=== PATIENT | male | born 1945 | race Caucasian/White ===

== ENCOUNTER → 2017-08-03 10:43 | Outpatient (CLI) | payer BC, SELFPAY | PROVIDERS: PCP Internal Medicine; Visit Provider Internal Medicine Cardiovascular Disease | DX: I48.91 Unspecified atrial fibrillation (principal); I48.92 Unspecified atrial flutter | CPT/HCPCS: 93005 ==

== ENCOUNTER → 2021-08-03 12:22 | Outpatient (CLI) | payer BC, SELFPAY | PROVIDERS: Visit Provider Internal Medicine | DX: I48.3 Typical atrial flutter (principal); I10 Essential (primary) hypertension; E78.5 Hyperlipidemia, unspecified; H65.02 Acute serous otitis media, left ear; L03.032 Cellulitis of left toe; Z12.5 Encounter for screening for malignant neoplasm of prostate ==

== ENCOUNTER → 2021-09-07 14:45 | Outpatient (CLI) | payer BC, SELFPAY ==
--- NOTE | 2021-09-07 14:52 | XR_ITS ---
FINAL REPORT CLINICAL HISTORY: CELLULITIS LT GREAT TOE FINDINGS: LEFT TOES Three views were obtained. There is no acute fracture or dislocation. There are mild degenerative changes of the great toe. There is a chronic calcification medial to the head of the 1st metatarsal. There is no acute bony erosion. There are vascular calcifications. IMPRESSION: Mild degenerative changes of the great toe. No acute bony erosion is identified. Reviewed, Interpreted and Dictated by Butch Jerez III, MD Transcribed by Dayan Palacios Authenticated by Butch Jerez III, MD on 09/07/2021 04:24:00 PM [facility]
--- NOTE | 2021-09-07 14:56 | XR_ITS ---
FINAL REPORT CLINICAL HISTORY: FEVER,CHILLS, FINDINGS: 2 views of the chest were obtained . The heart is normal in size. The mediastinum is within normal limits. There is mild pulmonary scarring. The lungs are otherwise clear. There is no pneumothorax. Osseous structures are unremarkable. IMPRESSION: No acute cardiopulmonary process. Reviewed, Interpreted and Dictated by Butch Jerez III, MD Transcribed by Sinai Vidal Authenticated by Butch Jerez III, MD on 09/07/2021 04:23:48 PM [facility]
[2021-09-07 15:35] LABS: Microscopic, Urine URINE MICROSCOPIC (MICROSCOPIC)
[2021-09-07 16:05] LABS: Basophils # 0.1 K/mm3 (0-0.2); Basophils % 0.7 % (0.1-2.0); Eosinophils # 0.2 K/mm3 (0.0-0.4); Eosinophils % 1.3 % (0.1-12.0); Hematocrit 45.1 % (42.0-52.0); Hemoglobin 15.5 g/dL (14.1-18.0); Lymphocytes # 3.4 K/mm3 (0.7-4.5); Mean Corpuscular HGB Conc 34.3 g/dL (31.8-35.4); Mean Corpuscular Hemoglobin 31.7 pg (27.0-31.2); Mean Corpuscular Volume 92.3 fl (80-94); Mean Platelet Volume 8.9 fl (7.4-10.4); Monocytes # 1.6 K/mm3 (0.1-1.0); Monocytes % 10.5 % (1.7-9.3); Neutrophils # 9.6 K/mm3 (1.8-7.8); Neutrophils % 64.5 % (37.0-80.0); Platelet Count 276 K/mm3 (142-424); Red Blood Count 4.89 M/mm3 (4.60-6.20); Red Cell Distribution Width 13.5 % (11.5-17.5); White Blood Count 14.8 K/mm3 (4.8-10.8)
[2021-09-07 16:23] LABS: Alanine Aminotransferase 28 U/L (12-78); Albumin Level 4.1 g/dl (3.5-5.0); Albumin/Globulin Ratio 1.4 (1.1-1.8); Alkaline Phosphatase 70 U/L (38-126); Anion Gap 12.4 mEq/L (5-15); Aspartate Amino Transferase 38 U/L (17-59); Bilirubin,Total 1.3 mg/dl (0.2-1.3); Blood Urea Nitrogen 22 mg/dl (9-20); Calcium 8.7 mg/dl (8.4-10.2); Carbon Dioxide 27 mmol/L (22.0-30.0); Chloride 99 mmol/L (98-107); Estimated Glomerular Filt Rate 82 ml/min (>60); GFR (African American) 100 ML/MIN (>60); Globulin 2.9 g/dL (1.3-3.2); Glucose 119 mg/dl (74-100); Potassium 4.4 mmoL/L (3.5-5.1); Sodium 134 mmol/L (136-145)
[2021-09-07 16:29] LABS: Erythrocyte Sedimentation Rate 27 mm/hr (0-20)
[2021-09-07 16:41] LABS: Appearance,Urine CLEAR (Clear); Blood, Urine Negative (Negative); Color,Urine DK YELLOW (Yellow); Glucose,Urine (UA) Negative (Negative); Ketones,Urine Negative (Negative); Leukocyte Esterase,Urine Negative (Negative); Nitrate,Urine Negative (Negative); PH,Urine 5.5 (5.0-8.5); Protein,Urine 1+ (Negative); Specific Gravity, Urine 1.025 (1.005-1.030)
[2021-09-07 17:00] LABS: Hemoglobin A1C 6.4 % (4.0-6.0)
[2021-09-07 17:04] LABS: Bilirubin,Urine 1+ (Negative)
[2021-09-07 17:09] LABS: Bacteria,Urine Trace /lpf; RBC,Urine Occasional #/hpf (0-3); Squamous Epithelial Cell,Urine Occasional #/hpf (0-5)
[2021-09-07 17:30] LABS: Vitamin B12 523 pg/mL (239-931)
[2021-09-07 17:41] LABS: Folate > 20.00 ng/mL
== END ==
PROVIDERS: PCP Internal Medicine; Visit Provider Internal Medicine
DX: R50.9 Fever, unspecified (principal); L03.031 Cellulitis of right toe; L03.032 Cellulitis of left toe; L98.492 Non-pressure chronic ulcer of skin of other sites with fat layer exposed
CPT/HCPCS: 36415; 71046; 73660; 80053; 81001; 82607; 82746; 83036; 83655; 85025; 85651; 87040; 87070; 87077; 87186; 87205

== ENCOUNTER → 2021-09-09 14:49 | Outpatient (CLI) | payer BC, SELFPAY ==
--- NOTE | 2021-09-09 | CA_ITS ---
APPROVED REPORT EXAM: Comprehensive 2D, Doppler, and color-flow Echocardiogram Lodge Officer: Delmi Watt, RCS, RVS Ht: 6 ft 0 in Wt: 265lbs BSA: 2.40 BP: 128/86 mmHg Rhythm: Atrial Fibrillation Indications: +blood cultrues-toe infectionx2 months, Hx-afib s/p ablation x2, with Left atrial clip due to viral infection. Echo Enhancing Agent Comments: Best exam possible due to chest circumference and poor acoustics. 2D Dimensions IVSd 1.41 cm LVEF (Visual) 51.80 % PWd 1.08 cm LA Volume 175.10 mL LVDd 5.45 cm LA Volume Index 72.619015 mL/m2 (M/F) 16-34 LVDs 3.99 cm Aortic Root 2.73 cm Left Atrium 5.07 cm LVOT 2.01 cm (M/F) 1.5-2.5 M-Mode Dimensions LA Diam 5.07 cm (1.9-4.0) Ao Diam 3.07 cm (2.0-3.7) TAPSE 2.02 (<1.7) LV Diastology E Decel Time 160.00 (160-240 msec) E/A Ratio 6.00 MED E' 10.20 (< 7 cm/sec) MED A' 4.10 cm/s E'/MED E' Ratio 9.65 (>14) LAT E' 13.20 (<10 cm/sec) LAT A' 3.80 cm/s E/LAT E' Ratio 7.45 (>14) Aortic Valve LVOT Max 119.00 (70-110 cm/s) LVOT VTI 21.11 cm AoV Peak Balta. 173.00 (50-130 cm/s) AO Peak GR. 12.00 mmHg AO Mean GR. 6.50 (<5 mmHg) AO VTI 29.00 (18-25 cm) VLADIMIR (VTI) 2.31 (2.5-4.5 cm2) Mitral Valve MV A Velocity 16.00 (40-130 cm/s) E/A Ratio 6.00 MV Decel. Time 160.00 (160-240 ms) Pulmonary Valve PV Peak Velocity 80.00 (50-150 cm/s) Tricuspid Valve TR P. Velocity 174.00 cm/s RAP Estimate 10.00 mmHg RVSP 22.00 mmHg Left Ventricle Technically difficult study because of the patient factors and poor acoustic windows, endocardial surfaces and valvular structures are poorly visualized. Moderately enlarged left atrium, normal left ventricular size, mild concentric left ventricular hypertrophy, ejection fraction 55% with no regional wall motion abnormality, diastolic parameters are inconclusive. Right Ventricle Right atrium is moderately enlarged, right ventricle is mildly dilated with normal contractility. Aortic Valve Aortic valve is thickened and calcified without Doppler evidence of aortic stenosis or aortic insufficiency. Mitral Valve Mitral valve leaflets are minimally thickened, there is mild mitral regurgitation. Tricuspid Valve Tricuspid grossly normal, there is mild tricuspid regurgitation, tricuspid regurgitation jet velocity is inadequate for calculation of the right ventricular systolic pressure. Pulmonic Valve Pulmonic valve is poorly visualized. Great Vessels Aortic root is normal size. Pericardium No significant pericardial effusion noted. Conclusion 1. Moderate biatrial alignment, normal left ventricular size, mild concentric left ventricular hypertrophy, estimated ejection fraction 55% with no regional wall motion abnormality, diastolic parameters are inconclusive. 2. Mildly enlarged right ventricle with normal contractility. 3. Thickened and calcified aortic valve without aortic stenosis aortic insufficiency. 4. Mild mitral and tricuspid regurgitation. 5. No significant pericardial effusion noted. 6. Inferior vena cava is poorly visualized. Electronically signed by : George Barillas MD 09/09/2021 21:39:48
== END ==
PROVIDERS: PCP Internal Medicine; Visit Provider Internal Medicine
DX: I10 Essential (primary) hypertension (principal); B95.61 Methicillin susceptible Staphylococcus aureus infection as the cause of diseases classified elsewhere
CPT/HCPCS: 93306

== ENCOUNTER 2021-09-11 11:00 | Outpatient (CLI) | payer BC, SELFPAY ==
[2021-09-11 11:35] VITALS: BP 126/73; PULSE 55; RESP 16; O2SAT 97
[2021-09-11 12:05] VITALS: BP 123/79; PULSE 51; RESP 16
[2021-09-11 12:35] VITALS: BP 126/72; PULSE 53; RESP 16
== END 2021-09-11 12:50 | disposition home or self-care (01) ==
LOC: INF 11:01
PROVIDERS: PCP Internal Medicine; Visit Provider Internal Medicine
DX: L03.032 Cellulitis of left toe (principal); B95.62 Methicillin resistant Staphylococcus aureus infection as the cause of diseases classified elsewhere
CPT/HCPCS: 96365; J0696

== ENCOUNTER 2021-09-12 10:06 | Outpatient (CLI) | payer BC, SELFPAY ==
[2021-09-12 10:08] VITALS: BP 125/80; PULSE 60; RESP 20; TEMP 36.4; O2SAT 97
== END 2021-09-12 11:30 | disposition home or self-care (01) ==
PROVIDERS: PCP Internal Medicine; Visit Provider Internal Medicine
DX: L03.032 Cellulitis of left toe (principal); B95.62 Methicillin resistant Staphylococcus aureus infection as the cause of diseases classified elsewhere
CPT/HCPCS: 96365; J0696

== ENCOUNTER 2021-09-13 09:56 | Outpatient (CLI) | payer BC, SELFPAY ==
[2021-09-13 10:03] VITALS: BP 128/78; PULSE 82; RESP 24; TEMP 36.7; O2SAT 97
--- NOTE | 2021-09-13 11:00 | PC.NURSE ---
All care and documentation by [facility]Tom nursing informatics analyst, completed under my direct supervision.
== END 2021-09-13 11:00 | disposition home or self-care (01) ==
PROVIDERS: PCP Internal Medicine; Visit Provider Internal Medicine
DX: L03.032 Cellulitis of left toe (principal); B95.62 Methicillin resistant Staphylococcus aureus infection as the cause of diseases classified elsewhere
CPT/HCPCS: 96365; J0696

== ENCOUNTER 2021-09-14 10:14 | Outpatient (CLI) | payer BC, SELFPAY ==
[2021-09-14 10:40] VITALS: BP 129/57; PULSE 53; RESP 18; O2SAT 100
[2021-09-14 11:20] VITALS: BP 118/63; PULSE 52; RESP 18
== END 2021-09-14 11:20 | disposition home or self-care (01) ==
LOC: INF 10:15
PROVIDERS: PCP Internal Medicine; Visit Provider Internal Medicine
DX: L03.032 Cellulitis of left toe (principal); B95.62 Methicillin resistant Staphylococcus aureus infection as the cause of diseases classified elsewhere
CPT/HCPCS: 96365; J0696

== ENCOUNTER 2021-09-15 10:00 | Outpatient (CLI) | payer BC, SELFPAY ==
[2021-09-15 10:37] VITALS: BP 124/84; PULSE 81; RESP 18; TEMP 36.4; O2SAT 97
[2021-09-15 11:28] VITALS: BP 132/82; PULSE 79; RESP 16; TEMP 36.4; O2SAT 97
== END 2021-09-15 11:30 | disposition home or self-care (01) ==
LOC: INF 10:01
PROVIDERS: PCP Internal Medicine; Visit Provider Internal Medicine
DX: L03.032 Cellulitis of left toe (principal); B95.62 Methicillin resistant Staphylococcus aureus infection as the cause of diseases classified elsewhere
CPT/HCPCS: 96365; J0696

== ENCOUNTER 2021-09-16 09:51 | Outpatient (CLI) | payer BC, SELFPAY ==
[2021-09-16 10:18] VITALS: BP 128/76; PULSE 54; RESP 16; TEMP 36.7; O2SAT 98
[2021-09-16 10:45] VITALS: BP 146/82; PULSE 56; RESP 16
== END 2021-09-16 10:45 | disposition home or self-care (01) ==
LOC: INF 09:51
PROVIDERS: PCP Internal Medicine; Visit Provider Internal Medicine
DX: L03.032 Cellulitis of left toe (principal); B95.62 Methicillin resistant Staphylococcus aureus infection as the cause of diseases classified elsewhere
CPT/HCPCS: 96365; J0696

== ENCOUNTER 2021-09-17 10:01 | Outpatient (CLI) | payer BC, SELFPAY ==
[2021-09-17 10:20] VITALS: BP 120/74; PULSE 67; RESP 18; O2SAT 97
[2021-09-17 10:55] VITALS: BP 113/73; PULSE 64; RESP 16
== END 2021-09-17 11:05 | disposition home or self-care (01) ==
LOC: INF 10:02
PROVIDERS: PCP Internal Medicine; Visit Provider Internal Medicine
DX: L03.032 Cellulitis of left toe (principal); B95.62 Methicillin resistant Staphylococcus aureus infection as the cause of diseases classified elsewhere
CPT/HCPCS: 96365; J0696

== ENCOUNTER 2021-09-18 09:59 | Outpatient (CLI) | payer BC, SELFPAY ==
[2021-09-18 10:16] VITALS: BP 126/80; PULSE 68; RESP 16; TEMP 36.4; O2SAT 97
[2021-09-18 11:12] VITALS: BP 122/69; PULSE 70; RESP 16; TEMP 36.4; O2SAT 98
== END 2021-09-18 11:12 | disposition home or self-care (01) ==
LOC: INF 10:00
PROVIDERS: PCP Internal Medicine; Visit Provider Internal Medicine
DX: L03.032 Cellulitis of left toe (principal); B95.62 Methicillin resistant Staphylococcus aureus infection as the cause of diseases classified elsewhere
CPT/HCPCS: 96365; J0696

== ENCOUNTER → 2021-09-19 09:54 | Outpatient (CLI) | payer BC, SELFPAY ==
[2021-09-19 10:09] VITALS: BP 141/86; PULSE 71; RESP 20; TEMP 36.7; O2SAT 97
== END ==
PROVIDERS: PCP Internal Medicine; Visit Provider Internal Medicine
DX: L03.032 Cellulitis of left toe (principal); B95.62 Methicillin resistant Staphylococcus aureus infection as the cause of diseases classified elsewhere
CPT/HCPCS: 96365; G0463; J0696

== ENCOUNTER 2021-09-20 10:45 | Outpatient (CLI) | payer BC, SELFPAY ==
[2021-09-20 11:03] VITALS: BP 125/71; RESP 20; O2SAT 96
== END 2021-09-20 11:46 | disposition home or self-care (01) ==
LOC: INF 10:46
PROVIDERS: PCP Internal Medicine; Visit Provider Internal Medicine
DX: L03.032 Cellulitis of left toe (principal); B95.62 Methicillin resistant Staphylococcus aureus infection as the cause of diseases classified elsewhere
CPT/HCPCS: 96365; J0696

== ENCOUNTER 2021-09-21 09:59 | Outpatient (CLI) | payer BC, SELFPAY ==
[2021-09-21 10:14] VITALS: BP 136/74; PULSE 68; RESP 18; TEMP 36.4; O2SAT 98
[2021-09-21 11:00] VITALS: BP 148/88; PULSE 57; RESP 18; O2SAT 98
== END 2021-09-21 11:00 | disposition home or self-care (01) ==
LOC: INF 10:00
PROVIDERS: PCP Internal Medicine; Visit Provider Internal Medicine
DX: L03.032 Cellulitis of left toe (principal)
CPT/HCPCS: 96365; J0696

== ENCOUNTER 2021-09-22 10:27 | Outpatient (CLI) | payer BC, SELFPAY ==
[2021-09-22 10:50] VITALS: BP 133/74; PULSE 56; RESP 18; TEMP 36.7; O2SAT 99
[2021-09-22 11:37] VITALS: BP 135/52; PULSE 77; RESP 18
== END 2021-09-22 11:37 | disposition home or self-care (01) ==
LOC: INF 10:28
PROVIDERS: PCP Internal Medicine; Visit Provider Internal Medicine
DX: L03.032 Cellulitis of left toe (principal); B95.62 Methicillin resistant Staphylococcus aureus infection as the cause of diseases classified elsewhere
CPT/HCPCS: 96365; J0696

== ENCOUNTER 2021-09-23 09:18 | Outpatient (CLI) | payer BC, SELFPAY ==
[2021-09-23 09:30] VITALS: BP 129/83; PULSE 64; RESP 18; TEMP 36.3; O2SAT 98
[2021-09-23 10:08] VITALS: BP 125/79; PULSE 69; RESP 18; O2SAT 98
== END 2021-09-23 10:08 | disposition home or self-care (01) ==
LOC: INF 09:19
PROVIDERS: PCP Internal Medicine; Visit Provider Internal Medicine
DX: L03.032 Cellulitis of left toe (principal); B95.62 Methicillin resistant Staphylococcus aureus infection as the cause of diseases classified elsewhere
CPT/HCPCS: 96365; J0696

== ENCOUNTER 2021-09-24 10:22 | Outpatient (CLI) | payer BC, SELFPAY ==
[2021-09-24 11:20] VITALS: BP 139/81; PULSE 66; RESP 18; TEMP 36.4; O2SAT 98
[2021-09-24 12:18] VITALS: BP 134/74; PULSE 59; RESP 16; TEMP 36.4; O2SAT 98
== END 2021-09-24 12:20 | disposition home or self-care (01) ==
LOC: INF 10:22
PROVIDERS: PCP Internal Medicine; Visit Provider Internal Medicine
DX: L03.032 Cellulitis of left toe (principal); B95.62 Methicillin resistant Staphylococcus aureus infection as the cause of diseases classified elsewhere
CPT/HCPCS: 96365; J0696

== ENCOUNTER 2022-02-11 10:00 | Outpatient (RCR) | payer BC, SELFPAY | END 2022-02-11 10:05 | disposition home or self-care (01) | LOC: PT 10:00 | PROVIDERS: PCP Internal Medicine; Visit Provider Internal Medicine | DX: L97.521 Non-pressure chronic ulcer of other part of left foot limited to breakdown of skin (principal) | CPT/HCPCS: 97140; 97162; 97164; 97597 ==

== ENCOUNTER 2024-01-23 10:36 | Outpatient (CLI) | payer BC, SELFPAY ==
--- NOTE | 2024-01-23 10:48 | XR_ITS ---
FINAL REPORT CLINICAL HISTORY: Fall from ladder 01/07/2024 COMPARISON: None FINDINGS: LEFT KNEE 3 views of the left knee were obtained. There is no acute fracture or dislocation. Osteophytes are noted along the superior margin of the patella. There is sharpening of the tibial spines. Soft tissues are unremarkable. IMPRESSION: No acute bony abnormality. Reviewed, Interpreted and Dictated by Brock Barajas MD Transcribed by Shira Berkowitz Authenticated and [facility]
== END 2024-01-23 23:59 | disposition home or self-care (01) ==
LOC: RAD 10:36
PROVIDERS: PCP Internal Medicine; Visit Provider Internal Medicine
DX: M25.562 Pain in left knee (principal); M25.462 Effusion, left knee
CPT/HCPCS: 73562

== ENCOUNTER 2024-05-31 12:45 | Emergency (ER) | payer MEDICARE, BC, SELFPAY ==
[2024-05-31 14:15] VITALS: BP 139/88; PULSE 102; RESP 19; TEMP 36.8; O2SAT 98; BMI 31.0
--- NOTE | 2024-05-31 14:31 | EXP.UTC ---
Discharge Plan Disposition Patient Disposition: Home, Self-Care Condition: Good Prescriptions Prescriptions: No Action metformin 500 mg tablet 500 mg PO BID Patient Comments: TAKE 1 TABLET 2 TIMES EACH DAY WITH MEALS metoprolol tartrate 100 mg tablet 100 mg PO BID Patient Comments: TAKE 1 TABLET BY MOUTH TWICE DAILY amlodipine 5 mg tablet 5 mg PO DAILY Patient Comments: TAKE 1 TABLET BY MOUTH DAILY Referrals Follow up/Referrals: Sánchez Torres MD [Primary Care Provider] - See instructions Activity Restrictions/Add. Instructions Additional Instructions/Restrictions: *Monitor Temp, Over the counter Motrin or Tylenol as directed/as needed Tylenol every 4 hours and Motrin every 6 hours (as long as your family doctor has told you that you can take it) for fever or pain. and straight to ER if unable to lower temp less than 101.0 after medication given *Warm salt water gargles may help to soothe the throat *Throat Lozenges? *Warm fluids like tea with honey may help to soothe the throat? *Sleep elevated *Humidifier/Vaporizer Follow up IMMEDIATELY for new or worsening symptoms or no Noticeable improvement over the next 48-72 hours. 911 for difficulty breathing or swallowing You was tested for RAPID COVID and influenza it should be back in the next few hours and be available on the [facility] [employer] [facility] Health Portal Clinical Impressions Clinical Impression: Viral syndrome Instructions Patient Instructions: DI for Viral Syndrome Print Language Print Language: Albanian Discharge ED Provider: Rachel Fox [facility] [place] General Stated complaint: Cough and congestion Mode of Arrival: Ambulatory Source of Information: Patient and Spouse Limitations: No Limitations Time Seen by Provider: 05/31/24 14:31 Description of Symptoms (Recalled from Triage Doc. by RN): PATIENT C/O COUGH, LOW-GRADE FEVER, AND BODY ACHES SINCE YESTERDAY HEENT Symptoms (Recalled from RN notes): No Resp Symptoms (Recalled from RN notes): Yes Skin Symptoms (Recalled from RN notes): No MS Symptoms (Recalled from RN notes): No Functional Status (Recalled from RN notes): WNL History of Present Illness Provider Complaint: Patient states that he started feeling bad yesterday with body aches, chills, nasal congestion and cough States today he wasnt feeling any better and cough getting worse and having body aches so he came in to get checked Related Data Home Medications ?Medication ?Instructions ?Recorded ?Confirmed amlodipine 5 mg tablet 5 mg PO DAILY 05/31/24 05/31/24 metformin 500 mg tablet 500 mg PO BID 05/31/24 05/31/24 metoprolol tartrate 100 mg tablet 100 mg PO BID 05/31/24 05/31/24 Allergies Allergy/AdvReac Type Severity Reaction Status Date / Time No Known Allergies Allergy Verified 04/26/24 14:51 Worker's Comp Is this a Worker's Comp case?: No [facility] Disclaimer: The information contained in this section may have been updated after the patient was seen, as this information can be updated by other users. Social History (Updated 04/30/24 @ 15:03 by Sánchez Torres MD) Smoking Status: Never smoker alcohol intake: never current occupational status: retired Travel in the last 8 weeks: Inside the [place] household members: spouse housing: house Have you lived/traveled outside US in past 30 days?: No Contact w/someone who lives/traveled outside US past 30 days?: No Exposure to someone with infectious disease in past 14 days?: No Do you have a fever (greater than 100.4 F or 38 C)?: No Have you tested positive for COVID-19: No Exposed to someone with COVID-19 in past 14 days?: No Do you have a sore throat?: No Do you have a cough?: No Do you have any weakness?: No Do you have any diarrhea?: No Are you experiencing any unusual bleeding?: No Do you have any muscle aches/pain?: No Do you have any abdominal pain?: No Are you experiencing loss of taste or smell?: No ROS Obtained: Yes All systems reviewed & no additional complaints except as documented and Yes Systems reviewed as appropriate & no additional complaints except as documented Constitutional Constitutional: Reports system reviewed and no additional complaints, except as documented, Reports as per HPI, Reports body ache, Reports chills and Reports fever(s) (low grade) ENT Ears, Nose, Mouth, and Throat: Reports system reviewed and no additional complaints, except as documented, Reports as per HPI, Reports nasal congestion and Reports nasal discharge Cardiovascular Cardiovascular: Reports system reviewed and no additional complaints, except as documented and Reports as per HPI Respiratory Respiratory: Reports system reviewed and no additional complaints, except as documented, Reports as per HPI and Reports cough Physical Exam General General appearance: alert and in no apparent distress ENT ENT exam: Present mucous membranes moist and TM's normal bilaterally Expanded ENT Exam Nose exam: Absent sinus tenderness Throat exam: Present normal inspection Respiratory Respiratory exam: Present normal lung sounds bilaterally; Absent respiratory distress or wheezes Cardiovascular Cardiovascular exam: Present regular rate, normal rhythm and normal heart sounds Abdominal Exam Abdominal exam: Present soft and normal bowel sounds; Absent distention or tenderness Neurological Exam Neurological exam: Present alert, oriented X3 and normal gait Medical Decision Making Medical Records Screening: Per USPSTF and CDC recommendations, given the prevalence of disease in our region, it is our hospital?s policy to screen for HIV and viral Hepatitis for all patients aged 18 and over and those with ongoing risk factors. Merlin Inquiry Pt receiving controlled substance: No Merlin was queried for this patient: No Vital Signs: 05/31/24 14:15 Temperature 98.3 F Temperature Source Oral Pulse Rate [Left Brachial] 102 H Respiratory Rate 19 Blood Pressure [Left Arm] 139/88 Blood Pressure Mean [Left Arm] 105 Blood Pressure Source [Left Arm] Automatic Cuff Blood Pressure Position [Left Arm] Sitting 02 Sat by Pulse Oximetry 98 Oxygen Delivery Method Room Air Lab Data Lab results reviewed: Yes I reviewed the patient's lab results.
[2024-05-31 14:38] LABS: UTC Influenza A Antigen Negative (Negative); UTC Influenza B Antigen Negative (Negative)
[2024-05-31 15:10] VITALS: BP 139/88; PULSE 102; RESP 19; TEMP 36.8; O2SAT 98
[2024-05-31 15:19] LABS: Coronavirus 19, PCR Not Detected (NotDetected); Influenza B, PCR Not Detected (NotDetected)
[2024-05-31 15:58] LABS: Influenza A, PCR Detected (NotDetected)
== END 2024-05-31 15:14 | disposition home or self-care (01) ==
PROVIDERS: Emergency Provider Nurse Practitioner; PCP Internal Medicine
DX: B34.9 Viral infection, unspecified (principal)
CPT/HCPCS: 87636; 87804; 99213; G0381

== ENCOUNTER 2024-06-05 14:04 | Outpatient (CLI) | payer MEDICARE, BC, SELFPAY | END 2024-06-05 23:59 | disposition home or self-care (01) | LOC: LAB.DROPOF 14:05 | PROVIDERS: PCP Internal Medicine; Visit Provider Internal Medicine | DX: S90.422A Blister (nonthermal), left great toe, initial encounter (principal); L08.9 Local infection of the skin and subcutaneous tissue, unspecified; B95.7 Other staphylococcus as the cause of diseases classified elsewhere | CPT/HCPCS: 87070; 87077; 87186; 87205 ==

== ENCOUNTER 2024-11-20 14:50 | Inpatient (IN) | payer MEDICARE, BC, SELFPAY ==
[2024-11-20] VITALS (23 sets, daily range): BP systolic 100–173; BP diastolic 64–101; PULSE 50–76; RESP 13–20; TEMP 36.1–36.7; O2SAT 92–100; BMI 33.0
--- NOTE | 2024-11-20 14:54 | ECG_ITS ---
APPROVED REPORT Exam: Resting ECG HR:76 bpm ECG Measurements Heart Rate 76 AXES QRSd 89 QRS 12 QT 399 T 51 QTc 429 Conclusion ATRIAL FIBRILLATION POSSIBLE RIGHT VENTRICULAR CONDUCTION DELAY [RSR (QR) IN V1/V2] ABNORMAL RHYTHM ECG Electronically signed by : JABARI DAVALOS, 11/22/2024 23:34:55
--- OUTSIDE RECORDS SUMMARY | 2024-11-20 15:07 | XMS_ITS | Clinical Summary ---
Author Organization [facility] [place] [id number] Care Team Providers Care Sole Cutter Name Role Phone Sánchez Torres MD Primary Care Provider [phone] Allergies No known active allergies Medications metoprolol tartrate (Lopressor) 100 MG tablet Take 100 mg by mouth 2 (two) times a day. 01/07/2022 Active aspirin 81 MG EC tablet Take 81 mg by mouth 1 (one) time each day. Active metFORMIN (Glucophage) 500 MG tablet TAKE ONE TABLET BY MOUTH TWICE DAILY FOR sugar --TAKE WITH FOOD-- 02/16/2022 Active amLODIPine (Norvasc) 5 MG tablet Take 5 mg by mouth 1 (one) time each day. 03/31/2022 Active Active Problems Problem Noted Date Diagnosed Date Obesity (BMI 35.0-39.9 without comorbidity) 05/06 Joint stiffness of foot, left 04/05/2022 Foot ulceration, right, with fat layer exposed 1 Ulcer of toe due to diabetes mellitus 02/15/2022 Acquired hallux valgus 02/15/2022 Diabetic neuropathy associat ed with type 2 diabetes mellitus 02/15/2022 Ulcer of toe of left foot, with fat layer expose d 02/15/2022 Family History Medical History Relation Name Comments Heart disease Father Stroke Father Relation Name Status Comments Father Social History Tobacco Use Types Packs/Day Years Used Date Smoking Tobacco: Never Smokeless Tobacco: Never Tobacco Cessation:Counseling Given: Not Answered Alcohol Use Standard Drinks/Week Comments Not Currently 0 (1 standard drink = 0.6 oz pur e alcohol) Sex and Gender Information Value Date Recorded Sex Assigned at Not on file Legal Sex Male 8:13 PM EDT Gender Identity Not on file Sexual Orientation Not on file Last Filed Vital Signs Vital Sign Reading Time Taken Comments Blood Pressure 129/83 05/24/2022 10:44 AM EST Pulse 60 05/24/2022 10:44 AM EST Temperature 36.8 C (98.3 F) 05/24/2022 10:44 AM EST Respiratory Rate 18 05/24/2022 10:44 AM EST Oxygen Saturation - - Inhaled Oxygen Concentration - - Weight 120 kg (265 lb) 03/22/2022 1:15 PM EDT Height 182.9 cm (6') 03/22/2022 1:15 PM EDT Body Mass Index 35.94 03/22/2022 1:15 PM EDT Plan of Treatment Health Maintenance Due Date Last Done Comments [facility]-Depression Screening 1945 [facility]-Hepatitis C Screening 1945 [facility]-/Child/Adol SDOH Screenings 1945 Diabetes: Dental Exam 1957 [facility]- SDOH Screenings 1965 [facility]-Adult SDOH Screenings 1965 [facility]-DTaP,Tdap,and Td Vaccines (1 - Tdap) 1966 [facility]-Zoster Vaccines (1 of 2) 1997 [facility]-Diabetes: Hemoglobin A1C 06/17/2018 12/18/2017, 08/01/2017 [facility]-Pneumococcal Vaccine: 50+ Years (2 of 2 - PCV) 01/03/2019 01/03/2018 [facility]-RSV Vaccine: 60+ Years or (1 - 1-dose 75+ series) 2022 [id number] Vaccine ( - season) 2024 02/27/2022, 03/05/2021, 07/11/2020, Additional history exists [facility]-Influenza Vaccine (Season Ended) 2025 02/27/2022 [facility]-Obesity Intervention Completed 022, 04/19/2022, 04/05/2022, Additional history exists HPV Vaccines Aged Out No longer eligi ble based on patient's age to complete this topic [facility]-HIB Vaccines Aged Out No longer e ligible based on patient's age to complete this topic [facility]-Hepatitis A Vaccines Aged Out No longer eligible based on patient's age to complete this topic [facility]-IPV Vaccines Aged Out No longer e ligible based on patient's age to complete this topic [facility]-Rotavirus Vaccines Aged Out No lo nger eligible based on patient's age to complete this topic [place] [address] [facility], [facility] Care Teams Sole Cutter Relationship Specialty Start Date End Date Sánchez Torres MD [address] [place] [address] PCP - General 02/15/22
--- NOTE | 2024-11-20 15:09 | PC.NURSE ---
DR AMBROCIO AT BEDSIDE
[2024-11-20] MEDS: ACETAMINOPHEN 500MG TAB 1000 MG PO (15:36)
[2024-11-20] MEDS: KETOROLAC 30MG/ML VIAL 15 MG IV (15:36)
--- NOTE | 2024-11-20 15:36 | XR_ITS ---
FINAL REPORT CLINICAL HISTORY: anterior chest wall pain by sternal notch COMPARISON: 10/30/2016 FINDINGS: CHEST 2 VIEWS PA AND LATERAL There is mild cardiomegaly. The mediastinum is unremarkable. Left atrial appendage clip is identified. There are mild chronic changes at the bases. There is no pneumothorax. IMPRESSION: No acute process. Reviewed, Interpreted and Dictated by Brock Barajas MD Transcribed by Sally Phan Authenticated and [facility]
--- NOTE | 2024-11-20 15:38 | HMH.EDCP ---
Discharge Plan Disposition Patient Disposition: Admitted Prescriptions Prescriptions: No Action aspirin [Adult Low Dose Aspirin] 81 mg tablet,delayed release (DR/EC) 81 mg PO DAILY metoprolol tartrate 100 mg tablet 100 mg PO BID Patient Comments: TAKE 1 TABLET BY MOUTH TWICE DAILY amlodipine 5 mg tablet 5 mg PO DAILY Patient Comments: TAKE 1 TABLET BY MOUTH DAILY Referrals Follow up/Referrals: Sánchez Torres MD [Primary Care Provider, Medical] - See instructions Clinical Impressions Clinical Impression: ST elevation (STEMI) myocardial infarction Print Language Print Language: Turkish Discharge ED Provider: Aly Scherer HPI General Chief Complaint: Chest Pain Stated Complaint: Chest Pain Time Seen by Provider: 11/20/24 15:10 Mode of Arrival: Ambulatory Source of Information: Patient Description of Symptoms (Recalled from ER Triage Doc. by RN): PT REPORTS INTERMITTENT UPPER CHEST PAIN THAT RADIATES TO JAW AND DOWN BILATERAL ARMS, DESCRIBES AT TINGLING. PT DENIES SHORTNESS OF BREATH, N/V OR ABDOMINAL PAIN. History of Present Illness HPI narrative: Please note that above description of symptoms, in this electronic medical record under categorization of recalled from ER triage doctor by RN are reflective of an initial nursing assessment, however, is not reflective of my full history and physical exam that was personally taken and clarified. Consequentially, this preceding description of symptoms, which may include the patient's categorized chief complaint in the EMR, do not reflect my personal clinical impression, and the ultimate description of history of present illness and patient stated complaints should be deferred to this section of the note. Unless stated otherwise or congruent with this section of the note, additional signs, symptoms, or incongruence should be interpreted as inaccurate with my clinical impression. Related Data Home Medications ?Medication ?Instructions ?Recorded ?Confirmed amlodipine 5 mg tablet 5 mg PO DAILY 05/31/24 11/20/24 metoprolol tartrate 100 mg tablet 100 mg PO BID 05/31/24 11/20/24 aspirin 81 mg tablet,delayed 81 mg PO DAILY 06/05/24 11/20/24 release (Adult Low Dose Aspirin) Allergies Allergy/AdvReac Type Severity Reaction Status Date / Time No Known Allergies Allergy Verified 11/20/24 15:12 [facility] Disclaimer: The information contained in this section may have been updated after the patient was seen, as this information can be updated by other users. Social History Smoking Status: Never smoker alcohol intake: never current occupational status: retired Travel in the last 8 weeks?: Inside the [place] household members: spouse housing: house Have you lived/traveled outside [place] in past 30 days?: No Contact w/someone who lives/traveled outside US past 30 days?: No Exposure to someone with infectious disease in past 14 days?: No Do you have a fever (greater than 100.4 F or 38 C)?: No Have you tested positive for COVID-19?: No Exposed to someone with COVID-19 in past 14 days?: No Do you have a sore throat?: No Do you have a cough?: No Do you have any weakness?: No Do you have any diarrhea?: No Are you experiencing any unusual bleeding?: No Do you have any muscle aches/pain?: No Do you have any abdominal pain?: No Are you experiencing loss of taste or smell?: No Other Medical History Have you received the Pneumonia Vaccine: Yes ROS Obtained: Yes All systems reviewed & no additional complaints except as documented Physical Exam General General appearance: alert and in no apparent distress Neck Neck exam: Present trachea midline Chest Chest inspection: Present normal inspection and symmetric chest wall rise; Absent tenderness Respiratory Respiratory exam: Present normal lung sounds bilaterally; Absent respiratory distress, wheezes, stridor, accessory muscle use or prolonged expiratory phase Cardiovascular Cardiovascular exam: Present normal rhythm, irregular rhythm, normal heart sounds and other (Pulses equal and symmetric in upper and lower extremities) Extremities Exam Extremities exam: Absent edema Neurological Exam Neurological exam: Present alert, oriented X3 and CN II-XII intact Skin Skin exam: Present warm and dry; Absent cyanosis, diaphoresis or pallor HEART Score HEART Score HEART Score assessment performed?: Yes History (anamnesis): Moderately suspicious ECG: Non-specific disturbance Age: >65 years Risk factors: 1-2 risk factors Troponin: </= normal limit HEART Score: 5 Critical Care Critical Care Time Critical Care Time: Yes (cardiac) Attestation: On 11/20/24, the high probability of a clinically significant, sudden or life threatening deterioration of the following system(s) required my full and direct attention, intervention and personal management. The time I documented below is in addition to time spent performing reported procedures but includes the following listed in this critical care notation. Total Time Total Critical Care Time: 35 Medical Decision Making Medical Records Medical records reviewed: Yes I reviewed the patient's medical records. Merlin Inquiry Pt receiving controlled substance: No Merlin was queried for this patient: No Vital Signs Vital Signs: 11/20/24 15:03 Temperature 98.0 F Temperature Source Oral Pulse Rate [Apical] 72 Respiratory Rate 18 Blood Pressure [Right Arm] 173/101 H Blood Pressure Mean [Right Arm] 125 Blood Pressure Source [Right Arm] Automatic Cuff Blood Pressure Position [Right Arm] Sitting 02 Sat by Pulse Oximetry 98 Oxygen Delivery Method Room Air Lab Data Labs: Lab Results 11/20/24 14:55: WBC 12.9 H, RBC 4.83, Hgb 15.1, Hct 43.9, MCV 90.9, MCH 31.3 H, MCHC 34.4, RDW 12.7, Plt Count 293, MPV 10.3, Neut % (Auto) 54.0, Lymph % (Auto) 34.0, [place] % (Auto) 9.4 H, Eos % (Auto) 1.7, Baso % (Auto) 0.5, Neut # (Auto) 7.0, Lymph # (Auto) 4.4, [place] # (Auto) 1.2 H, Eos # (Auto) 0.2, Baso # (Auto) 0.1, PT 11.0, INR 0.99, APTT 26.5, Sodium 134 L, Potassium 4.2, Chloride 100, Carbon Dioxide 31 H, Anion Gap 7.2, BUN 16, Creatinine 0.80, Estimated Creat Clear 97, Estimated GFR 94, Est GFR ( Amer) 113, Glucose 176 H, Calcium 9.2, Magnesium 1.9, Total Bilirubin 0.8, AST 31, ALT 24, Alkaline Phosphatase 55, Troponin I 0.10 H, NT-Pro-B Natriuret Pep 434, Total Protein 7.4, Albumin 4.2, Globulin 3.2, Albumin/Globulin Ratio 1.3, Lipase 202, HCV Ab CHANG w/Rflx PCR Qn Negative, HIV Ag/Ab Combo Qual Negative 11/20/24 14:55 11/20/24 14:55 Response Orders (Tests/Meds): ED MEDICATIONS Generic Name Dose Route Start Last Admin Trade Name Freq PRN Reason Stop Dose Admin Heparin Sodium (Porcine) 10,000 unit 11/20/24 17:03 Heparin Sodium 5,000 Unit/Ml Vial IV 11/20/24 17:04 ONCE ONE Nitroglycerin/Dextrose 250 mls @ 1.5 mls/hr 11/20/24 17:00 Nitroglycerin 50mg/250ml D5w IV 12/20/24 16:59 .Q24H MATTHIAS Protocol 5 MCG/MIN Discontinued Medications Generic Name Dose Route Start Last Admin Trade Name Janiya PRN Reason Stop Dose Admin Acetaminophen 1,000 mg 11/20/24 15:28 11/20/24 15:36 Acetaminophen 500mg Tab PO 11/20/24 15:29 1,000 mg ONCE ONE Administration Aspirin 324 mg 11/20/24 16:44 11/20/24 16:51 Aspirin 81mg Chewable Tablet PO 11/20/24 16:45 324 mg ONCE ONE Administration Ketorolac Tromethamine 15 mg 11/20/24 15:28 11/20/24 15:36 Ketorolac 30mg/Ml Vial IV 11/20/24 15:29 15 mg ONCE ONE Administration ORDERS Category Date Time Status CXR 2 view (NOT portable) [XR chest 2V] Stat Exams 11/20/24 15:36 Completed Complete Blood Count Auto Diff Stat Lab 11/20/24 14:55 Completed Comprehensive Metabolic Panel Stat Lab 11/20/24 14:55 Completed HIV Combo Stat Lab 11/20/24 14:55 Completed Hepatitis C Ab Qual. W/ RFX Stat Lab 11/20/24 14:55 Completed Lipase Stat Lab 11/20/24 14:55 Completed Magnesium Stat Lab 11/20/24 14:55 Completed NT Pro Brain Natriuretic Pep. Stat Lab 11/20/24 14:55 Completed PT INR [Prothrombin Time INR] Stat Lab 11/20/24 14:55 Completed PTT [Activated Partial Thrombo Time] Stat Lab 11/20/24 14:55 Completed Troponin I Q3H Lab 11/20/24 18:45 Ordered Troponin I Q3H Lab 11/20/24 21:45 Ordered Troponin I Stat Lab 11/20/24 14:55 Completed MDM Narrative Medical Decision Narrative: 79-year-old male presenting with chest pain. He states that the chest pain started about 3 days prior to this. He was not doing anything particular when it started. Has never had anything like this in the past. It is intermittent, severe in intensity when flares up, mild to completely gone when wanes. No shortness of breath, diaphoresis, nausea, vomiting, or any other associated symptoms. The pain starts in his upper chest near his sternal notch, radiates to both shoulders. Does not radiate to the back, jaw, down the arm, etc. No lower extremity edema, no PND orthopnea, has noticed anything that makes the pain better, just goes away on its own. Nothing in particular makes it worse including exertion, etc. Came in for further evaluation at the behest of his . History was obtained via conversation with patient and . On arrival, patient hemodynamically stable, alert, oriented x4, appropriate, GCS 15, moving all extremities spontaneously, pupils equal and reactive to light. Full physical exam performed and significant for very clinically well-appearing male no acute distress. Speaking in full sentences. Lungs are clear anteriorly and posterior bilaterally. Cardiac exam without murmurs gallops or rubs. He is in A-fib with irregular rhythm, but nontachycardic and rate controlled. Lower extremity pulses are intact and symmetric. No lower extremity edema. Grossly neurologically intact. Chest pain is not made worse with application of pressure directly to the chest differential includes musculoskeletal chest wall pain, ACS, [place], PE, pneumothorax, among others. Patient was given Toradol and acetaminophen for symptomatic management and correction of underlying abnormalities. Patient placed on continuous cardiac monitoring and continuous pulse ox with initial blood pressure 173/101, heart rate 72, saturation 98% on room air. Independent interpretation of EKG shows atrial fibrillation 76 bpm QRS 89, QTc 429. Normal axis. T wave inversions aVL. No elevations. Incomplete right bundle branch block morphology.. Workup independently interpreted and significant for nonactionable CBC or chemistry, but elevated troponin 0.1. On independent interpretation of imaging, nonactionable chest x-ray findings. See radiology read for full review of final results. Heart score 5. After troponin, repeat EKG obtained. Has deepening T wave inversions in aVL as well as what appear to be new elevations in 3 and aVF consistent with diagonal versus right coronary disease. Cardiology was contacted and case was discussed at length, patient to go to [facility] in the setting of STEMI. [employer]umbling [employer] Supervisor disclaimer Much of this encounter note is an electronic diplomatic interpreter/translator spoken language to printed text. Electronic diplomatic interpreter/translator of the spoken language may permit errors. Although I have reviewed the note, some errors may still exist.
[2024-11-20 15:40] LABS: Basophils # 0.1 K/mm3 (0-0.2); Basophils % 0.5 % (0.1-2.0); Eosinophils # 0.2 Kmm3 (0.0-0.4); Eosinophils % 1.7 % (0.1-12.0); Hematocrit 43.9 % (42.0-52.0); Hemoglobin 15.1 g/dL (14.1-18.0); Immature Granulocytes # 0.05 10^3uL; Immature Granulocytes % 0.4 %; Lymphocytes # 4.4 K/mm3 (0.7-4.5); Mean Corpuscular HGB Conc 34.4 g/dL (31.8-35.4); Mean Corpuscular Hemoglobin 31.3 pg (27.0-31.2); Mean Corpuscular Volume 90.9 fl (80-94); Mean Platelet Volume 10.3 fl (7.4-10.4); Monocytes # 1.2 K/mm3 (0.1-1.0); Monocytes % 9.4 % (1.7-9.3); Nucleated Red Blood Cells # 0 10^3/uL; Nucleated Red Blood Cells % 0 %; Platelet Count 293 K/mm3 (142-424); Red Blood Count 4.83 M/mm3 (4.60-6.20); Red Cell Distribution Width 12.7 % (11.5-17.5); White Blood Count 12.9 K/mm3 (4.8-10.8)
[2024-11-20 15:45] LABS: Alanine Aminotransferase 24 U/L (12-78); Albumin Level 4.2 g/dl (3.5-5.0); Albumin/Globulin Ratio 1.3 (1.1-1.8); Alkaline Phosphatase 55 U/L (38-126); Anion Gap 7.2 mEq/L (5-15); Aspartate Amino Transferase 31 U/L (17-59); Bilirubin,Total 0.8 mg/dl (0.2-1.3); Blood Urea Nitrogen 16 mg/dl (9-20); Calcium 9.2 mg/dl (8.4-10.2); Carbon Dioxide 31 mmol/L (22.0-30.0); Chloride 100 mmol/L (98-107); Creatinine Clearance Estimated 97 mL/min (50-200); Estimated Glomerular Filt Rate 94 ml/min (>60); GFR (African American) 113 ML/MIN (>60); Globulin 3.2 g/dL (1.3-3.2); Glucose 176 mg/dl (74-100); Lipase 202 U/L (23-300); Magnesium 1.9 mg/dl (1.6-2.3); Potassium 4.2 mmoL/L (3.5-5.1); Sodium 134 mmol/L (136-145); Total Protein,Serum 7.4 g/dl (6.3-8.2)
[2024-11-20 15:57] LABS: NT Pro Brain Natriuretic Pep. 434 pg/mL (0-450)
--- NOTE | 2024-11-20 15:57 | PC.NURSE ---
ROUNDED ON PT, NO NEEDS AT THIS TIME. CALL LIGHT WITHIN REACH
[2024-11-20 16:00] LABS: Activated Partial Thrombo Time 26.5 seconds (22.8-30.6)
[2024-11-20 16:01] LABS: INR 0.99 (0.9-1.1)
[2024-11-20 16:51] LABS: Hepatitis C Ab Qual. W/ RFX NEGATIVE (Negative)
[2024-11-20] MEDS: ASPIRIN 81MG CHEWABLE TABLET 324 MG PO (16:51)
--- NOTE | 2024-11-20 16:52 | PC.NURSE ---
DR AMBROCIO AT BEDSIDE TO UPDATE PT AND FAMILY
[2024-11-20 16:53] LABS: HIV Combo NEGATIVE (Negative)
--- NOTE | 2024-11-20 16:58 | ECG_ITS ---
APPROVED REPORT Exam: Resting ECG HR:66 bpm ECG Measurements Heart Rate 66 AXES QRSd 91 QRS 9 QT 409 T 65 QTc 423 Conclusion Atrial fibrillation Controlled response Incomplete right bundle branch block morphology ST depression aVL greater than [address] elevations 3 greater than aVF and 2 Concern for acute AGUSTÍN Electronically signed by : NATHAN AMBROCIO, 11/27/2024 07:36:03
--- NOTE | 2024-11-20 17:01 | PC.NURSE ---
DR AMBROCIO SPEAKING WITH DR GARCIA
--- NOTE | 2024-11-20 17:03 | PC.NURSE ---
STEMI ALERT CALLED
--- NOTE | 2024-11-20 17:09 | PC.NURSE ---
At Approx 1705 hrs a STEMI Alert was called on this pt.
--- NOTE | 2024-11-20 17:12 | PC.NURSE ---
CONSENT EXPLAINED AND SIGNED BILATERAL GROIN AND WRIST CLIPPED ZOLL PADS IN PLACE
--- NOTE | 2024-11-20 17:20 | IR_ITS ---
APPROVED REPORT Patient Location: [facility] Billing Clerk: ORTEGA Cash RT (R) PROCEDURES Left heart catheterization Selective coronary angiogram Drug-eluting stent deployment to the ostial and proximal dominant right coronary artery with additional drug-eluting stent deployment to the mid and distal dominant right coronary in a noncontiguous manner INDICATION Acute inferior ST elevation myocardial infarction, Coronary artery disease Informed consent was obtained prior to the procedure. COMPLICATIONS NONE Estimated Blood Loss: LESS THAN 10 ML TECHNIQUE One percent lidocaine used to anesthetize the right anterior aspect of the wrist. The right radial artery was accessed via the Seldinger technique. A 6 Divehi sheath was placed in the right radial artery. 2.5 mg of Verapamil, 800 mcg of nitroglycerin, 1mg Lidocaine were given through the arterial sheath. The JL3 catheter was also used to performselective coronary angiogram. An AL 0.75 guide catheter was used to intubate the right coronary artery followed by a Choice PT extra-support wire pushed through the subtotal occlusion of the mid right coronary artery. A guide liner was advanced and a 3 mm x 12 mm noncompliant balloon was deployed at 20 miguel on 2 occasions to reduce the critical stenosis. This was followed by a 5 mm x 26 mm Perry frontier stent deployed at 26 miguel reducing the critical stenosis to 0%. KEVAN I flow was improved to KEVAN-3 flow. Following this an additional 5 mm x 30 mm [place] frontier stent was deployed in the ostial proximal segment at 20 miguel reducing the critical stenosis to 0%. At the end the procedure the apparatus was removed the sheath was removed and hemostasis was achieved using TR banding patient was transferred to the postop putting in stable condition ANGIOGRAPHIC RESULTS The left main artery Normal The left anterior descending artery Is proximally normal and then has an additional 40% calcified stenosis in the midportion with distal 60 and 70% calcified stenoses as the LAD wraps the apex. It gives rise to a large heavily diseased first diagonal artery which has a proximal calcified complex 80% stenosis. The vessel then gives rise to a small to medium size superior branch and then a subtotally occluded smaller inferior branch The circumflex artery Is nondominant and has severe vascular ectasia in the proximal and midportion. It gives rise to a small first obtuse marginal artery which has 30 to 40% proximal stenoses and a medium sized second obtuse marginal artery which has a calcified 50% mid vessel stenosis. The third obtuse marginal artery is small and patent The right coronary artery There is a dominant vessel extensively and severely calcified with severe vascular ectasia throughout. Ostially there is a 70% stenosis with proximal 60% followed by an additional calcified 60% stenosis. The 40% calcified eccentric stenosis is identified. The midportion is a complex calcified 95% stenosis accompanied by KEVAN I flow. Following revascularization the posterior descending artery is patent while the posterior lateral branch has a mid vessel calcified 90% stenosis along a 90 degree bend which then bifurcates into 2 small branches both of which have ostial calcified 80% stenosis The RODRÍGUEZ ventriculogram reveals Not performed The left ventricular end-diastolic pressure Not measured IMPRESSION Acute inferior ST elevation myocardial infarction involving the mid dominant right coronary artery Successful stenting of the ostial proximal calcified right coronary artery severe disease reduced to 0% with 1 drug-eluting stent followed by an additional drug-eluting stent reducing a critical stenosis to 0% Moderate to severe diffuse vascular ectasia throughout the right coronary artery Severely diseased posterior lateral branch which is along a 90% bend which is not amenable to percutaneous revascularization Severely diseased first diagonal artery which is not amenable nor appropriate for percutaneous intervention Small vessel disease in the distal LAD which is not amenable to percutaneous revascularization 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 Aspirin Plavix 2. LDL less than 55 to be achieved with high intensity statin 3. Supportive care 4. Medical management for the remaining coronary artery disease 5. Official echocardiogram in the morning 6. Continuous telemetry for at least 48 hours Electronically signed by : Anjel Huston MD 11/20/2024 18:25:00
[2024-11-20] MEDS: HEPARIN SODIUM 5,000 UNIT/ML VIAL 10000 UNIT IV (17:23)
[2024-11-20] MEDS: NITROGLYCERIN IN 5 % DEXTROSE 250 ML 1.5 MG IV (17:25)
--- NOTE | 2024-11-20 17:27 | PC.NURSE ---
DR STALLINGS NOTIFIED OF STEMI ALERT AND PT GOING TO CATHLAB AND WILL NEED ADMISSION
--- NOTE | 2024-11-20 17:32 | PC.NURSE ---
PT TO CATHLAB VIA STRETCHER REPORT GIVEN TO RC FERRIS
--- NOTE | 2024-11-20 17:33 | PC.NURSE ---
1732 pt was taken to the Lathe Set Up Operator
[2024-11-20] MEDS: diphenhydrAMINE 50MG/ML VIAL 50 MG IV (18:12)
[2024-11-20] MEDS: HEPARIN 1,000 UNITS/500ML NS (CATH LAB) 3000 UNIT IV (18:12)
[2024-11-20] MEDS: 0.9 % SODIUM CHLORIDE 500 ML 25 ML IV (18:12)
[2024-11-20] MEDS: NITROGLYCERIN 800MCG/8ML SYR (CATH LAB) 800 MCG IA (18:12)
[2024-11-20] MEDS: FENTANYL 100MCG/2ML VIAL 50 MCG IV (18:13)
[2024-11-20] MEDS: LIDOCAINE 1% 10ML MDV 10 ML IJ (18:13)
[2024-11-20] MEDS: VERAPAMIL 2.5MG/ML 2ML VIAL 2.5 MG IV (18:13)
[2024-11-20] MEDS: HEPARIN 1,000 UNITS/ML 10ML VIAL (CATH LAB) 5000 UNIT IV (18:13)
[2024-11-20] MEDS: MIDAZOLAM HCL 1MG/ML 5ML VIAL 1 MG IV (18:13)
[2024-11-20] MEDS: CLOPIDOGREL 300MG TABLET 600 MG PO (18:22)
[2024-11-20] MEDS: IOPAMIDOL-370 (76%);100ML BOTTLE 125 ML IV (18:45)
[2024-11-20 18:47] LABS: CATHL Activated Clotting Time 258 SEC (74-125)
[2024-11-20 18:48] LABS: CATHL Activated Clotting Time 227 SEC (74-125)
--- NOTE | 2024-11-20 19:20 | P.HP_ITS ---
<Statement entered by Frantz Lemon MD - 11/20/24 20:06> Rounded on patient after nurse practitioner. Personally examined and interviewed patient. Agree with exam findings and care plan as documented. History of Present Illness *Admission Date: 11/20/24 *Reason for visit:: Chest pain *History of present illness: This is a 79-year-old male who has a past medical history significant for atrial fibrillation, hypertension, impaired glucose, and peripheral neuropathy who presents with a chief complaint of chest pain. Due to patient's symptoms, he presented to the emergency room for evaluation. While in emergency room, patient had an EKG that was consistent with a STEMI in the inferior. Due to these findings, patient was transition to the Trauma Counsellor for left heart cath. Patient did receive 2 drug-eluting stents to the right coronary artery. Post cath, patient has been admitted for further management. During my evaluation of the patient, patient states his chest pain started approximately 3 days ago. Patient states his chest pain was with out activity. He also mentions that his chest pain is midsternal and radiates to both shoulders and is intermittent. He voices that his chest pain waxes and wanes and it was without any diaphoresis, nausea, vomiting, or shortness of air. Post cath, patient states his chest pain has resolved. Currently, he is denying any lightheadedness, dizziness, fever, chills, rigors, PND, orthopnea, nausea, vomiting, shortness of breath, dyspnea, or diarrhea. Patient is currently in a sinus bradycardia. Additional pertinent labs obtained include white blood cell count of 12.9, sodium 134, carbon oxide of 31, blood glucose 176, and troponin of 0.10. [facility] Disclaimer: The information contained in this section may have been updated after the patient was seen, as this information can be updated by other users. Social History Smoking Status: Never smoker alcohol intake: never current occupational status: retired Travel in the last 8 weeks?: Inside the [place] household members: spouse housing: house Have you lived/traveled outside US in past 30 days?: No Contact w/someone who lives/traveled outside US past 30 days?: No Exposure to someone with infectious disease in past 14 days?: No Do you have a fever (greater than 100.4 F or 38 C)?: No Have you tested positive for COVID-19?: No Exposed to someone with COVID-19 in past 14 days?: No Do you have a sore throat?: No Do you have a cough?: No Do you have any weakness?: No Do you have any diarrhea?: No Are you experiencing any unusual bleeding?: No Do you have any muscle aches/pain?: No Do you have any abdominal pain?: No Are you experiencing loss of taste or smell?: No Other Medical History Have you received the Pneumonia Vaccine: Yes Review of Systems Review of Systems Review of systems:: pertinent systems reviewed and negative unless documented below Constitutional Constitutional: Reports system reviewed and no additional complaints, except as documented Eyes Eyes: Reports system reviewed and no additional complaints, except as documented ENT Ears, Nose, Mouth, and Throat: Reports system reviewed and no additional complaints, except as documented *Cardiovascular Cardiovascular: Reports chest pain and Reports chest pain at rest *Respiratory Respiratory: Reports system reviewed and no additional complaints, except as documented *Gastrointestinal Gastrointestinal: Reports system reviewed and no additional complaints, except as documented *Genitourinary Genitourinary: Reports system reviewed and no additional complaints, except as documented *Musculoskeletal Musculoskeletal: Reports system reviewed and no additional complaints, except as documented Integumentary/Breasts Skin/Breast: Reports system reviewed and no additional complaints, except as documented *Neurologic Neurologic: Reports system reviewed and no additional complaints, except as documented Psychiatric Psychiatric: Reports system reviewed and no additional complaints, except as documented Endocrine Endocrine: Reports system reviewed and no additional complaints, except as documented Hematologic/Lymphatic Hematologic/Lymphatic: Reports system reviewed and no additional complaints, except as documented Allergic/Immunologic Allergic/Immunologic: Reports system reviewed and no additional complaints, except as documented Meds Home Medications and Allergies Home Medications ?Medication ?Instructions ?Recorded ?Confirmed ?Type amlodipine 5 mg tablet 5 mg PO DAILY 05/31/2411/20 History metoprolol tartrate 100 mg tablet 100 mg PO BID 11/20/24 History aspirin 81 mg tablet,delayed 81 mg PO DAILY 06/05/24 0 11/20/24 History release (Adult Low Dose Aspirin) New Prescriptions to Start Prescriptions: Allergies Allergy/AdvReac Type Severity Reaction Status Date / Time No Known Allergies Allergy Verified 11/20/24 15:12 Exam Data for Last 24 hours Vital signs and Labs for Last 24 Hours: Temp Pulse Resp BP Pulse Ox O2 Del Method 97 F L 63 18 135/81 97 Room Air 11/20/24 18:25 11/20/24 18:43 11/20/24 18:43 11/20/24 18:43 11/20/24 18:43 11/20/24 19:00 Laboratory Results - last 24 hr 11/20/24 14:55: WBC 12.9 H, RBC 4.83, Hgb 15.1, Hct 43.9, MCV 90.9, MCH 31.3 H, MCHC 34.4, RDW 12.7, Plt Count 293, MPV 10.3, Neut % (Auto) 54.0, Lymph % (Auto) 34.0, Kay % (Auto) 9.4 H, Eos % (Auto) 1.7, Baso % (Auto) 0.5, Neut # (Auto) 7.0, Lymph # (Auto) 4.4, [place] # (Auto) 1.2 H, Eos # (Auto) 0.2, Baso # (Auto) 0.1, PT 11.0, INR 0.99, APTT 26.5, Sodium 134 L, Potassium 4.2, Chloride 100, Carbon Dioxide 31 H, Anion Gap 7.2, BUN 16, Creatinine 0.80, Estimated Creat Clear 97, Estimated GFR 94, Est GFR ( Amer) 113, Glucose 176 H, Calcium 9.2, Magnesium 1.9, Total Bilirubin 0.8, AST 31, ALT 24, Alkaline Phosphatase 55, Troponin I 0.10 H, NT-Pro-B Natriuret Pep 434, Total Protein 7.4, Albumin 4.2, Globulin 3.2, Albumin/Globulin Ratio 1.3, Lipase 202, HCV Ab CHANG w/Rflx PCR Qn Negative, HIV Ag/Ab Combo Qual Negative 11/20/24 17:48: Activated Clotting Time 227 H* 11/20/24 18:11: Activated Clotting Time 258 H* I & O for Last 24 hours: Intake & Output 11/17/24 11/18/24 11/19/24 11/20/24 23:59 23:59 23:59 23:59 Weight 110.677 kg Constitutional Constitutional: no acute distress, obese and cooperative *Routine HEENT Exam Head: Present normocephalic and atraumatic Eye: Present EOMI and PERRL ENT: Present mucous membranes moist *Routine Neck Exam Neck: Present supple, full ROM and trachea midline *Routine Respiratory Exam Respiratory: Present CTA bilaterally, normal respiratory effort, able to speak in complete sentences and symmetric chest movement *Routine Cardiovascular Exam Cardiovascular: Present Normal S1, Normal S2 and irregular rhythm *Routine Abdominal Exam Abdominal: Present soft, normoactive bowel sounds and obese *Routine Rectal Exam Rectal:: deferred *Routine Genitalia Exam Genitalia:: deferred *Routine Extremities Exam Extremities: Present full ROM, pulses intact and normal capillary refill Routine Back/Spine/Pelvis Exam Back/Spine: Present full ROM *Routine Skin Exam Skin: Present intact, dry and normal turgor *Routine Neurological Exam Neurological: Present alert, oriented X3, CN II-XII intact and moving all extremities Routine Psychiatric Exam Psychiatric: Present normal affect, normal thought process, cooperative, good insight and good judgment H&P: Result Impressions 72-year-old male who presents with a chief complaint of intermittent chest pain over the past 3 days is found to have coronary artery disease requiring drug-eluting stents to the RCA x 2. Post cath, patient is without any chest pain Assessment and Plan *Assessment and plan (1) ST elevation (STEMI) myocardial infarction: Status: Acute Qualifiers: Involved coronary artery: right coronary artery Qualified Code(s): I21.11 - ST elevation (STEMI) myocardial infarction involving right coronary artery Category: Medical Code(s): I21.3 - ST elevation (STEMI) myocardial infarction of unspecified site (2) Afib: Status: Acute Qualifiers: Atrial fibrillation type: longstanding persistent Qualified Code(s): I48.11 - Longstanding persistent atrial fibrillation Category: Medical Code(s): I48.91 - Unspecified atrial fibrillation (3) CAD (coronary artery disease): Status: Acute Qualifiers: Coronary Disease-Associated Artery/Lesion type: [place] artery [place] vs. transplanted heart: [place] heart Associated angina: with unspecified form of angina Qualified Code(s): I25.119 - Atherosclerotic heart disease of [place] coronary artery with unspecified angina pectoris Category: Medical Code(s): I25.10 - Atherosclerotic heart disease of [place] coronary artery without angina pectoris (4) Leukocytosis: Status: Acute Qualifiers: Leukocytosis type: unspecified Qualified Code(s): D72.829 - Elevated white blood cell count, unspecified Category: Medical Code(s): D72.829 - Elevated white blood cell count, unspecified Plan Assessment: Chest pain: STEMI: In the inferior: Coronary artery disease: - Patient is status post drug-eluting stents to the right coronary artery x 2 - Patient has been prescribed dual antiplatelet therapy (81 mg of aspirin and 75 mg of Plavix) more than likely patient will require at least 6 months of therapy - Will obtain 2D echo - Will continue to trend patient's troponin Atrial fibrillation with controlled ventricular response -Will continue metoprolol if heart rate is greater than 60 Leukocytosis - Currently there are no active signs of infection - Will trend white blood cell count - If fever we will obtain blood cultures x 2 and additional imaging - Will obtain procalcitonin Plan: Admit patient to the stepdown unit in on telemetry security monitor Activity as tolerated Vital signs every 4 hours Appreciate any input from cardiology Cardiac diet Hemoglobin A1c Lipid panel TSH BMP/CBC Full code I have discussed this case with attending physician Dr. Lemon and I look forward to more input
[2024-11-20 19:41] LABS: Blood Urea Nitrogen 14 mg/dl (9-20); Calcium 8.7 mg/dl (8.4-10.2); Carbon Dioxide 27 mmol/L (22.0-30.0); Chloride 104 mmol/L (98-107); Creatinine Clearance Estimated 97 mL/min (50-200); Estimated Glomerular Filt Rate 109 ml/min (>60); GFR (African American) 132 ML/MIN (>60); Glucose 97 mg/dl (74-100); Sodium 133 mmol/L (136-145)
[2024-11-20 20:08] LABS: Troponin I 0.31 ng/ml (0.00-0.034)
--- NOTE | 2024-11-20 22:10 | PC.NURSE ---
radial band off at this time, telfa and tegaderm applied
[2024-11-20 22:11] LABS: Basophils # 0.1 K/mm3 (0-0.2); Basophils % 0.5 % (0.1-2.0); Eosinophils # 0.2 Kmm3 (0.0-0.4); Eosinophils % 2.1 % (0.1-12.0); Hematocrit 40.5 % (42.0-52.0); Hemoglobin 13.6 g/dL (14.1-18.0); Immature Granulocytes # 0.07 10^3uL; Immature Granulocytes % 0.6 %; Lymphocytes # 4.1 K/mm3 (0.7-4.5); Lymphocytes % 35.1 % (10-50); Mean Corpuscular HGB Conc 33.6 g/dL (31.8-35.4); Mean Corpuscular Hemoglobin 30.2 pg (27.0-31.2); Mean Platelet Volume 10.2 fl (7.4-10.4); Monocytes # 1.1 K/mm3 (0.1-1.0); Monocytes % 9.1 % (1.7-9.3); Neutrophils # 6.2 K/mm3 (1.8-7.8); Neutrophils % 52.6 % (37.0-80.0); Nucleated Red Blood Cells # 0 10^3/uL; Nucleated Red Blood Cells % 0 %; Platelet Count 261 K/mm3 (142-424); Red Cell Distribution Width 12.6 % (11.5-17.5); Red Cell Distribution Width-SD 41.4 fL; White Blood Count 11.7 K/mm3 (4.8-10.8)
[2024-11-21] VITALS (8 sets, daily range): BP systolic 109–156; BP diastolic 63–86; PULSE 60–130; RESP 16–25; TEMP 36.6–37.2; O2SAT 96–99; BMI 31.6
--- NOTE | 2024-11-21 03:37 | PC.NURSE ---
patient alert and oriented x4, ambulates to and from bathroom with standby assistance, rested well this shift. no complaints of pain, dressing applied to right radial cath site, patient remains in afib on tele with HR between 50s-60s. patient tolerating room air with o2 sats >95%. call button is in reach
--- NOTE | 2024-11-21 06:00 | CA_ITS ---
APPROVED REPORT EXAM: Comprehensive 2D, Doppler, and color-flow Echocardiogram Environmental Compliance Specialist: Delmi Watt, RCS, RVS Ht: 6 ft 0 in Wt: 244lbs BSA: 2.32 BP: 135/81 mmHg Indications: STEMI 2D Dimensions IVSd 1.25 cm LVEF (Visual) 63.90 % PWd 0.97 cm LVDd 5.09 cm LVDs 3.31 cm Left Atrium 4.80 cm M-Mode Dimensions RVDd 3.53 cm (0.9-2.6) LA Diam 5.28 cm (1.9-4.0) LVDd 5.10 cm (3.5-5.7) LVDs 3.72 cm (3.5-5.7) IVSd 1.10 cm (0.6-1.1) PWd 1.36 cm (0.6-1.1) EF (Teich) 56.30% EPSs 0.34 cm FS 29.70% EDV (Teich) 134.80 mL TAPSE 1.53 (<1.7) ESV (Teich) 58.90 mL LV Diastology E Decel Time 173 (160-240 msec) E/A Ratio 2.93 MED A' 2.50 cm/s LAT A' 3.10 cm/s Aortic Valve VLADIMIR Index 0.54 cm2/m2 AoV Peak Balta. 181.0 (50-130 cm/s) AO Peak GR. 13.10 mmHg AO Mean GR. 6.50 (<5 mmHg) AO VTI 32.6 (18-25 cm) VLADIMIR (VTI) 1.27 (2.5-4.5 cm2) Mitral Valve MV A Velocity 26.0 (40-130 cm/s) E/A Ratio 2.93 Pulmonary Valve FL End VMAX 187.0 cm/s Tricuspid Valve TR P. Velocity 244.00 cm/s RAP Estimate 10.00 mmHg RVSP 33.70 mmHg Left Ventricle The left ventricle is normal size. The left ventricular systolic function is low normal. Proximal septal thickening is present. IVSd 1.4 cm at the proximal septal LV wall. There is normal LV segmental wall motion. Diastolic function is indeterminate. LVEF is 50%. Right Ventricle The right ventricle is moderately dilated. The right ventricular systolic function is mildly reduced. Atria The left atrium is severely dilated. The right atrium is severely dilated. There is no Doppler evidence of interatrial shunt. Aortic Valve The aortic valve is mildly thickened. There is no hemodynamically significant aortic valvular stenosis. Trace aortic regurgitation. Mitral Valve The mitral valve is normal in structure. No evidence of mitral valve stenosis. Mild mitral regurgitation. . Tricuspid Valve Tricuspid valve is grossly normal in structure and function. Mild tricuspid regurgitation. RVSP 20-25 mmHg. Pulmonic Valve The pulmonary valve is normal in structure. Mild pulmonic regurgitation. Great Vessels The aortic root is normal in size. IVC is normal in size and collapses >50% with inspiration. Pericardium There is no pericardial effusion. Other Information Study Quality: Fair Conclusion Low normal LV systolic function (LVEF 50%). Proximal septal thickening. IVSd 1.4 cm. Moderate RV dilation with mild reduction in RV function. Severe biatrial dilation. Mild MR, mild TR, mild PI. In the setting of asymmetric proximal septal LV wall thickening of IVSd 1.4 cm, as well as biatrial dilation, further evaluation for hypertrophic versus infiltrative cardiomyopathy is suggested with cardiac MRI (amyloidosis + HCM protocol). Electronically signed by : Jessica Levy MD 11/21/2024 11:38:38
[2024-11-21 06:21] LABS: Basophils # 0.1 K/mm3 (0-0.2); Basophils % 0.5 % (0.1-2.0); Eosinophils # 0.3 Kmm3 (0.0-0.4); Hematocrit 43.2 % (42.0-52.0); Hemoglobin 14.5 g/dL (14.1-18.0); Immature Granulocytes # 0.05 10^3uL; Immature Granulocytes % 0.4 %; Lymphocytes # 3.1 K/mm3 (0.7-4.5); Lymphocytes % 23.6 % (10-50); Mean Corpuscular HGB Conc 33.6 g/dL (31.8-35.4); Mean Corpuscular Hemoglobin 30.4 pg (27.0-31.2); Mean Corpuscular Volume 90.6 fl (80-94); Mean Platelet Volume 10.3 fl (7.4-10.4); Monocytes # 1.4 K/mm3 (0.1-1.0); Monocytes % 10.9 % (1.7-9.3); Neutrophils # 8.2 K/mm3 (1.8-7.8); Neutrophils % 62.6 % (37.0-80.0); Nucleated Red Blood Cells # 0 10^3/uL; Nucleated Red Blood Cells % 0 %; Platelet Count 255 K/mm3 (142-424); Red Blood Count 4.77 M/mm3 (4.60-6.20); Red Cell Distribution Width 12.7 % (11.5-17.5); White Blood Count 13.1 K/mm3 (4.8-10.8)
[2024-11-21 06:39] LABS: Chloride 106 mmol/L (98-107); Sodium 136 mmol/L (136-145)
[2024-11-21 06:40] LABS: Potassium 4.1 mmoL/L (3.5-5.1)
[2024-11-21 06:43] LABS: Anion Gap 8.1 mEq/L (5-15); Blood Urea Nitrogen 12 mg/dl (9-20); Calcium 8.4 mg/dl (8.4-10.2); Carbon Dioxide 26 mmol/L (22.0-30.0); Creatinine Clearance Estimated 93 mL/min (50-200); Estimated Glomerular Filt Rate 109 ml/min (>60); GFR (African American) 132 ML/MIN (>60); Glucose 104 mg/dl (74-100)
[2024-11-21 07:08] LABS: Chol/HDL Ratio 5.7 (1-3.5); Cholesterol 195 mg/dl (140-200); HDL Cholesterol 34 mg/dl (40-60); Triglycerides 279 mg/dl (30-150); VLDL Cholesterol 56 mg/dL (0-40)
[2024-11-21 07:09] LABS: Thyroid Stimulating Hormone 3.74 uIU/mL (0.465-4.68)
[2024-11-21 07:19] LABS: Direct LDL Cholesterol 97.82 mg/dL (100-129)
[2024-11-21] MEDS: CLOPIDOGREL 75MG TAB 75 MG PO (08:33)
[2024-11-21] MEDS: ASPIRIN EC 81MG TABLET 81 MG PO (08:33)
[2024-11-21 08:40] LABS: Hemoglobin A1C 5.7 % (4.0-6.0)
[2024-11-21 09:16] LABS: Procalcitonin 0.053 ng/mL (0.0-2.0)
--- NOTE | 2024-11-21 10:22 | P.PN_ITS ---
<Statement entered by Frantz Lemon MD - 11/21/24 16:26> Rounded on patient after nurse practitioner. Personally examined and interviewed patient. Agree with exam findings and care plan as documented. Subjective *Date: 11/21/24 *Time: 14:59 Interval history: Patient sitting up in bed, denies chest pain, shortness of breath, abdominal pain, nausea, vomiting. He states that he had a great night. No complaints at this time. He says he ate breakfast well. Medical Exam Vital signs and Labs for Last 24 Hours: Vital Signs Temp Pulse Pulse Resp BP BP Pulse Ox 11/21/24 09:00 11/21/24 08:00 98 F 18 156/84 H 97 11/21/24 08:00 96 11/21/24 06:36 11/21/24 05:00 11/21/24 04:00 70 11/21/24 04:00 98.5 F 76 20 123/85 97 11/21/24 03:00 11/21/24 01:40 68 16 111/67 97 11/21/24 01:00 11/21/24 00:40 63 18 109/63 L 97 11/21/24 00:00 98.3 F 11/21/24 00:00 60 11/20/24 23:40 62 14 130/85 98 11/20/24 23:00 11/20/24 22:40 65 18 115/73 95 11/20/24 21:40 51 L 16 112/82 98 11/20/24 21:10 66 16 114/70 96 11/20/24 21:00 11/20/24 20:40 60 13 100/64 L 96 11/20/24 20:00 60 11/20/24 20:00 58 L 11/20/24 20:00 98.1 F 11/20/24 19:40 51 L 14 118/68 96 11/20/24 19:30 50 L 11/20/24 19:25 57 L 15 123/74 100 11/20/24 19:10 56 L 18 124/72 96 11/20/24 19:00 11/20/24 18:55 56 L 18 114/82 92 L 11/20/24 18:43 63 18 135/81 97 11/20/24 18:35 51 L 20 128/80 97 11/20/24 18:25 97 F L 70 58 L 18 129/85 96 11/20/24 17:47 98.0 F 71 18 153/91 H 11/20/24 17:30 67 153/91 H 100 11/20/24 17:26 76 154/95 H 99 11/20/24 17:13 73 156/98 H 11/20/24 16:30 65 17 135/77 99 11/20/24 16:00 62 18 150/82 H 99 11/20/24 15:30 17 145/91 H 11/20/24 15:03 98.0 F 72 18 173/101 H 98 11/20/24 15:00 18 160/98 H O2 Del Method 11/21/24 09:00 Room Air 11/21/24 08:00 Room Air 11/21/24 08:00 Room Air 11/21/24 06:36 Room Air 11/21/24 05:00 Room Air 11/21/24 04:00 11/21/24 04:00 Room Air 11/21/24 03:00 Room Air 11/21/24 01:40 Room Air 11/21/24 01:00 Room Air 11/21/24 00:40 Room Air 11/21/24 00:00 11/21/24 00:00 11/20/24 23:40 Room Air 11/20/24 23:00 Room Air 11/20/24 22:40 Room Air 11/20/24 21:40 Room Air 11/20/24 21:10 Room Air 11/20/24 21:00 Room Air 11/20/24 20:40 Room Air 11/20/24 20:00 11/20/24 20:00 Room Air 11/20/24 20:00 11/20/24 19:40 Room Air 11/20/24 19:30 11/20/24 19:25 Room Air 11/20/24 19:10 Room Air 11/20/24 19:00 Room Air 11/20/24 18:55 Room Air 11/20/24 18:43 Room Air 11/20/24 18:35 Room Air 11/20/24 18:25 Room Air 11/20/24 17:47 Room Air 11/20/24 17:30 11/20/24 17:26 11/20/24 17:13 11/20/24 16:30 11/20/24 16:00 11/20/24 15:30 11/20/24 15:03 Room Air 11/20/24 15:00 Intake and Output 11/20/24 11/21/24 11/21/24 23:59 07:59 15:59 Intake Total 240 / 550 310 / 550 Output Total 525 / 525 450 / 450 Balance -525 / -285 -210 / 100 310 / 100 Intake: Intake, Oral Amount 240 / 550 310 / 550 Output: Output, Urine Amount 525 / 525 450 / 450 Other: Number of Unmeasured Voids 0 Weight 105.778 kg Patient Weight 11/21/24 23:59 Weight 105.778 kg Laboratory Results - last 24 hr 11/20/24 14:55: WBC 12.9 H, RBC 4.83, Hgb 15.1, Hct 43.9, MCV 90.9, MCH 31.3 H, MCHC 34.4, RDW 12.7, Plt Count 293, MPV 10.3, Neut % (Auto) 54.0, Lymph % (Auto) 34.0, [place] % (Auto) 9.4 H, Eos % (Auto) 1.7, Baso % (Auto) 0.5, Neut # (Auto) 7 .0, Lymph # (Auto) 4.4, [place] # (Auto) 1.2 H, Eos # (Auto) 0.2, Baso # (Auto) 0.1, PT 11.0, INR 0.99, APTT 26.5, Sodium 134 L, Potassium 4.2, Chloride 100, Carbon Dioxide 31 H, Anion Gap 7.2, BUN 16, Creatinine 0.80, Estimated Creat Clear 97, Estimated GFR 94, Est GFR ( Amer) 113, Glucose 176 H, Calcium 9.2, Magnesium 1.9, Total Bilirubin 0.8, AST 31, ALT 24, Alkaline Phosphatase 55, Troponin I 0.10 H, NT-Pro-B Natriuret Pep 434, Total Protein 7.4, Albumin 4.2, Globulin 3.2, Albumin/Globulin Ratio 1.3, Lipase 202, HCV Ab CHANG w/Rflx PCR Qn Negative, HIV Ag/Ab Combo Qual Negative 11/20/24 17:48: Activated Clotting Time 227 H* 11/20/24 18:11: Activated Clotting Time 258 H* 11/20/24 19:23: Sodium 133 L, Potassium 4.0, Chloride 104, Carbon Dioxide 27, Anion Gap 6.0, BUN 14, Creatinine 0.70, Estimated Creat Clear 97, Estimated GFR 109, Est GFR ( Amer) 132, Glucose 97 D, Calcium 8.7, Troponin I 0.31 H 11/20/24 22:00: WBC 11.7 H, RBC 4.50 L, Hgb 13.6 L, Hct 40.5 L, MCV 90.0, MCH 30.2, MCHC 33.6, RDW 12.6, Plt Count 261, MPV 10.2, Neut % (Auto) 52.6, Lymph % (Auto) 35.1, [place] % (Auto) 9.1, Eos % (Auto) 2.1, Baso % (Auto) 0.5, Neut # (Auto) 6.2, Lymph # (Auto) 4.1, [place] # (Auto) 1.1 H, Eos # (Auto) 0.2, Baso # (Auto) 0.1 11/21/24 05:40: WBC 13.1 H, RBC 4.77, Hgb 14.5, Hct 43.2, MCV 90.6, MCH 30.4, MCHC 33.6, RDW 12.7, Plt Count 255, MPV 10.3, Neut % (Auto) 62.6, Lymph % (Auto) 23.6, [place] % (Auto) 10.9 H, Eos % (Auto) 2.0, Baso % (Auto) 0.5, Neut # (Auto) 8.2 H, Lymph # (Auto) 3.1, [place] # (Auto) 1.4 H, Eos # (Auto) 0.3, Baso # (Auto) 0.1, Sodium 136, Potassium 4.1, Chloride 106, Carbon Dioxide 26, Anion Gap 8.1, BUN 12, Creatinine 0.70, Estimated Creat Clear 93, Estimated GFR 109, Est GFR ( Amer) 132, Glucose 104 H, Hemoglobin A1c 5.7, Calcium 8.4, Triglycerides 279 H, Cholesterol 195, LDL Cholesterol Direct 97.82 L, VLDL Cholesterol 56 H, HDL Cholesterol 34 L, Cholesterol/HDL Ratio 5.7 H, Procalcitonin 0.053, TSH 3.74 I & O for Labs for Last 24 Hours: Intake & Output 11/18/24 11/19/24 11/20/24 11/21/24 23:59 23:59 23:59 23:59 Intake Total 550 / 550 Output Total 525 / 525 450 / 450 Balance -525 / -285 100 / 100 Weight 110.677 kg 105.778 kg Constitutional: Present no acute distress Head: Present atraumatic Neck: Present normal inspection and full ROM Respiratory: Present CTA bilaterally and normal respiratory effort Cardiac: Present Regular Rate, Irregularly Regular and No Murmur Comment:: A-fib GI: Present soft and normal bowel sounds; Absent distention or tenderness Rectal (male): Present deferred (male): Present other Extremities: Present normal inspection and full ROM Skin: Present intact; Absent erythema Neuro: Present Grossly Intact, alert, awake, oriented x 3 and moves all extremities Assessment and Plan *Assessment and plan (1) ST elevation (STEMI) myocardial infarction: Status: Acute Qualifiers: Involved coronary artery: right coronary artery Qualified Code(s): I21.11 - ST elevation (STEMI) myocardial infarction involving right coronary artery Category: Medical Code(s): I21.3 - ST elevation (STEMI) myocardial infarction of unspecified site (2) CAD (coronary artery disease): Status: Acute Qualifiers: Associated angina: with unspecified form of angina Coronary Disease-Associated Artery/Lesion type: [place] artery [place] vs. transplanted heart: [place] heart Qualified Code(s): I25.119 - Atherosclerotic heart disease of [place] coronary artery with unspecified angina pectoris Category: Medical Code(s): I25.10 - Atherosclerotic heart disease of [place] coronary artery without angina pectoris (3) Chronic atrial fibrillation: Status: Chronic Category: Medical Code(s): I48.20 - Chronic atrial fibrillation, unspecified (4) Status post left heart catheterization (LHC): Status: Acute Category: Medical Code(s): Z98.890 - Other specified postprocedural states (5) Afib: Status: Acute Qualifiers: Atrial fibrillation type: longstanding persistent Qualified Code(s): I48.11 - Longstanding persistent atrial fibrillation Category: Medical Code(s): I48.91 - Unspecified atrial fibrillation (6) Leukocytosis: Status: Acute Qualifiers: Leukocytosis type: unspecified Qualified Code(s): D72.829 - Elevated white blood cell count, unspecified Category: Medical Code(s): D72.829 - Elevated white blood cell count, unspecified Plan Mr. Lemos is a 79-year-old male who was admitted from the [facility] after a STEMI. He is now s/p left heart cath with stent placement. Patient admitted to the hospital for 48-hour monitoring post cath. #STEMI- In the inferior: #Coronary artery disease: ? Patient feels well this morning. No complaints. Denies chest pain, shortness of breath. - Patient is status post drug-eluting stents to the right coronary artery x 2 - Patient has been prescribed dual antiplatelet therapy (81 mg of aspirin and 75 mg of Plavix) more than likely patient will require at least 6 months of therapy. - LVEF is 50%. Recommendation of a cardiac MRI. ?Triglycerides elevated at 279, total cholesterol 195. #Atrial fibrillation with controlled ventricular response ? Patient is on telemetry, A-fib, patient has chronic A-fib sees Dr. Jones for management. Prior to admission he was not on long-term anticoagulation, he is status post left atrial appendage clip. - Patient takes metoprolol 100 mg twice daily. Will continue metoprolol if heart rate is greater than 60. ? Per cardiology, will start losartan 50 mg daily due to STEMI and CAD #Leukocytosis - Currently there are no active signs of infection, white count is 13.1. Will continue to monitor, CBC ordered for the morning. - Patient has remained afebrile. - Procalcitonin, 0.053. Full code Cardiac diet Ambulate as tolerated DAPT therapy for VTE Cardiology consulted
--- NOTE | 2024-11-21 11:33 | EXP.CARD.CON ---
History of Present Illness History of Present Illness Consult date: 11/21/24 Consult reason: chest pain Chief complaint: Chest pain History of present illness: This is a 79-year-old white gentleman who presented to the emergency department with complaints of chest pain. He has a past medical history of atrial fibrillation, hypertension. The patient states that he started having chest pain on Tuesday. He reports that this is a muscle pain that radiates across his chest and down his bilateral arms and causes tingling. He states that his jaws also felt tight and he states he had to small episodes on Tuesday as well. Then on Tuesday night the chest pain recurred. He states that this was more severe than it had previously been and he just did not feel well. He rated the chest pain a 5 out of 10. He denied associated shortness of breath, nausea vomiting or diaphoresis. He states that nothing worsened or improved the chest pain. Upon arrival to the emergency department the patient was found to have an acute inferior STEMI. Patient was taken directly to the cardiac catheterization lab and had 2 stents placed to the right coronary artery. This morning he denies any chest pain or pressure. He denies any shortness of breath or edema. He denies any fever, chills, nausea, vomiting, diarrhea, PND orthopnea. [facility] shows: Acute inferior ST elevation myocardial infarction involving the mid dominant right coronary artery Successful stenting of the ostial proximal calcified right coronary artery severe disease reduced to 0% with 1 drug-eluting stent followed by an additional drug-eluting stent reducing a critical stenosis to 0% Moderate to severe diffuse vascular ectasia throughout the right coronary artery Severely diseased posterior lateral branch which is along a 90% bend which is not amenable to percutaneous revascularization Severely diseased first diagonal artery which is not amenable nor appropriate for percutaneous intervention Small vessel disease in the distal LAD which is not amenable to percutaneous revascularization 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 Aspirin Plavix 2. LDL less than 55 to be achieved with high intensity statin 3. Supportive care 4. Medical management for the remaining coronary artery disease 5. Official echocardiogram in the morning 6. Continuous telemetry for at least 48 hours [facility] Disclaimer: The information contained in this section may have been updated after the patient was seen, as this information can be updated by other users. Medical History (Updated 11/21/24 @ 11:37 by Megan Black, ACCOUNT SUPPORT MANAGER) Hyperlipidemia Hypertension CAD (coronary artery disease) Afib ST elevation myocardial infarction (STEMI) of inferior wall Social History (Updated 11/20/24 @ 20:51 by Luana Perla RN) Smoking Status: Never smoker alcohol intake: never current occupational status: retired Travel in the last 8 weeks?: Inside the [place] household members: spouse housing: house Have you lived/traveled outside US in past 30 days?: No Contact w/someone who lives/traveled outside US past 30 days?: No Exposure to someone with infectious disease in past 14 days?: No Do you have a fever (greater than 100.4 F or 38 C)?: No Have you tested positive for COVID-19?: No Exposed to someone with COVID-19 in past 14 days?: No Do you have a sore throat?: No Do you have a cough?: No Do you have any weakness?: No Are you experiencing any nausea/vomitting?: No Do you have any diarrhea?: No Are you experiencing any unusual bleeding?: No Do you have any muscle aches/pain?: No Do you have any abdominal pain?: No Are you experiencing loss of taste or smell?: No Review of Systems Review of Systems Review of systems:: pertinent systems reviewed and negative unless documented below Constitutional Constitutional: Reports system reviewed and no additional complaints, except as documented Eyes Eyes: Reports system reviewed and no additional complaints, except as documented ENT Ears, Nose, Mouth, and Throat: Reports system reviewed and no additional complaints, except as documented *Cardiovascular Cardiovascular: Reports system reviewed and no additional complaints, except as documented, Reports chest pain, Reports chest pain at rest, Reports chest pain with activity, Denies dyspnea and Reports radiating jaw, neck or arm pain *Respiratory Respiratory: Reports system reviewed and no additional complaints, except as documented and Denies dyspnea *Gastrointestinal Gastrointestinal: Reports system reviewed and no additional complaints, except as documented *Genitourinary Genitourinary: Reports system reviewed and no additional complaints, except as documented *Musculoskeletal Musculoskeletal: Reports system reviewed and no additional complaints, except as documented Integumentary/Breasts Skin/Breast: Reports system reviewed and no additional complaints, except as documented *Neurologic Neurologic: Reports system reviewed and no additional complaints, except as documented Psychiatric Psychiatric: Reports system reviewed and no additional complaints, except as documented Endocrine Endocrine: Reports system reviewed and no additional complaints, except as documented Hematologic/Lymphatic Hematologic/Lymphatic: Reports system reviewed and no additional complaints, except as documented Allergic/Immunologic Allergic/Immunologic: Reports system reviewed and no additional complaints, except as documented Exam Data for Last 24 hours Vital signs and Labs for Last 24 Hours: Temp Pulse Resp BP Pulse Ox O2 Del Method 98 F 130 H 18 156/84 H 97 Room Air 11/21/24 08:00 11/21/24 08:00 11/21/24 08:00 11/21/24 08:00 11/21/24 08:00 11/21/24 11:00 Laboratory Results - last 24 hr 11/20/24 14:55: WBC 12.9 H, RBC 4.83, Hgb 15.1, Hct 43.9, MCV 90.9, MCH 31.3 H, MCHC 34.4, RDW 12.7, Plt Count 293, MPV 10.3, Neut % (Auto) 54.0, Lymph % (Auto) 34.0, [place] % (Auto) 9.4 H, Eos % (Auto) 1.7, Baso % (Auto) 0.5, Neut # (Auto) 7.0, Lymph # (Auto) 4.4, [place] # (Auto) 1.2 H, Eos # (Auto) 0.2, Baso # (Auto) 0.1, PT 11.0, INR 0.99, APTT 26.5, Sodium 134 L, Potassium 4.2, Chloride 100, Carbon Dioxide 31 H, Anion Gap 7.2, BUN 16, Creatinine 0.80, Estimated Creat Clear 97, Estimated GFR 94, Est GFR ( Amer) 113, Glucose 176 H, Calcium 9.2, Magnesium 1.9, Total Bilirubin 0.8, AST 31, ALT 24, Alkaline Phosphatase 55, Troponin I 0.10 H, NT-Pro-B Natriuret Pep 434, Total Protein 7.4, Albumin 4.2, Globulin 3.2, Albumin/Globulin Ratio 1.3, Lipase 202, HCV Ab CHANG w/Rflx PCR Qn Negative, HIV Ag/Ab Combo Qual Negative 11/20/24 17:48: Activated Clotting Time 227 H* 11/20/24 18:11: Activated Clotting Time 258 H* 11/20/24 19:23: Sodium 133 L, Potassium 4.0, Chloride 104, Carbon Dioxide 27, Anion Gap 6.0, BUN 14, Creatinine 0.70, Estimated Creat Clear 97, Estimated GFR 109, Est GFR ( Amer) 132, Glucose 97 D, Calcium 8.7, Troponin I 0.31 H 11/20/24 22:00: WBC 11.7 H, RBC 4.50 L, Hgb 13.6 L, Hct 40.5 L, MCV 90.0, MCH 30.2, MCHC 33.6, RDW 12.6, Plt Count 261, MPV 10.2, Neut % (Auto) 52.6, Lymph % (Auto) 35.1, [place] % (Auto) 9.1, Eos % (Auto) 2.1, Baso % (Auto) 0.5, Neut # (Auto) 6.2, Lymph # (Auto) 4.1, [place] # (Auto) 1.1 H, Eos # (Auto) 0.2, Baso # (Auto) 0.1 11/21/24 05:40: WBC 13.1 H, RBC 4.77, Hgb 14.5, Hct 43.2, MCV 90.6, MCH 30.4, MCHC 33.6, RDW 12.7, Plt Count 255, MPV 10.3, Neut % (Auto) 62.6, Lymph % (Auto) 23.6, [place] % (Auto) 10.9 H, Eos % (Auto) 2.0, Baso % (Auto) 0.5, Neut # (Auto) 8.2 H, Lymph # (Auto) 3.1, [place] # (Auto) 1.4 H, Eos # (Auto) 0.3, Baso # (Auto) 0.1, Sodium 136, Potassium 4.1, Chloride 106, Carbon Dioxide 26, Anion Gap 8.1, BUN 12, Creatinine 0.70, Estimated Creat Clear 93, Estimated GFR 109, Est GFR ( Amer) 132, Glucose 104 H, Hemoglobin A1c 5.7, Calcium 8.4, Triglycerides 279 H, Cholesterol 195, LDL Cholesterol Direct 97.82 L, VLDL Cholesterol 56 H, HDL Cholesterol 34 L, Cholesterol/HDL Ratio 5.7 H, Procalcitonin 0.053, TSH 3.74 I & O for Last 24 hours: Intake & Output 11/18/24 11/19/24 11/20/24 11/21/24 23:59 23:59 23:59 23:59 Intake Total 550 / 550 Output Total 525 / 525 450 / 450 Balance -525 / -285 100 / 100 Weight 244 lb 233 lb 3.2 oz Constitutional Constitutional: no acute distress and obese *Routine HEENT Exam Head: Present normocephalic and atraumatic ENT: Present mucous membranes moist *Routine Neck Exam Neck: Present supple, full ROM and normal carotid upstroke; Absent JVD, carotid bruit or lymphadenopathy *Routine Respiratory Exam Respiratory: Present CTA bilaterally, normal respiratory effort, able to speak in complete sentences and symmetric chest movement *Routine Cardiovascular Exam Cardiovascular: Present Normal S1, Normal S2 and irregularly irregular; Absent murmur or gallop *Routine Abdominal Exam Abdominal: Present soft and normoactive bowel sounds; Absent tenderness, distended or organomegaly *Routine Extremities Exam Extremities: Present full ROM, pulses intact and normal capillary refill; Absent cyanosis, clubbing or edema *Routine Skin Exam Skin: Present intact and warm; Absent erythema *Routine Neurological Exam Neurological: Present alert, oriented X3 and CN II-XII intact; Absent sensory deficit or motor deficit Routine Psychiatric Exam Psychiatric: Present normal affect Meds Home Medications and Allergies Home Medications ?Medication ?Instructions ?Recorded ?Confirmed ?Type amlodipine 5 mg tablet 5 mg PO DAILY 05/31/24 11/20/24 History metoprolol tartrate 100 mg tablet 100 mg PO BID 05/31/24 11/20/24 History aspirin 81 mg tablet,delayed 81 mg PO DAILY 06/05/24 11/20/24 History release (Adult Low Dose Aspirin) metformin 500 mg tablet 500 mg PO BID 11/21/24 11/21/24 History New Prescriptions to Start Prescriptions: Allergies Allergy/AdvReac Type Severity Reaction Status Date / Time No Known Allergies Allergy Verified 11/20/24 15:12 Assessment and Plan *Assessment and plan (1) ST elevation myocardial infarction (STEMI) of inferior wall: Status: Acute Category: Medical Code(s): I21.19 - ST elevation (STEMI) myocardial infarction involving other coronary artery of inferior wall (2) Afib: Status: Acute Qualifiers: Atrial fibrillation type: longstanding persistent Qualified Code(s): I48.11 - Longstanding persistent atrial fibrillation Category: Medical Code(s): I48.91 - Unspecified atrial fibrillation (3) CAD (coronary artery disease): Status: Acute Qualifiers: Associated angina: with unspecified form of angina Coronary Disease-Associated Artery/Lesion type: [place] artery [place] vs. transplanted heart: [place] heart Qualified Code(s): I25.119 - Atherosclerotic heart disease of [place] coronary artery with unspecified angina pectoris Category: Medical Code(s): I25.10 - Atherosclerotic heart disease of [place] coronary artery without angina pectoris (4) Hypertension: Status: Chronic Qualifiers: Hypertension type: primary hypertension Qualified Code(s): I10 - Essential (primary) hypertension Category: Medical Code(s): I10 - Essential (primary) hypertension (5) Hyperlipidemia: Status: Acute Qualifiers: Hyperlipidemia type: mixed hyperlipidemia Qualified Code(s): E78.2 - Mixed hyperlipidemia Category: Medical Code(s): E78.5 - Hyperlipidemia, unspecified Plan Plan: 1. The patient presented to the emergency department with chest pain. He was found to have an acute inferior STEMI. He was taken directly to the cardiac catheterization laboratory and had 2 stents placed to the right coronary artery. The patient does have persistent disease. He will be on dual antiplatelet therapy with Plavix and aspirin. 2. The patient denies any chest pain or pressure this morning. He states that he feels great. 3. Echocardiogram shows an EF of 50% and no significant valve disease. 4. The patient does have chronic atrial fibrillation. He is currently rate controlled. Will restart Metoprolol for HR control/STEMI/CAD. 5. The patient is not on long-term anticoagulation. He is status post left atrial appendage clip. 6. His blood pressure is well-controlled. Will start Losartan 50 mg daily due to STEMI and CAD. 7. His LDL goal is less than 55. His LDL is 97. He has been started on a statin. 8. The patient will need to be hospitalized 48 hours post STEMI. 9. Further recommendations will be made pending the patient's response to treatment. Thank you for the opportunity to help participate in the care of this patient. All recommendations and orders are per Dr. Levy.
[2024-11-21] MEDS: METOPROLOL TARTRATE 50MG TABLET 100 MG PO ×2 (14:06→20:09)
--- NOTE | 2024-11-21 15:54 | PC.NURSE ---
pt is A&Ox4. pt has not had any concerns or needs today. awaiting discharge home tomorrow. Call light is within reach.
[2024-11-21] MEDS: ATORVASTATIN 40MG TABLET 40 MG PO (20:09)
--- NOTE | 2024-11-21 20:39 | PC.NURSE ---
patient refused bath tonight, waiting til discharge. right radial dsg in place c/d/i. denies CP and SOA. no edema noted. refuses snack and provided fresh ice water. call mittal in place.
[2024-11-22] VITALS: BP 115/61; PULSE 60; PULSE 66; RESP 16; TEMP 36.9; O2SAT 97
[2024-11-22 04:00] VITALS: BP 119/68; PULSE 68; PULSE 70; RESP 16; TEMP 36.8; O2SAT 96; BMI 31.5
--- NOTE | 2024-11-22 06:12 | PC.NURSE ---
ice water passed, patient room was cleaned, trash and linen was emptied, bedside table was cleaned and wiped down with bleach wipe, call light was in reach.
[2024-11-22 08:00] VITALS: BP 113/66; PULSE 70; PULSE 82; RESP 18; TEMP 36.9; O2SAT 97
[2024-11-22] MEDS: CLOPIDOGREL 75MG TAB 75 MG PO (08:43)
[2024-11-22] MEDS: ASPIRIN EC 81MG TABLET 81 MG PO (08:43)
[2024-11-22] MEDS: METOPROLOL TARTRATE 50MG TABLET 100 MG PO (08:43)
[2024-11-22] MEDS: IRBESARTAN 75MG TABLET 75 MG PO (08:43)
[2024-11-22 09:11] LABS: Basophils % 0.3 % (0.1-2.0); Eosinophils # 0.2 Kmm3 (0.0-0.4); Eosinophils % 1.4 % (0.1-12.0); Hematocrit 44.3 % (42.0-52.0); Hemoglobin 15.1 g/dL (14.1-18.0); Immature Granulocytes # 0.04 10^3uL; Immature Granulocytes % 0.3 %; Lymphocytes # 3.7 K/mm3 (0.7-4.5); Lymphocytes % 28.7 % (10-50); Mean Corpuscular HGB Conc 34.1 g/dL (31.8-35.4); Mean Platelet Volume 10.1 fl (7.4-10.4); Monocytes # 1.4 K/mm3 (0.1-1.0); Monocytes % 10.6 % (1.7-9.3); Neutrophils # 7.6 K/mm3 (1.8-7.8); Neutrophils % 58.7 % (37.0-80.0); Nucleated Red Blood Cells # 0 10^3/uL; Nucleated Red Blood Cells % 0 %; Platelet Count 291 K/mm3 (142-424); Red Blood Count 4.87 M/mm3 (4.60-6.20); Red Cell Distribution Width 12.9 % (11.5-17.5); Red Cell Distribution Width-SD 42.3 fL
[2024-11-22 09:19] LABS: Blood Urea Nitrogen 13 mg/dl (9-20); Calcium 9.2 mg/dl (8.4-10.2); Carbon Dioxide 27 mmol/L (22.0-30.0); Creatinine Clearance Estimated 92 mL/min (50-200); Estimated Glomerular Filt Rate 94 ml/min (>60); GFR (African American) 113 ML/MIN (>60); Glucose 174 mg/dl (74-100)
[2024-11-22 09:25] LABS: Anion Gap 6.1 mEq/L (5-15); Chloride 105 mmol/L (98-107); Potassium 4.1 mmoL/L (3.5-5.1); Sodium 134 mmol/L (136-145)
--- NOTE | 2024-11-22 09:45 | P.DS_ITS ---
<Statement entered by Bucky Dennis MD - 11/28/24 22:31> Evaluated by the patient and agree with plan of care as outlined by the PERIODICALS LIBRARY ASSISTANT. General Admission date:: 11/20/24 Discharge date: 11/22/24 HPI HPI HPI: This is a 79-year-old male who has a past medical history significant for atrial fibrillation, hypertension, impaired glucose, and peripheral neuropathy who presents with a chief complaint of chest pain. Due to patient's symptoms, he presented to the emergency room for evaluation. While in emergency room, patient had an EKG that was consistent with a STEMI in the inferior. Due to these findings, patient was transition to the [facility] for left heart cath. Patient did receive 2 drug-eluting stents to the right coronary artery. Post cath, patient has been admitted for further management. During my evaluation of the patient, patient states his chest pain started approximately 3 days ago. Patient states his chest pain was with out activity. He also mentions that his chest pain is midsternal and radiates to both shoulders and is intermittent. He voices that his chest pain waxes and wanes and it was without any diaphoresis, nausea, vomiting, or shortness of air. Post cath, patient states his chest pain has resolved. Currently, he is denying any lightheadedness, dizziness, fever, chills, rigors, PND, orthopnea, nausea, vomiting, shortness of breath, dyspnea, or diarrhea. Patient is currently in a sinus bradycardia. Additional pertinent labs obtained include white blood cell count of 12.9, sodium 134, carbon oxide of 31, blood glucose 176, and troponin of 0.10. Hospital Course Hospital Course Hospital Course: Mr. Lemos is a 79-year-old male who was admitted from the [facility] after a STEMI. He is now s/p left heart cath with stent placement. Patient admitted to the hospital for 48-hour monitoring post cath. Close cardiology follow-up postdischarge. Appointment scheduled. #STEMI- In the inferior: #Coronary artery disease: ? Patient feels well this morning. No complaints. Continues to deny chest marilyn n, shortness of breath. - Patient is status post drug-eluting stents to the right coronary artery x 2 - Patient has been prescribed dual antiplatelet therapy (81 mg of aspirin and 75 mg of Plavix) more than likely patient will require at least 6 months of therapy. - LVEF is 50%. Recommendation of a cardiac MRI outpatient per cardiology. ?Triglycerides elevated at 279, total cholesterol 195. #Atrial fibrillation with controlled ventricular response ? Patient is on telemetry, A-fib, patient has chronic A-fib sees Dr. Jones for management. Prior to admission he was not on long-term anticoagulation, he is status post left atrial appendage clip. - Continue at discharge metoprolol 100 mg twice daily ? Per cardiology, will start losartan 50 mg daily due to STEMI and CAD. Before admission for STEMI patient took amlodipine 5 mg daily, we will stop this at discharge. #Leukocytosis - Currently there are no active signs of infection, white count is 13.0. Remaining lab work continues to be unremarkable. - Patient has remained afebrile. - Procalcitonin, 0.053. Total time spent on discharge 33 minutes in counseling, documentation, chart review, and direct care with patient. Exam Data for Last 24 hours Vital signs and Labs for Last 24 Hours: Temp Pulse Resp BP Pulse Ox O2 Del Method 98.4 F 82 18 113/66 97 Room Air 11/22/24 08:00 11/22/24 08:00 11/22/24 08:00 11/22/24 08:00 11/22/24 08:00 11/22/24 09:00 Laboratory Results - last 24 hr 11/22/24 09:01: WBC 13.0 H, RBC 4.87, Hgb 15.1, Hct 44.3, MCV 91.0, MCH 31.0, MC HC 34.1, RDW 12.9, Plt Count 291, MPV 10.1, Neut % (Auto) 58.7, Lymph % (Auto) 28.7, [place] % (Auto) 10.6 H, Eos % (Auto) 1.4, Baso % (Auto) 0.3, Neut # (Auto) 7.6, Lymph # (Auto) 3.7, [place] # (Auto) 1.4 H, Eos # (Auto) 0.2, Baso # (Auto) 0.0, Sodium 134 L, Potassium 4.1, Chloride 105, Carbon Dioxide 27, Anion Gap 6.1, BUN 13, Creatinine 0.80, Estimated Creat Clear 92, Estimated GFR 94, Est GFR ( Amer) 113, Glucose 174 H, Calcium 9.2, Magnesium 2.0 I & O for Last 24 hours: Intake & Output 11/19/24 11/20/24 11/21/24 11/22/24 23:59 23:59 23:59 23:59 Intake Total 1660 / 1900 240 / 240 Output Total 525 / 525 2677 / 3202 1875 / 1875 Balance -525 / -285 -1017 / -1302 -1635 / -1635 Weight 110.677 kg 105.778 kg 105.687 kg Constitutional Constitutional: no acute distress and obese *Routine HEENT Exam Head: Present normocephalic and atraumatic ENT: Present mucous membranes moist *Routine Neck Exam Neck: Present supple, full ROM and normal carotid upstroke; Absent JVD, carotid bruit or lymphadenopathy *Routine Respiratory Exam Respiratory: Present CTA bilaterally, normal respiratory effort, able to speak in complete sentences and symmetric chest movement *Routine Cardiovascular Exam Cardiovascular: Present Normal S1, Normal S2 and irregularly irregular; Absent murmur or gallop *Routine Abdominal Exam Abdominal: Present soft and normoactive bowel sounds; Absent tenderness, distended or organomegaly *Routine Extremities Exam Extremities: Present full ROM, pulses intact and normal capillary refill; Absent cyanosis, clubbing or edema *Routine Skin Exam Skin: Present intact and warm; Absent erythema *Routine Neurological Exam Neurological: Present alert, oriented X3 and CN II-XII intact; Absent sensory deficit or motor deficit Routine Psychiatric Exam Psychiatric: Present normal affect Results Data Completed and Pending Labs on day of discharge: Labs from last 24 hours 11/22/24 09:01 WBC 13.0 H RBC 4.87 Hgb 15.1 Hct 44.3 MCV 91.0 MCH 31.0 MCHC 34.1 RDW 12.9 Plt Count 291 MPV 10.1 Neut % (Auto) 58.7 Lymph % (Auto) 28.7 [place] % (Auto) 10.6 H Eos % (Auto) 1.4 Baso % (Auto) 0.3 Neut # (Auto) 7.6 Lymph # (Auto) 3.7 [place] # (Auto) 1.4 H Eos # (Auto) 0.2 Baso # (Auto) 0.0 Sodium 134 L Potassium 4.1 Chloride 105 Carbon Dioxide 27 Anion Gap 6.1 BUN 13 Creatinine 0.80 Estimated Creat Clear 92 Estimated GFR 94 Est GFR ( Amer) 113 Glucose 174 H Calcium 9.2 Magnesium 2.0 DS: Diagnosis Discharge Diagnosis (1) ST elevation (STEMI) myocardial infarction: Status: Acute Code(s): I21.3 - ST elevation (STEMI) myocardial infarction of unspecified site Qualifiers: Involved coronary artery: right coronary artery Qualified Code(s): I21.11 - ST elevation (STEMI) myocardial infarction involving right coronary artery (2) CAD (coronary artery disease): Status: Acute Code(s): I25.10 - Atherosclerotic heart disease of [place] coronary artery without angina pectoris Qualifiers: Associated angina: with unspecified form of angina Coronary Disease- Associated Artery/Lesion type: [place] artery [place] vs. transplanted heart: [place] heart Qualified Code(s): I25.119 - Atherosclerotic heart disease of [place] coronary artery with unspecified angina pectoris (3) Chronic atrial fibrillation: Status: Chronic Code(s): I48.20 - Chronic atrial fibrillation, unspecified (4) Status post left heart catheterization (LHC): Status: Acute Code(s): Z98.890 - Other specified postprocedural states (5) Afib: Status: Acute Code(s): I48.91 - Unspecified atrial fibrillation Qualifiers: Atrial fibrillation type: longstanding persistent Qualified Code(s): I48.11 - Longstanding persistent atrial fibrillation (6) Leukocytosis: Status: Acute Code(s): D72.829 - Elevated white blood cell count, unspecified Qualifiers: Leukocytosis type: unspecified Qualified Code(s): D72.829 - Elevated white blood cell count, unspecified Meds Home Medications and Allergies Home Medications ?Medication ?Instructions ?Recorded ?Confirmed ?Type metoprolol tartrate 100 mg tablet 100 mg PO BID 11/20/24 History aspirin 81 mg tablet,delayed 81 mg PO DAILY 06/05/24 0 11/20/24 History release (Adult Low Dose Aspirin) metformin 500 mg tablet 500 mg PO BID 11/21/2411/21 History atorvastatin 40 mg tablet 40 mg PO HS 30 days #30 tabs 11/22/24 Rx clopidogrel 75 mg tablet 75 mg PO DAILY 30 days #30 t abs 11/22/24 Rx losartan 50 mg tablet 50 mg PO DAILY #30 tabs 11/04 02/28 Rx pantoprazole 40 mg tablet,delayed 40 mg PO DAILY #30 t abs 11/22/24 Rx release (Protonix) New Prescriptions to Start Prescriptions: atorvastatin Natali Morton clopidogrel Natali Morton losartan Praveen,Natali pantoprazole [Protonix] PraveenNatali Allergies Allergy/AdvReac Type Severity Reaction Status Date / Time No Known Allergies Allergy Verified 11/20/24 15:12 Discharge Plan Disposition Patient Disposition: Home, Self-Care Condition: Fair Discharge Order Discharge Orders: Discharge Order (Routine); Ordered 11/22/24 Ordered By: Natali Morton Follow up Plan Follow up with: Gus Dee PA [Physician Chassis Driver, Cardiology] - 11/26/24 1:45 pm Sánchez Torres MD [Primary Care Provider, Medical] - 11/28/24 11:45 am Prescriptions/Medication Reconciliation: New clopidogrel 75 mg Tablet 75 mg PO DAILY 30 Days Qty: 30 3RF losartan 50 mg tablet 50 mg PO DAILY Qty: 30 3RF atorvastatin 40 mg Tablet 40 mg PO HS 30 Days Qty: 30 3RF pantoprazole [Protonix] 40 mg tablet,delayed release (DR/EC) 40 mg PO DAILY Qty: 30 0RF Continued aspirin [Adult Low Dose Aspirin] 81 mg tablet,delayed release (DR/EC) 81 mg PO DAILY metformin 500 mg tablet 500 mg PO BID Patient Comments: TAKE 1 TABLET 2 TIMES EACH DAY WITH MEALS metoprolol tartrate 100 mg tablet 100 mg PO BID Patient Comments: TAKE 1 TABLET BY MOUTH TWICE DAILY Discontinued amlodipine 5 mg tablet 5 mg PO DAILY Patient Comments: TAKE 1 TABLET BY MOUTH DAILY Problem Reconciliation Problems Reviewed?: Yes Patient Discharge Instructions ACTIVITY: Continue current activity DIET: continue same diet Patient Instructions: DI for Heart Attack, Cardiac Catheterization, DI for Surgical Site Infection, Post TransRadial Cath Discharge Instructions Print Language: Setswana Providers Primary Care Provider: Sánchez Torres Admit Provider: Frantz Lemon Attending Provider: Frantz Lemon
--- NOTE | 2024-11-22 11:20 | P.PN_ITS ---
Subjective Subjective Date: 11/22/24 Time: 10:00 Principal diagnosis: Inferior STEMI Interval history: This is a 79-year-old white gentleman who presented to the emergency department with complaints of chest pain. The patient was found to have an inferior STEMI and underwent left cardiac catheterization with 2 stents placed to the right coronary artery. He is on aspirin and Plavix for dual antiplatelet therapy. This morning he denies any chest pain or pressure. He denies any shortness of breath or edema. He denies any fever, chills, nausea, vomiting, diarrhea, PND orthopnea. Exam Data for Last 24 hours Vital signs and Labs for Last 24 Hours: Temp Pulse Resp BP Pulse Ox O2 Del Method 98.4 F 82 18 113/66 97 Room Air 11/22/24 08:00 11/22/24 08:00 11/22/24 08:00 11/22/24 08:00 11/22/24 08:00 11/22/24 11:00 Laboratory Results - last 24 hr 11/22/24 09:01: WBC 13.0 H, RBC 4.87, Hgb 15.1, Hct 44.3, MCV 91.0, MCH 31.0, MCHC 34.1, RDW 12.9, Plt Count 291, MPV 10.1, Neut % (Auto) 58.7, Lymph % (Auto) 28.7, [place] % (Auto) 10.6 H, Eos % (Auto) 1.4, Baso % (Auto) 0.3, Neut # (Auto) 7.6, Lymph # (Auto) 3.7, [place] # (Auto) 1.4 H, Eos # (Auto) 0.2, Baso # (Auto) 0.0, Sodium 134 L, Potassium 4.1, Chloride 105, Carbon Dioxide 27, Anion Gap 6.1, BUN 13, Creatinine 0.80, Estimated Creat Clear 92, Estimated GFR 94, Est GFR ( Amer) 113, Glucose 174 H, Calcium 9.2, Magnesium 2.0 I & O for Last 24 hours: Intake & Output 11/19/24 11/20/24 11/21/24 11/22/24 23:59 23:59 23:59 23:59 Intake Total 1660 / 1900 240 / 240 Output Total 525 / 525 2677 / 3202 1875 / 1875 Balance -525 / -285 -1017 / -1302 -1635 / -1635 Weight 244 lb 233 lb 3.2 oz 233 lb Constitutional Constitutional: no acute distress and obese *Routine HEENT Exam Head: Present normocephalic and atraumatic ENT: Present mucous membranes moist *Routine Neck Exam Neck: Present supple, full ROM and normal carotid upstroke; Absent JVD, carotid bruit or lymphadenopathy *Routine Respiratory Exam Respiratory: Present CTA bilaterally, normal respiratory effort, able to speak in complete sentences and symmetric chest movement *Routine Cardiovascular Exam Cardiovascular: Present Normal S1, Normal S2 and irregularly irregular; Absent murmur or gallop *Routine Abdominal Exam Abdominal: Present soft and normoactive bowel sounds; Absent tenderness, distended or organomegaly *Routine Extremities Exam Extremities: Present full ROM, pulses intact and normal capillary refill; Absent cyanosis, clubbing or edema *Routine Skin Exam Skin: Present intact and warm; Absent erythema *Routine Neurological Exam Neurological: Present alert, oriented X3 and CN II-XII intact; Absent sensory deficit or motor deficit Routine Psychiatric Exam Psychiatric: Present normal affect Progress Note: A&P Assessment and plan (1) ST elevation myocardial infarction (STEMI) of inferior wall: Status: Acute (2) CAD (coronary artery disease): Status: Acute (3) Chronic atrial fibrillation: Status: Chronic (4) Status post left heart catheterization (LHC): Status: Acute (5) Afib: Status: Acute (6) Hyperlipidemia: Status: Acute (7) Hypertension: Status: Chronic (8) Abnormal echocardiogram: Status: Acute Assessment and Plan Assessment and Plan for All Diagnoses:: Plan: 1. The patient presented to the emergency department with chest pain. He was found to have an acute inferior STEMI. He was taken directly to the cardiac catheterization laboratory and had 2 stents placed to the right coronary artery. The patient does have persistent disease. He will be on dual antiplatelet therapy with Plavix and aspirin. 2. Echocardiogram shows an EF of 50% and no significant valve disease. There is LV wall thickness. He would benefit from cardiac MRI on an outpatient basis once he is 6 weeks out from stenting for further evaluation of the LV wall thickness. 3. The patient does have chronic atrial fibrillation. He is currently rate controlled. On metoprolol. 4. The patient is not on long-term anticoagulation. He is status post left atrial appendage clip. 5. His blood pressure is well-controlled. Continue losartan and metoprolol. 6. His LDL goal is less than 55. His LDL is 97. He has been started on a statin. 7. The patient will need to be hospitalized 48 hours post STEMI.He can be discharged tonight at 6:30 PM as long as he remains stable.The patient will need to follow-up in cardiology clinic next week. 8. The patient can be discharged on the following cardiac medications: Aspirin 81 mg daily, atorvastatin 40 mg p.o. nightly, Plavix 75 mg daily, losartan 50 mg daily, metoprolol tartrate 100 mg p.o. twice daily, Protonix 40 mg daily. Thank you for the opportunity to help participate in the care of this patient. All recommendations and orders are per Dr. Levy.
[2024-11-22 11:44] VITALS: BP 109/65; PULSE 67; RESP 18; TEMP 36.6; O2SAT 97
[2024-11-22 12:00] VITALS: PULSE 50
[2024-11-22 16:00] VITALS: BP 122/75; PULSE 67; RESP 18; TEMP 36.7; O2SAT 98
--- NOTE | 2024-11-23 10:04 | SW/DCPLANNER ---
Spoke with patient on the phone. Patient stated that he is doing good. Patient stated that he is very appreciative of the care and service he received here at the hospital. Patient stated that he is aware of his upcoming appointments. Patient stated that he done the meds to bed and was able to get his new medicine from clinic pharmacy. Patient stated that he has no concerns or questions at this time. Burton Cartagena
== END 2024-11-22 18:30 | disposition home or self-care (01) | DRG 322 ==
LOC: ER 17:56 → CATHLAB 17:56 → 2ND 18:46 → ICU 19:08 → 2ND 19:10
PROVIDERS: Internal Medicine; Nurse Practitioner Family; Admitting Provider Internal Medicine Adolescent Medicine; Emergency Provider Emergency Medicine; PCP Internal Medicine; Visit Provider Internal Medicine Adolescent Medicine
PROC: 4A023N7 Measurement of Cardiac Sampling and Pressure, Left Heart, Percutaneous Approach (ICD-10-PCS; CPT 93452; principal; 2024-11-20 17:15)
DX: I21.19 ST elevation (STEMI) myocardial infarction involving other coronary artery of inferior wall (principal); I48.11 Longstanding persistent atrial fibrillation; I25.10 Atherosclerotic heart disease of native coronary artery without angina pectoris; E78.2 Mixed hyperlipidemia; I10 Essential (primary) hypertension; D72.829 Elevated white blood cell count, unspecified; Z79.82 Long term (current) use of aspirin
CPT/HCPCS: 36415; 71046; 80048; 80053; 80061; 83036; 83690; 83735; 83880; 84145; 84443; 84484; 85025; 85347; 85610; 85730; 86803; 87389; 93005; 93306; 99152; 99153; C1725; C1769; C1874; J1200; J1450; J1644; J1885; J2003; J2250; J3010; J7040; Q9967

== ENCOUNTER 2024-12-04 13:48 | Outpatient (RCR) | payer BC, SELFPAY | END 2025-01-31 08:00 | disposition home or self-care (01) | LOC: CR 13:48 | PROVIDERS: Visit Provider Internal Medicine | DX: Z48.812 Encounter for surgical aftercare following surgery on the circulatory system (principal); Z95.5 Presence of coronary angioplasty implant and graft | CPT/HCPCS: 93798 ==

== ENCOUNTER 2025-01-01 08:08 | Emergency (ER) | payer BC, SELFPAY ==
--- NOTE | 2025-01-01 08:13 | PC.NURSE ---
RC mccain called Lab for Type and screen
[2025-01-01 08:15] VITALS: BP 149/79; PULSE 76; RESP 18; TEMP 36.6; O2SAT 99; BMI 32.1
--- NOTE | 2025-01-01 08:21 | ECG_ITS ---
APPROVED REPORT Exam: Resting ECG HR:77 bpm ECG Measurements Heart Rate 77 AXES QRSd 74 QRS 20 QT 389 T 61 QTc 421 Conclusion ATRIAL FIBRILLATION POSSIBLE RIGHT VENTRICULAR CONDUCTION DELAY [RSR (QR) IN V1/V2] ABNORMAL RHYTHM ECG UNCONFIRMED REPORT Electronically signed by : CAIN MULLINS, 01/02/2025 05:57:57
--- OUTSIDE RECORDS SUMMARY | 2025-01-01 08:24 | XMS_ITS | Clinical Summary ---
Author Organization [facility] Address [facility] [place] [id number] Care Team Providers Care Mycology Teacher Name Role Phone Sánchez Torres MD Primary Care Provider [phone] Allergies No known active allergies Medications metoprolol [...] or (1 - 1-dose 75+ series) 2022 [id number] Vaccine ( - season) 2024 02/27/2022, 03/05/2021, 07/11/2020, Additional history exists [facility]-Influenza Vaccine (#1) 2025 02/27/2022 [facility]Y-Obesity Intervention Completed 022, 04/19/2022, [...] age to complete this [place] [address] [facility] Care Teams Mycology Teacher Relationship Specialty Start Date End Date Sánchez Torres MD [address] [facility] [address] [place] [address] PCP - General 02/15/22
--- OUTSIDE RECORDS SUMMARY | 2025-01-01 08:24 | XMS_ITS | Clinical Summary ---
Author Organization [facility] Address [address] [place] [address] Care Team Providers Care District Ranger Name Role Phone Sánchez Torres MD Primary Care Provider [phone] Allergies No known active allergies Medications Multiple Vitamins-Minera ls (CENTRUM ULTRA MENS PO) Take 1 tablet by mouth Daily. Active aspirin 81 MG EC tablet Take 1 tablet by mouth Daily. Active metFORMIN (GLUCOPHAGE) 500 MG tablet TAKE ONE TABLET BY MOUTH TWICE DAILY FOR sugar --TAKE WITH FOOD-- 2 Active naproxen (NAPROSYN) 500 MG tablet TAKE 1 TABLET 2 TIMES EACH DAY WITH MEALS 3 Active amLODIPine (NORVASC) 5 MG tablet Take 1 tablet by mouth Daily. 90 tablet 2 5 Active metoprolol tartrate (LOPRESSOR) 100 MG tablet Take 1 tablet by mouth 2 (Two) Times a Day. 180 tablet 2 5 Active metoprolol tartrate (LOPRESSOR) 100 MG tablet TAKE 1 TABLET BY MOUTH TWICE DAILY 180 tablet 2 4 12/11/19 25 Discontinu ed(Reorder ) Active Problems Problem Noted Date Diagnosed Date Atrial flutter 12/19/2017 Atrial fibrillation 12/02/2017 Overview (12/02/2017): Added automatically from request for surgery [id number] Obesity due to excess calories 10/06/2017 Atrial fibrillation and flutter Overview (02/19/2016): a. Initiation of digoxin and metoprolol therapy, 04/19/2008, Dr. Torres. b. With 55%, mild PI, mild TR and mild MR. c. Cardiolite nuclear study, 06/04/2008: Exercise duration 7 minutes and 22 seconds with no evidence of inducible ischemia. Normal LV systolic function and wall motion. d. SOCO cardioversion, 12/25/2009, Dr. Addison: No findings of thrombus, successful cardioversion to sinus rhythm with re-initiation of sotalol 40 mg b.i.d. e. SOCO cardioversion on 02/10/2010, Dr. Addison: Successful conversion to sinus rhythm with increase of sotalol to 80 mg b.i.d. f. CHADS score of 0. g. SOCO and external cardioversion to normal sinus rhythm, 05/22/2010. h. Pulmonary vein isolation procedure, 08/04/2010. i. External cardioversion to normal sinus rhythm, 01/06/2011. j. EKG, 02/02/2011, showing atrial fibrillation. k. Pulmonary vein isolation procedure, ablation of a right atrial tachycardia and premature ventricular contractions, 05/11/2011. l. External cardioversion to normal sinus rhythm, 05/01/2012. m. SOCO/external cardioversion to normal sinus rhythm with SOCO revealing EF 50% to 55%, left atrium mild to moderately dilated, no thrombus visualized in the left atrial appendage, 07/31/2013 n. Asymptomatic atrial flutter, 09/11/2013. o. 06/25/2015: A 12-lead EKG demonstrates normal sinus rhythm. Ventricular rate of 67 beats per minute. Normal axis and intervals. Hypertension Encounters Date Type Department Care Team Description 12/10/2024 Refill [facility] [address] [facility] [address] [place] [address] Wagner Jones MD Med Refill from Last 3 Months Immunizations Immunization Administration Dates Next Due Pneumococcal Polysaccharide (PPSV23) 01/03/2018 Family History Medical History Relation Name Comments Coronary artery disease Father Skin cancer Father Stroke Father Heart failure Mother Relation Name Status Comments Father Mother Social History Tobacco Use Types Packs/Day Years Used Date Smoking Tobacco: Never Smokeless Tobacco: Never Alcohol Use Standard Drinks/Week Comments No 0 (1 standard drink = 0.6 oz pur e alcohol) Sex and Gender Information Value Date Recorded Sex Assigned at Not on file Legal Sex Male 1:08 PM EDT Gender Identity Not on file Sexual Orientation Not on file Occupation Industry Job Start Date Job End Date retired Not on file Not on file Not on file Not on file Not on file Not on file Not on file Last Filed Vital Signs Vital Sign Reading Time Taken Comments Blood Pressure 134/76 04/25/2024 11:00 AM EST Pulse 65 04/25/2024 11:00 AM EST Temperature 36.2 C (97.1 F) 05/07/2020 9:49 AM EST Respiratory Rate 16 01/03/2018 12:00 PM EDT Oxygen Saturation 99% 04/25/2024 11:00 AM EST Inhaled Oxygen Concentration - - Weight 111 kg (244 lb 6.4 oz) 04/25/2024 11:00 A M EST Height 182.9 cm (6') 04/25/2024 11:00 AM EST Body Mass Index 33.15 04/25/2024 11:00 AM EST Plan of Treatment Upcoming Encounters Date Type Department Care Team (Late st Contact Info) Description 05/08/2025 10:30 AM EST Office Visit [facility] [address] [facility] [address] [place] [address] Wagner Jones MD [address] [facility] [address] [place] [address] Scheduled Procedures Name Priority Associated Diagnoses Date/Ti me LEFT ATRIAL APPENDAGE OCCLUSION Persistent atrial fibrillation Health Maintenance Due Date Last Done Comments DIABETIC EYE EXAM 1957 DIABETIC FOOT EXAM 1957 URINE MICROALBUMIN-CREATININ E RATIO (uACR) 1957 TDAP/TD VACCINES (1 - Tdap) 1966 COLOGUARD 1992 COLON CANCER SCREENING 5 YEA R SIGMOIDOSCOPY 1992 COLONOSCOPY 1992 [address] CANCER SCREENING 1992 CT COLONOGRAPHY 1992 FECAL OCCULT BLOOD TEST 1992 FIT Testing (1 year) 1992 ZOSTER VACCINE (1 of 2) 1997 ANNUAL PHYSICAL 10/27/2016 HEPATITIS C SCREENING 10/27/2016 HEMOGLOBIN A1C 06/20/2018 12/18/2017, 07/08, 10/14/2013, Additional history exists Pneumococcal Vaccine 50+ (2 of 2 - PCV) 01/03/2019 01/03/2018 RSV Vaccine - Adults (1 - 1- dose 75+ series) 2022 COVID-19 Vaccine (2023-2 5 season) 2024 03/22/2024, 04/14/2023, 02/27/2022, Additional history exists INFLUENZA VACCINE 03/06/2025 03/22/2024, , 02/27/2022 Medical Devices Implanted Type Area Voice Data Communications Engineer Device Identifier Shelf Expiration Date Model / Serial / Lot Appl Clip Savana Atriclip Pro2 40mm - [id number] Implanted:Qty: 1 on 01/02/2018 by Bucky Holland MD at [facility] Implant Heart ATRICURE 01/05/2020 [id number] / / [id number] Procedures Procedure Name Priority Date/Time Associated Diagnosis Comments HEMOGLOBIN A1C Routine 12/18/2017 12:05 PM EDT Atrial flutter, unspecified type from Last 3 Months or Most Recently Relevant to Health Maintenance Results * (ABNORMAL) Hemoglobin A1c (12/18/2017 12:05 PM EDT) Hemoglobin A1C 6.30(H) 4.80 - 5.60 % 12/18/2017 1:42 PM EDT [facility] Blood Venipuncture / Unknown 12/18/2017 12:05 PM EDT 12/18/2017 12:48 PM EDT Narrative [facility] - 12/18/2017 1:42 PM EDT The [place] [employer] recommends maintenance of Hemoglobin A1C at 7.0% or lower. Goals for Hemoglobin A1C reduction may need to be modified if hypoglycemia is a problem. us Becky Botello PA-C LAB BLOOD ORDERABLES Final R esult [facility]
[address] [place] [address], from Last 3 Months or Most Recently Relevant to Health Maintenance Insurance [employer] MEDICARE A ONLY Advance Directives * CPR (Attempt to Resuscitate) (Latest Code Status on File) Date Activated Date Inactivated Comments 01/02/2018 10:29 AM 01/03/2018 4:22 PM Question Answer Comments Code Status (Patient has no pulse and is not breathing): CPR (Attempt to Resuscitate) Medical Interventions (Patie nt has pulse or is breathing): Full Level Of Support Discussed With: Patient Care Teams District Ranger Relationship Specialty Start Date End Date Sánchez Torres MD [address] [facility] [address] [place] [address] PCP - General 06/25/15
--- OUTSIDE RECORDS SUMMARY | 2025-01-01 08:24 | XMS_ITS | Encounter Summary ---
Author Organization [facility] Address [address] [place] [id number] Care Team Providers Care Extrusion Operator Name Role Phone Sánchez Torres MD Primary Care Provider [phone] Reason for Visit * Reason Onset Date Comments Med Refill 12/10/2024 Encounter Details Date Type Department Care Team (Late st Contact Info) Description 12/10/2024 Refill [facility] [address] [place] [address] Wagner Jones MD [address] [facility] [address] [place] [id number] Med Refill Social History Tobacco Use Types Packs/Day Years [...] file Not on file Not on file documented as of this encounter Plan of Treatment Upcoming Encounters Date Type Department Care Team (Late Contact Info) Description 05/08/2025 10:30 AM EST Office Visit [facility] [address] [place] [address] Wagner Jones MD [address] [facility] [address] [place] [address] Scheduled Procedures Name Priority Associated Diagnoses Date/Ti me LEFT ATRIAL APPENDAGE OCCLUSION Persistent atrial fibrillation documented as of this encounter Visit Diagnoses Not on filedocumented in this encounter Care Teams Extrusion Operator Relationship Specialty Start Date End Date Sánchez Torres MD [address] [facility] [address] [place] [address] PCP - General 06/25/15 documented as of this encounter
--- NOTE | 2025-01-01 08:25 | CT_ITS ---
FINAL REPORT TECHNIQUE: Axial imaging of the chest is obtained after the administration of contrast. 3-D MIP reformatted images were also obtained and reviewed per PE protocol. This study was performed with techniques to keep radiation doses as low as reasonably achievable (ALARA). Individualized dose reduction techniques using automated exposure control or adjustment of mA and/or kV according to the patient's size were employed. CLINICAL HISTORY: Hemoptysis COMPARISON: None FINDINGS: The pulmonary arteries are well filled. There is no evidence of pulmonary embolus. There is no aortic dissection. Heart size is mildly enlarged. There is no mediastinal, hilar, or axillary lymphadenopathy. The lungs are clear. There is no pleural or pericardial effusion. There is a small hiatal hernia, with distal esophageal wall thickening. Limited evaluation of the upper abdomen is without acute abnormality. No acute osseous abnormality. IMPRESSION: No evidence of pulmonary embolism or aortic dissection. A hiatal hernia is present, with distal esophageal wall thickening. This may represent esophagitis, although neoplasm is not excluded. Recommend endoscopy for further evaluation. Reviewed, Interpreted and Dictated by Gabriela Oliva MD Transcribed by Luisa Salcedo Authenticated and [facility]
--- NOTE | 2025-01-01 08:26 | HMH.EDGENADL ---
Discharge Plan Disposition Patient Disposition: Home, Self-Care Prescriptions Prescriptions: No Action aspirin [Adult Low Dose Aspirin] 81 mg tablet,delayed release (DR/EC) 81 mg PO DAILY famotidine 40 mg tablet 40 mg PO BID Qty: 180 1RF nitroglycerin 0.4 mg tablet, sublingual 0.4 mg sublingual Q5-15M PRN (Reason: chest pain) Qty: 30 0RF Rx Instructions: do not exceed 3 doses per episode metformin 500 mg tablet 500 mg PO BID Patient Comments: TAKE 1 TABLET 2 TIMES EACH DAY WITH MEALS clopidogrel 75 mg Tablet 75 mg PO DAILY 30 Days Qty: 30 3RF losartan 50 mg tablet 50 mg PO DAILY Qty: 30 3RF atorvastatin 40 mg Tablet 40 mg PO HS 30 Days Qty: 30 3RF metoprolol tartrate 100 mg tablet 100 mg PO BID Patient Comments: TAKE 1 TABLET BY MOUTH TWICE DAILY Referrals Follow up/Referrals: Sánchez Torres MD [Primary Care Provider, Medical] - See instructions Activity Restrictions/Add. Instructions Additional Instructions/Restrictions: Do not take your aspirin or clopidogrel tonight as this may be contributing to your coughing up blood. I encourage you to follow-up with your primary care physician tomorrow for reassessment to ensure that symptoms are improving and further instructions on when to restart your blood thinners. Your CT scan today showed no evidence of a blood clot or any other significant findings. If you develop any new or worsening symptoms, such as worsening cough, increased amount of blood in your cough, difficulty breathing, chest pain, or if you become concerned for your health for any reason, return to the emergency department for evaluation. Clinical Impressions Clinical Impression: Hemoptysis Instructions Patient Instructions: Cough Print Language Print Language: Senegalese Discharge ED Provider: Gucci Webb Adult HPI General Chief complaint: Cough Stated complaint: post op 12/20 vomitting up blood Time Seen by Provider: 01/01/25 08:17 Mode of Arrival: Ambulatory Source of Information: Patient and Spouse Description of Symptoms (Recalled from ER Triage Doc. by RN): Patient presents to ED for coughing up blood that started this morning. Patient had recent stent placement on 12/20. Denies pain anywhere or SOA. States he has had 3 episodes of hemoptysis and takes aspirin and plavix. History of Present Illness HPI narrative: Hever Lemos is a 79-year-old male with a history of chronic atrial fibrillation on aspirin and Plavix, coronary artery disease, STEMI in November 2024 status post stenting who presents to the emergency department for complaints of coughing up blood. Patient states that this morning, he had a couple of episodes where he coughed up blood with clots in it. He denies any shortness of breath or chest pain. He states that this is never happened before. Prior to this he has been in his normal state of health. He denies any nausea, vomiting, diarrhea, abdominal pain. Related Data Home Medications ?Medication ?Instructions ?Recorded ?Confirmed metoprolol tartrate 100 mg tablet 100 mg PO BID 05/31/24 01/01/25 aspirin 81 mg tablet,delayed 81 mg PO DAILY 06/05/24 01/01/25 release (Adult Low Dose Aspirin) metformin 500 mg tablet 500 mg PO BID 11/21/24 01/01/25 Previous Rx's ?Medication ?Instructions ?Recorded atorvastatin 40 mg tablet 40 mg PO HS 30 days #30 tabs 11/22/24 clopidogrel 75 mg tablet 75 mg PO DAILY 30 days #30 tabs 11/22/24 losartan 50 mg tablet 50 mg PO DAILY #30 tabs 11/22/24 famotidine 40 mg tablet 40 mg PO BID #180 tabs 11/28/24 nitroglycerin 0.4 mg sublingual 0.4 mg sublingual Q5-15M PRN chest 12/26/24 tablet pain #30 tabs Allergies Allergy/AdvReac Type Severity Reaction Status Date / Time No Known Allergies Allergy Verified 01/01/25 08:24 [facility] Disclaimer: The information contained in this section may have been updated after the patient was seen, as this information can be updated by other users. Medical History (Updated 01/01/25 @ 10:45 by Gucci Webb MD) Mixed hyperlipidemia LVH (left ventricular hypertrophy) Synovial cyst of foot Broken tooth Encounter for immunization Contusion, lips Contusion of mouth Laceration of oral cavity Blister of great toe, left, infected Viral syndrome Infected wound Patellar bursitis of left knee Strain of left knee Pain and swelling of left knee Abnormal echocardiogram Hyperlipidemia Hypertension CAD (coronary artery disease) Afib ST elevation myocardial infarction (STEMI) of inferior wall Family History (Updated 01/01/25 @ 08:16 by Varsha Coffman RN) Other No significant family history Social History Smoking Status: Never smoker alcohol intake: never current occupational status: retired Travel in the last 8 weeks?: Inside the [place] household members: spouse housing: house Have you lived/traveled outside US in past 30 days?: No Contact w/someone who lives/traveled outside US past 30 days?: No Exposure to someone with infectious disease in past 14 days?: No Do you have a fever (greater than 100.4 F or 38 C)?: No Have you tested positive for COVID-19?: No Exposed to someone with COVID-19 in past 14 days?: No Do you have a sore throat?: No Do you have a cough?: No Do you have any weakness?: No Do you have any diarrhea?: No Are you experiencing any unusual bleeding?: Yes Do you have any muscle aches/pain?: No Do you have any abdominal pain?: No Are you experiencing loss of taste or smell?: No Other Medical History Have you received the Flu Vaccine for this season: No Have you received the Pneumonia Vaccine: Yes ROS Obtained: Yes Systems reviewed as appropriate & no additional complaints except as documented Physical Exam General General appearance: alert and in no apparent distress Head Head exam: atraumatic Eye Eye exam: Present normal appearance ENT ENT exam: Present normal external ear exam Neck Neck exam: Present full ROM Chest Chest inspection: Present symmetric chest wall rise Respiratory Respiratory exam: Present normal lung sounds bilaterally and other (Some bloody sputum on rag); Absent respiratory distress, wheezes, stridor or accessory muscle use Cardiovascular Cardiovascular exam: Present regular rate and normal rhythm Abdominal Exam Abdominal exam: Present soft; Absent tenderness or guarding exam: Present deferred Extremities Exam Extremities exam: Present normal inspection Back Exam Back exam: Present normal inspection Neurological Exam Neurological exam: Present alert and oriented X3 Psychiatric Psychiatric exam: Present normal affect Skin Skin exam: Present warm and dry Medical Decision Making Medical Records Screening: Per USPSTF and CDC recommendations, given the prevalence of disease in our region, it is our hospital?s policy to screen for HIV and viral Hepatitis for all patients aged 18 and over and those with ongoing risk factors. Merlin Inquiry Pt receiving controlled substance: No Vital Signs: 01/01/25 08:15 01/01/25 08:15 01/01/25 08:31 Temperature 97.8 F 97.8 F Temperature Source Oral Pulse Rate 76 83 Pulse Rate [Right] 76 Respiratory Rate 18 18 17 Blood Pressure 149/79 H 116/68 Blood Pressure [Right Arm] 149/79 H Blood Pressure Mean [Right Arm] 102 Blood Pressure Source [Right Arm] Automatic Cuff Blood Pressure Position [Right Arm] Sitting 02 Sat by Pulse Oximetry 99 99 97 Oxygen Delivery Method Room Air 01/01/25 09:00 01/01/25 09:30 01/01/25 10:00 Temperature Temperature Source Pulse Rate 80 71 78 Pulse Rate [Right] Respiratory Rate 15 20 16 Blood Pressure 120/77 105/73 L 107/67 L Blood Pressure [Right Arm] Blood Pressure Mean [Right Arm] Blood Pressure Source [Right Arm] Blood Pressure Position [Right Arm] 02 Sat by Pulse Oximetry 97 97 98 Oxygen Delivery Method Lab Data Lab Results 01/01/25 08:17: WBC 17.8 H, RBC 3.99 L, Hgb 12.0 L, Hct 37.4 L, MCV 93.7, MCH 30.1, MCHC 32.1, RDW 13.0, Plt Count 284, MPV 10.5 H, Neut % (Auto) 65.2, Lymph % (Auto) 23.4, Weakley % (Auto) 8.6, Eos % (Auto) 1.9, Baso % (Auto) 0.5, Neut # (Auto) 11.6 H, Lymph # (Auto) 4.2, Weakley # (Auto) 1.5 H, Eos # (Auto) 0.3, Baso # (Auto) 0.1, Sodium 137, Potassium 5.2 H, Chloride 102, Carbon Dioxide 30, Anion Gap 10.2, BUN 43 H, Creatinine 0.60 L, Estimated Creat Clear 94, Estimated GFR 131, Est GFR ( Amer) 158, Glucose 142 H, Calcium 8.8, Total Bilirubin 0.7, AST 26, ALT 23, Alkaline Phosphatase 55, Troponin I < 0.01, NT-Pro-B Natriuret Pep 310, Total Protein 6.5, Albumin 3.3 L, Globulin 3.2, Albumin/Globulin Ratio 1.0 L, Blood Type B Positive, Antibody Screen Negative 01/01/25 08:17 01/01/25 08:17 Orders (Tests/Meds): ED MEDICATIONS Generic Name Dose Route Start Last Admin Trade Name Freq PRN Reason Stop Dose Admin Sodium Chloride 10 ml 01/01/25 08:50 01/01/25 08:52 Sodium Chloride 0.9% 10ml Syr (Rad Only) IV 01/31/25 08:49 10 ml NEEDED PRN Administration Maintain IV Site Discontinued Medications Generic Name Dose Route Start Last Admin Trade Name Freq PRN Reason Stop Dose Admin Iopamidol 70 ml 01/01/25 08:50 01/01/25 08:51 Iopamidol-370 (76%);100ml Bottle IV 01/01/25 08:51 70 ml ONCE ONE Administration Sodium Chloride 50 ml 01/01/25 08:50 01/01/25 08:51 0.9 % Sodium Chloride 50 Ml Vial IV 01/01/25 08:51 50 ml ONCE ONE Administration ORDERS Category Date Time Status Type and Screen Stat BBK 01/01/25 08:[address] angio chest PE protocol Stat Cat Scan 01/01/25 08:25 Completed BNP [NT Pro Brain Natriuretic Pep.] Stat Lab 01/01/25 08:17 Completed CBC w/Auto Diff [Complete Blood Count Auto Diff] Stat Lab 01/01/25 08:17 Completed CMP [Comprehensive Metabolic Panel] Stat Lab 01/01/25 08:17 Completed Troponin I Q3H Lab 01/01/25 11:30 Ordered Troponin I Q3H Lab 01/01/25 14:30 Ordered Troponin I Stat Lab 01/01/25 08:17 Completed ECG Data Tracing #1: I reviewed this ECG and interpreted as documented below: Atrial fibrillation with ventricular rate of [address] elevation or depressions. No T wave inversions. QTc normal at 421 Medical Decision Narrative: Hever Lemos is a 79-year-old male with a history of chronic atrial fibrillation on aspirin and Plavix, coronary artery disease, STEMI in November 2024 status post stenting who presents to the emergency department for complaints of coughing up blood. Patient states that this morning, he had a couple of episodes where he coughed up blood with clots in it. He denies any shortness of breath or chest pain. He states that this is never happened before. Prior to this he has been in his normal state of health. He denies any nausea, vomiting, diarrhea, abdominal pain. On arrival, patient is mildly hypertensive with blood pressure 149/79, heart rate within normal limits, breathing comfortably on room air with oxygen saturation 99% SpO2. Afebrile. Physical exam, as stated above, reveals an overall well-appearing male in no distress. He is sitting upright in his stretcher, speaking in full sentences. He is in no distress. Cardiopulmonary exam is unremarkable with no murmurs, wheezing, rales or rhonchi. Abdomen is soft, nontender nondistended. There is a rag with the patient with some clotted blood in the rag. Differential diagnosis includes, but is not limited to: Pulmonary embolism, bronchitis, diffuse alveolar hemorrhage, pneumonia, dissection, ACS,among others. The most morbid conditions were considered and workup was based on these. Workup in the emergency room included: CTA pulmonary was in protocol, CBC, CMP, troponin, EKG, BNP. Workup showed white blood cell count elevated at 17.8, however last month, patient has had elevated white blood cell counts in the 11-13 range. Patient is had no infectious symptoms. Platelets normal at 284. Mildly elevated potassium of 5.2 but electrolytes otherwise within normal range. No IRAIS. BUN is mildly elevated at 43 but has had no symptoms of GI bleeding. Initial troponin less than 0.01. BNP normal at 310. EKG is nonischemic. See interpretation above CT imaging interpreted by me personally. No evidence of pulmonary embolism, no aortic dissection, no groundglass opacities to suggest pneumonia or diffuse alveolar hemorrhage. See final radiology report for details. There is evidence of esophagitis in the distal esophagus, but this is unlikely to be the source of patient's bleeding as he has not been vomiting of blood. He reports that he has reflux issues at times. On reassessment, patient is in stable condition. He is eager to go home at this time. His workup today is unremarkable for any acute pathology. Patient's hemoptysis could be secondary to bronchitis. Given he is on aspirin and a blood thinner, I encouraged him to avoid taking tonight's dose and to follow with his primary care physician tomorrow for reassessment and further instructions on when to continue his anticoagulation. I gave him strict return precautions, all questions were answered. He, his and son were all in the room and demonstrated understanding and were in agreement this plan. He was then discharged from the emergency department in stable condition. Critical Care Critical Care Time Critical Care Time: No
[2025-01-01 08:31] VITALS: BP 116/68; PULSE 83; RESP 17; O2SAT 97
[2025-01-01 08:39] LABS: Albumin Level 3.3 g/dl (3.5-5.0); Chloride 102 mmol/L (98-107); Potassium 5.2 mmoL/L (3.5-5.1); Sodium 137 mmol/L (136-145)
[2025-01-01 08:40] LABS: Hematocrit 37.4 % (42.0-52.0); Hemoglobin 12.0 g/dL (14.1-18.0); Immature Granulocytes % 0.4 %; Mean Corpuscular HGB Conc 32.1 g/dL (31.8-35.4); Mean Corpuscular Hemoglobin 30.1 pg (27.0-31.2); Mean Corpuscular Volume 93.7 fl (80-94); Nucleated Red Blood Cells % 0 %; Platelet Count 284 K/mm3 (142-424); Red Blood Count 3.99 M/mm3 (4.60-6.20); Red Cell Distribution Width-SD 44.1 fL; White Blood Count 17.8 K/mm3 (4.8-10.8)
[2025-01-01 08:42] LABS: Alanine Aminotransferase 23 U/L (12-78); Albumin/Globulin Ratio 1.0 (1.1-1.8); Alkaline Phosphatase 55 U/L (38-126); Anion Gap 10.2 mEq/L (5-15); Aspartate Amino Transferase 26 U/L (17-59); Bilirubin,Total 0.7 mg/dl (0.2-1.3); Blood Urea Nitrogen 43 mg/dl (9-20); Carbon Dioxide 30 mmol/L (22.0-30.0); Creatinine Clearance Estimated 94 mL/min (50-200); Creatinine,Serum 0.60 mg/dl (0.66-1.25); Estimated Glomerular Filt Rate 131 ml/min (>60); GFR (African American) 158 ML/MIN (>60); Globulin 3.2 g/dL (1.3-3.2); Total Protein,Serum 6.5 g/dl (6.3-8.2)
[2025-01-01 08:43] LABS: Calcium 8.8 mg/dl (8.4-10.2); Glucose 142 mg/dl (74-100)
[2025-01-01] MEDS: 0.9 % SODIUM CHLORIDE 50 ML VIAL IV (08:51)
[2025-01-01] MEDS: IOPAMIDOL-370 (76%);100ML BOTTLE 70 ML IV (08:51)
[2025-01-01 08:52] LABS: NT Pro Brain Natriuretic Pep. 310 pg/mL (0-450)
[2025-01-01] MEDS: SODIUM CHLORIDE 0.9% 10ML SYR (RAD ONLY) 10 ML IV (08:52)
[2025-01-01 09:00] VITALS: BP 120/77; PULSE 80; RESP 15; O2SAT 97
[2025-01-01 09:18] LABS: Troponin I < 0.01 ng/ml (0.00-0.034)
[2025-01-01 09:30] VITALS: BP 105/73; PULSE 71; RESP 20; O2SAT 97
[2025-01-01 10:00] VITALS: BP 107/67; PULSE 78; RESP 16; O2SAT 98
[2025-01-01 10:50] VITALS: BP 112/72; PULSE 75; RESP 14; TEMP 36.9; O2SAT 98
== END 2025-01-01 10:58 | disposition home or self-care (01) ==
PROVIDERS: Emergency Provider Student in an Organized Health Care Education/Training Program; PCP Internal Medicine
DX: R04.2 Hemoptysis (principal); E78.5 Hyperlipidemia, unspecified; I25.10 Atherosclerotic heart disease of native coronary artery without angina pectoris; I48.20 Chronic atrial fibrillation, unspecified; G62.9 Polyneuropathy, unspecified
CPT/HCPCS: 71275; 80053; 83880; 84484; 85025; 86850; 93005; 99285; Q9967

== ENCOUNTER 2025-01-02 09:27 | Outpatient (CLI) | payer BC, SELFPAY ==
--- OUTSIDE RECORDS SUMMARY | 2025-01-02 09:30 | XMS_ITS | Encounter Summary ---
Author Organization [facility] Address [address] [place] [id number] Care Team Providers Care Decal Maker Name Role Phone Sánchez Torres MD Primary Care Provider [phone] Reason for Visit * Reason Onset Date Comments Med Refill 12/10/2024 Encounter Details Date Type Department Care Team (Late st Contact Info) Description 12/10/2024 Refill [facility] [address] [place] [address] Wagner Jones MD [address] [facility] [address] [place] [id number] Med Refill Social History Tobacco Use Types [...] Description 05/08/2025 10:30 AM EST Office Visit [facility] [address] [facility] [address] [place] [address] Wagner Jones MD [address] [facility] [address] [place] [address] Scheduled Procedures Name Priority Associated Diagnoses Date/Ti me LEFT ATRIAL APPENDAGE OCCLUSION Persistent atrial fibrillation documented as of this encounter Visit Diagnoses Not on filedocumented in this encounter Care Teams Decal Maker Relationship Specialty Start Date End Date Sánchez Torres MD [address] [facility] [address] [place] [address] PCP - General 06/25/15 documented as of this encounter
--- OUTSIDE RECORDS SUMMARY | 2025-01-02 09:30 | XMS_ITS | Clinical Summary ---
Author Organization [facility] Address [address] [place] [address] Care Team Providers Care Forming Machine Tender Name Role Phone Sánchez Torres MD Primary Care Provider [phone] Allergies No known active allergies Medications Multiple [...] (12/02/2017): Added automatically from request for surgery [id number] Obesity due to excess calories 10/06/2017 Atrial [...] re-initiation of sotalol 40 mg b.i.d. e. SOOC cardioversion on 02/10/2010, Dr. Addison: Successful conversion [...] Type Department Care Team Description 12/10/2024 Refill [facility] [address] [facility] [address] [place] [address] Wagner Jones MD Med Refill from Last [...] Description 05/08/2025 10:30 AM EST Office Visit [facility] [address] [facility] [address] [place] [address] Wagner Jones MD [address] [facility] [address] [place] [address] Scheduled Procedures Name Priority Associated Diagnoses Date/Ti [...] , 02/27/2022 Medical Devices Implanted Type Area Waterproof Material Folder Device Identifier Shelf Expiration Date Model / Serial / Lot Appl Clip Savana Atriclip Pro2 40mm - [id number] Implanted:Qty: 1 on 01/02/2018 by Bucky Holland MD at [facility] Implant Heart ATRICURE 01/05/2020 [id number] / / [id number] Procedures Procedure Name Priority Date/Time Associated Diagnosis Comments HEMOGLOBIN A1C Routine 12/18/2017 12:05 PM EDT Atrial flutter, unspecified type from Last 3 Months or Most Recently Relevant to Health Maintenance Results * (ABNORMAL) Hemoglobin A1c (12/18/2017 12:05 PM EDT) Hemoglobin A1C 6.30(H) 4.80 - 5.60 % 12/18/2017 1:42 PM EDT [facility] Blood Venipuncture / Unknown 12/18/2017 12:05 PM EDT 12/18/2017 12:48 PM EDT Narrative [facility] - 12/18/2017 1:42 PM EDT The [place] [employer] recommends maintenance of Hemoglobin A1C at 7.0% or lower. Goals for Hemoglobin A1C reduction may need to be modified if hypoglycemia is a problem. us Becky Botello PA-C LAB BLOOD ORDERABLES Final R esult [facility]
[address] [place] [address], from Last 3 Months or Most Recently [...] Of Support Discussed With: Patient Care Teams Forming Machine Tender Relationship Specialty Start Date End Date Sánchez Torres MD [address] [facility] [address] [place] [address] PCP - General 06/25/15
--- OUTSIDE RECORDS SUMMARY | 2025-01-02 09:30 | XMS_ITS | Clinical Summary ---
Author Organization [facility] Address Formerly named [facility] [place] [id number] Care Team Providers Care Machine Lacer Name Role Phone Sánchez Torres MD Primary Care Provider [phone] Allergies No known active allergies Medications metoprolol [...] or (1 - 1-dose 75+ series) 2022 [id number] Vaccine ( - season) 2024 02/27/2022, 03/05/2021, [...] age to complete this [place] [address] [facility] Care Teams Machine Lacer Relationship Specialty Start Date End Date Sánchez Torres MD [address] [facility] [address] [place] [address] PCP - General 02/15/22
--- NOTE | 2025-01-02 09:34 | XR_ITS ---
FINAL REPORT CLINICAL HISTORY: Hemoptysis COMPARISON: 11/20/2024 FINDINGS: PA and lateral views of the chest are obtained. There is no prior exam for comparison. The cardiac and mediastinal silhouettes are within normal limits. Changes of emphysema are present. There is no pleural effusion, pneumothorax, or acute osseous abnormality. IMPRESSION: No radiographic evidence of acute cardiac or pulmonary disease. Reviewed, Interpreted and Dictated by Gabriela Oliva MD Transcribed by Luisa Salcedo Authenticated and [facility]
[2025-01-02 09:46] LABS: Hematocrit 35.3 % (42.0-52.0); Hemoglobin 11.8 g/dL (14.1-18.0); Immature Granulocytes % 0.2 %; Mean Corpuscular HGB Conc 33.4 g/dL (31.8-35.4); Mean Corpuscular Hemoglobin 30.7 pg (27.0-31.2); Mean Corpuscular Volume 91.9 fl (80-94); Nucleated Red Blood Cells % 0 %; Platelet Count 311 K/mm3 (142-424); Red Blood Count 3.84 M/mm3 (4.60-6.20); Red Cell Distribution Width-SD 44.7 fL; White Blood Count 14.9 K/mm3 (4.8-10.8)
[2025-01-02 10:12] LABS: Chloride 106 mmol/L (98-107); Potassium 4.5 mmoL/L (3.5-5.1); Sodium 136 mmol/L (136-145)
[2025-01-02 10:15] LABS: Anion Gap 8.5 mEq/L (5-15); Blood Urea Nitrogen 33 mg/dl (9-20); Calcium 8.9 mg/dl (8.4-10.2); Carbon Dioxide 26 mmol/L (22.0-30.0); Creatinine,Serum 0.60 mg/dl (0.66-1.25); Estimated Glomerular Filt Rate 131 ml/min (>60); GFR (African American) 158 ML/MIN (>60); Glucose 121 mg/dl (74-100)
[2025-01-02 11:18] LABS: Albumin Level 3.3 g/dl (3.5-5.0)
[2025-01-02 11:21] LABS: Alanine Aminotransferase 21 U/L (12-78); Alkaline Phosphatase 63 U/L (38-126); Aspartate Amino Transferase 26 U/L (17-59); Bilirubin,Direct 0.2 mg/dl (0.0-0.4); Bilirubin,Indirect 0.3 mg/dL (0.0-0.9); Bilirubin,Total 0.5 mg/dl (0.2-1.3); Bilirubin,Unconjugated 0.3 mg/dL (0.0-1.1); Cholesterol 111 mg/dl (140-200); Total Protein,Serum 6.3 g/dl (6.3-8.2); Triglycerides 222 mg/dl (30-150)
[2025-01-02 11:22] LABS: HDL Cholesterol 34 mg/dl (40-60); Magnesium 1.9 mg/dl (1.6-2.3)
[2025-01-02 11:29] LABS: RBC Morphology Normal; Total Cells Counted 100
[2025-01-02 11:39] LABS: Free T4 (Free Thyroxine) 0.89 ng/dl (0.78-2.19)
[2025-01-02 12:59] LABS: Thyroid Stimulating Hormone 4.00 uIU/mL (0.465-4.68)
== END 2025-01-02 23:59 | disposition home or self-care (01) ==
LOC: RAD 09:28
PROVIDERS: Physician Assistant; PCP Internal Medicine; Visit Provider Internal Medicine
DX: R04.2 Hemoptysis (principal); K92.1 Melena; I25.10 Atherosclerotic heart disease of native coronary artery without angina pectoris; E78.2 Mixed hyperlipidemia; I11.9 Hypertensive heart disease without heart failure
CPT/HCPCS: 71046; 80048; 80061; 80076; 83735; 84439; 84443; 85007; 85025

== ENCOUNTER 2025-01-09 10:26 | Outpatient (CLI) | payer BC, SELFPAY ==
--- OUTSIDE RECORDS SUMMARY | 2025-01-09 10:28 | XMS_ITS | Clinical Summary ---
Author Organization [facility] Address [address] [place] [id number] Care Team Providers Care Dishcloth Folder Name Role Phone Sánchez Torres MD Primary Care Provider [phone] Allergies No known active allergies Medications Multiple Vitamins-Mineral s (CENTRUM ULTRA MENS PO) Take 1 tablet by mouth Daily. Active aspirin 81 MG EC tablet Take 1 tablet by mouth Daily. Active metFORMIN (GLUCOPHAGE) 500 MG tablet TAKE ONE TABLET BY MOUTH TWICE DAILY FOR sugar --TAKE WITH FOOD-- 02/16/2022 Active naproxen (NAPROSYN) 500 MG tablet TAKE 1 TABLET 2 TIMES EACH DAY WITH MEALS 03/28/2023 Active amLODIPine (NORVASC) 5 MG tablet Take 1 tablet by mouth Daily. 90 tablet 2 08/06/2024 Active metoprolol tartrate (LOPRESSOR) 100 MG tablet Take 1 tablet by mouth 2 (Two) Times a Day. 180 tablet 2 12/10/2024 Active Active Problems Problem Noted Date Diagnosed Date Atrial flutter 12/19/2017 Atrial fibrillation 12/02/2017 Overview (12/02/2017): Added automatically from request for surgery [id number] Obesity due to excess calories 10/06/2017 Atrial [...] Type Department Care Team Description 12/10/2024 Refill [facility] [address] [facility] [address] [place] [address] Wagner Jones MD Med Refill from Last [...] Description 05/08/2025 10:30 AM EST Office Visit [facility] [address] [facility] [address] [place] [address] Wagner Jones MD [address] [facility] [address] [place] [address] Scheduled Procedures Name Priority Associated Diagnoses Date/Ti [...] , 02/27/2022 Medical Devices Implanted Type Area Slip Laster Device Identifier Shelf Expiration Date Model / Serial / Lot Appl Clip Savana Atriclip Pro2 40mm - [id number] Implanted:Qty: 1 on 01/02/2018 by Bucky Holland MD at [facility] Implant Heart ATRICURE 01/05/2020 [id number] / / [id number] Procedures Procedure Name Priority Date/Time Associated Diagnosis Comments HEMOGLOBIN A1C Routine 12/18/2017 12:05 PM EDT Atrial flutter, unspecified type from Last 3 Months or Most Recently Relevant to Health Maintenance Results * (ABNORMAL) Hemoglobin A1c (12/18/2017 12:05 PM EDT) Hemoglobin A1C 6.30(H) 4.80 - 5.60 % 12/18/2017 1:42 PM EDT [facility] Blood Venipuncture / Unknown 12/18/2017 12:05 PM EDT 12/18/2017 12:48 PM EDT Narrative [facility] - 12/18/2017 1:42 PM EDT The [place] [employer] recommends maintenance of Hemoglobin A1C at 7.0% or lower. Goals for Hemoglobin A1C reduction may need to be modified if hypoglycemia is a problem. us Becky Botello PA-C LAB BLOOD ORDERABLES Final R esult [facility]
[address] [place] [address], from Last 3 Months or Most Recently [...] Of Support Discussed With: Patient Care Teams Dishcloth Folder Relationship Specialty Start Date End Date Sánchez Torres MD [address] [facility] [address] [facility] [address] PCP - General 06/25/15
--- OUTSIDE RECORDS SUMMARY | 2025-01-09 10:28 | XMS_ITS | Encounter Summary ---
Author Organization [facility] Address [address] [place] [phone] Care Team Providers Care Lunchroom Attendant Name Role Phone Sánchez Torres MD Primary Care Provider [phone] Reason for Visit * Reason Onset Date Comments Med Refill 12/10/2024 Encounter Details Date Type Department Care Team (Late st Contact Info) Description 12/10/[address] [facility] [address] [place] [address] Wagner Jones MD [address] [facility] [address] [place] [id number] Med Refill Social History Tobacco Use Types [...] Description 05/08/2025 10:30 AM EST Office Visit [facility] [address] [place] [address] Wagner Jones MD [address] [facility] [address] [place] [address] Scheduled Procedures Name Priority Associated Diagnoses Date/Ti me LEFT ATRIAL APPENDAGE OCCLUSION Persistent atrial fibrillation documented as of this encounter Visit Diagnoses Not on filedocumented in this encounter Care Teams Lunchroom Attendant Relationship Specialty Start Date End Date Sánchez Torres MD [address] [facility] [address] [place] [address] PCP - General 06/25/15 documented as of this encounter
--- OUTSIDE RECORDS SUMMARY | 2025-01-09 10:28 | XMS_ITS | Clinical Summary ---
Author Organization [facility] Address [facility] [place] [id number] Care Team Providers Care Photo Print Specialist Name Role Phone Sánchez Torres MD Primary Care Provider [phone] Allergies No known active allergies Medications metoprolol [...] or (1 - 1-dose 75+ series) 2022 [id number] Vaccine ( - season) 2024 02/27/2022, 03/05/2021, [...] age to complete this topic Insurance MEDICARE [facility] Care Teams Photo Print Specialist Relationship Specialty Start Date End Date Sánchez Torres MD [address] [facility] [address] [place] [address] PCP - General 02/15/22
--- NOTE | 2025-01-09 10:30 | MR_ITS ---
APPROVED REPORT Medical Practice Administrator: CLINICAL INDICATION HCM evaluation TECHNIQUE Image Acquisition: Cardiac magnetic resonance (CMR) was performed on Siemens Espree MRI 1.5T scanner. Software platform sequences were performed using the Siemens JFDI.Asia MR B19 platform. A set of three-plane, low-resolution, large gjvak-iv-ysmi localizers were initially acquired. Then axial, coronal, sagittal TrueFISP, as well as axial HASTE images, were obtained. These were followed by gated TrueFISP breathold cinematic sequences obtained in the short axis with 8 mm slices and 2 mm gaps, 2-chamber (vertical long axis), 3-chamber, 4-chamber (horizontal long axis). A bolus of contrast was injected intravenously with first-pass sequences obtained in the short axis and four-chamber planes. After approximately 10 minutes, a TI occupational health nurse sequence was performed to determine the optimal TI time. Using the optimized TI time, delayed contrast enhancement segmented inversion???recovery TurboFLASH sequences were obtained in the short axis, 2-chamber, 3-chamber, and 4-chamber projections. 2D-velocity phase mapping was performed. Functional parameters were calculated by offline analysis on an independent workstation ([employer], [employer]). Contrast: ProHance??? (Gadoteridol) FINDINGS MORPHOLOGY AND FUNCTION Left ventricle: The left ventricle is normal in size. The indexed left ventricular end-diastolic volume (LVEDVi) is 67 ml/m2 (reference range 57-105 ml/m2 in males, 56-96 ml/m2 in females). Normal left ventricular systolic function is present. There is mildly increased left ventricular wall thickness (maximum 11.5 mm). Proximal septal thickening is present. There are no regional wall motion abnormalities noted. LVEF is calculated at 57.0% (reference range 57-77%). Right ventricle: The right ventricle is normal in size. The indexed right ventricular end-diastolic volume (RVEDVi) is 62 ml/m2 (reference range 61-121 ml/m2 in males, 48-112 ml/m2 in females). Mild reduction in right ventricular systolic function is present. RVEF is calculated at 47.5% (reference range 52-72% in males, 51-71% in females). Atria: The left atrium is severely dilated. The maximum indexed left atrial volume is 91 ml/m2 (reference range 26-52 ml/m2 in males, 27-53 ml/m2 in females). The right atrium is severely dilated. The maximum indexed right atrial volume is 52 ml/m2 (reference range 18-90 ml/m2). Aorta: The diameter of the aortic annulus is normal, measuring 28 mm (coronal view reference range 21-30 mm in males, 19-27 mm in females). The diameter of the aortic sinus is normal, measuring 35 mm (coronal view reference range 25-42 mm in males, 24-36 mm in females). The diameter of the sinotubular junction is normal, measuring 30 mm (coronal view reference range 18-32 mm in males, 18-28 mm in females). The diameters of the ascending and descending thoracic aorta are normal. Main pulmonary artery: The main pulmonary artery is mildly dilated, measuring 32 mm in diameter. Pericardium: The pericardial thickness is normal. The pericardial thickness measures 1.2 mm (normal < 4.0 mm). There is no pericardial effusion. VALVES The valvular morphologies in the visualized sequences appear normal. There is no significant valvular stenosis or regurgitation of the mitral, aortic, tricuspid, or pulmonic valve noted visually. Systolic anterior motion of the mitral valve is not visualized. Ratio of pulmonary to systemic flow, Qp:Qs ratio = 1.23 (normal < or = 1.2, hemodynamically significant shunt > 1.5), demonstrating no evidence of hemodynamically significant shunt. TISSUE CHARACTERIZATION Resting Perfusion: Normal myocardial blood flow at rest. No evidence of resting hypoperfusion. Myocardial Fibrosis and/or edema: Normal gadolinium kinetics are present. No evidence of late gadolinium enhancement is noted, consistent with absence of myocardial scarring, infarction, or necrosis. T2-weighted imaging demonstrates no evidence of myocardial edema or inflammation. OTHER Small hiatal hernia is present. IMPRESSION Normal LV size with normal LV systolic function. LVEDVi= 67 ml/m2 and LVEF= 57.0%. Mildly increased LV wall thickness (maximum 11.5 mm). Proximal septal thickening is present. No evidence of SUPRIYA or septal contact. No LVOT obstruction at rest. Normal RV size with mildly reduced RV systolic function. RVEDVi= 62 ml/m2 and RVEF= 47.5%. Severe biatrial enlargement. No CMR evidence of myocardial scarring, infarction, or necrosis. No evidence of myocardial edema or inflammation. Perfusion analysis demonstrates normal blood flow at rest with no evidence of resting hypoperfusion. Ratio of pulmonary to systemic flow, Qp:Qs ratio = 1.23 (normal < or = 1.2, hemodynamically significant shunt > 1.5), demonstrating no evidence of hemodynamically significant shunt. Small hiatal hernia is incidentally noted. The main pulmonary artery is mildly dilated, measuring 32 mm in diameter. Correlation with new or recent CT chest to evaluate for pulmonary disease is suggested. This CMR demonstrates normal LV size and systolic function. There is mild RV dysfunction present. No evidence of myocardial scarring, fibrosis, or prior infarct. No CMR evidence of infiltrative or hypertrophic cardiomyopathy. In the setting of mild RV dysfunction and mildly dilated PA, further pulmonary evaluation is suggested. COMPARISON None CRITICAL RESULT None COMMUNICATION The above findings were relayed to the patient at the time of the routine outpatient cardiology follow-up visit, prior to dictation of this report. The findings of this cardiac MR were reviewed, reported, and signed by Nakul eLvy MD ([employer]). Conclusion Electronically signed by : Jessica Levy MD 01/10/2025 10:35:41
[2025-01-09] MEDS: GADOTERIDOL INJ 20ML SYRINGE 20 ML IV (11:35)
[2025-01-09] MEDS: GADOTERIDOL INJ 10ML SYRINGE 3 ML IV (11:35)
[2025-01-09] MEDS: SODIUM CHLORIDE 0.9% 10ML SYR (RAD ONLY) 10 ML IV (11:35)
[2025-01-09] MEDS: 0.9 % SODIUM CHLORIDE 50 ML VIAL 10 ML IV (11:36)
== END 2025-01-09 23:59 | disposition home or self-care (01) ==
LOC: RAD 10:26
PROVIDERS: PCP Internal Medicine; Visit Provider Physician Assistant
DX: I28.1 Aneurysm of pulmonary artery (principal); I51.7 Cardiomegaly; I51.89 Other ill-defined heart diseases; K44.9 Diaphragmatic hernia without obstruction or gangrene; I25.10 Atherosclerotic heart disease of native coronary artery without angina pectoris; E78.2 Mixed hyperlipidemia
CPT/HCPCS: 75561; A9576

== ENCOUNTER 2025-02-07 07:31 | Day surgery (SDC) | payer BC, SELFPAY ==
[2025-02-01 10:17] VITALS: BMI 31.6
--- NOTE | 2025-02-06 06:51 | P.HP_ITS ---
History of Present Illness *Admission Date: 02/07/25 *History of present illness: Mr. Lemos is a 79-year-old gentleman who is here for diagnostic upper endoscopy and screening colonoscopy. He had a 2-day spell of hemoptysis with a lot of bright red blood that he coughed up. He went to the ED at [facility] on 01/01 and his hemoglobin hematocrit had dropped to 12.0 and 37.4 from 15.1 and 44.3). He also had melanotic stools for 2 days. He was taken off of his baby aspirin. Cardiology has seen the patient. 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 He had 2 coronary stents placed on 11/20/2024. The patient's last colonoscopy was more than 10 years ago. He also had an EGD more than 3 decades ago. At that time he was having dysphagia. He does report having recurrence of dysphagia to solids 6 months ago. He reports no abdominal pain, weight loss, change in his bowel habits or family history of colon cancer. He reports no indigestion, heartburn, reflux or family history of esophageal or gastric cancer. His CT imaging of the chest did show a hiatal hernia with distal esophageal wall thickening. He did not have CT of the abdomen or pelvis. [facility] Disclaimer: The information contained in this section may have been updated after the patient was seen, as this information can be updated by other users. Medical History Orbital fracture Bronchitis Coronary artery disease Mixed hyperlipidemia LVH (left ventricular hypertrophy) Abnormal echocardiogram Hyperlipidemia ST elevation myocardial infarction (STEMI) of inferior wall CAD (coronary artery disease) Afib Synovial cyst of foot Broken tooth Encounter for immunization Contusion, lips Contusion of mouth Laceration of oral cavity Blister of great toe, left, infected Viral syndrome Hypertension Infected wound Patellar bursitis of left knee Strain of left knee Pain and swelling of left knee Surgical History History of hernia repair Family History Other Heart disease Social History Smoking Status: Never smoker alcohol intake: never substance use type: denies use current occupational status: retired Travel in the last 8 weeks?: None household members: spouse housing: house Have you lived/traveled outside [place] in past 30 days?: No Contact w/someone who lives/traveled outside [place] past 30 days?: No Exposure to someone with infectious disease in past 14 days?: No Do you have a fever (greater than 100.4 F or 38 C)?: No Have you tested positive for COVID-19?: No Exposed to someone with COVID-19 in past 14 days?: No Do you have a sore throat?: No Do you have a cough?: No Do you have any weakness?: No Are you experiencing any nausea/vomitting?: No Do you have any diarrhea?: No Are you experiencing any unusual bleeding?: No Do you have any muscle aches/pain?: No Do you have any abdominal pain?: No Are you experiencing loss of taste or smell?: No Other Medical History Have you received the Flu Vaccine for this season: No Have you received the Pneumonia Vaccine: Yes Review of Systems Review of Systems Review of systems (narrative): Negative *Cardiovascular Comments: Negative *Gastrointestinal Comments: Negative *Genitourinary Comments: Negative *Musculoskeletal Comments: Negative *Neurologic Comments: Negative Meds Home Medications and Allergies Home Medications ?Medication ?Instructions ?Recorded ?Confirmed ?Type metoprolol tartrate 100 mg tablet 100 mg PO BID 02/01/25 History atorvastatin 40 mg tablet 40 mg PO HS 30 days #30 tabs 11/22/24 02/01/25 Rx clopidogrel 75 mg tablet 75 mg PO DAILY 30 days #30 t abs 11/22/24 02/01/25 Rx losartan 50 mg tablet 50 mg PO DAILY #30 tabs 11/0402/01/25 Rx famotidine 40 mg tablet 40 mg PO BID #180 tabs 11/2802/01/25 Rx nitroglycerin 0.4 mg sublingual 0.4 mg sublingual Q5-1 5M PRN chest 12/26/24 02/01/25 Rx tablet pain #30 tabs pantoprazole 40 mg tablet,delayed 40 mg PO DAILY #30 t abs 01/02/25 02/01/25 Rx release (Protonix) metformin 500 mg tablet 500 mg PO BID #180 tabs 08/0 10/2802/01/25 Rx multivitamin 1 tab PO DAILY 01/29/25 08/2 02/28 History New Prescriptions to Start Prescriptions: Allergies Allergy/AdvReac Type Severity Reaction Status Date / Time No Known Allergies Allergy Verified 02/01/25 10:06 Exam *Routine HEENT Exam Head: Present normocephalic Eye: Present EOMI and PERRL ENT: Present mucous membranes moist *Routine Neck Exam Neck: Present supple *Routine Respiratory Exam Respiratory: Present CTA bilaterally *Routine Cardiovascular Exam Cardiovascular: Present RRR *Routine Abdominal Exam Abdominal: Present soft and normoactive bowel sounds; Absent tenderness *Routine Rectal Exam Rectal:: deferred *Routine Genitalia Exam Genitalia:: deferred *Routine Extremities Exam Extremities: Absent cyanosis, clubbing or edema *Routine Skin Exam Skin: Present warm; Absent rash *Routine Neurological Exam Neurological: Present alert and oriented X3 Assessment and Plan *Assessment and plan (1) Abnormal computed tomography of esophagus: Status: Acute Category: Medical Code(s): R93.3 - Abnormal findings on diagnostic imaging of other parts of digestive tract (2) Anemia due to acute blood loss: Status: Acute Category: Medical Code(s): D62 - Acute posthemorrhagic anemia (3) Hemoptysis: Status: Acute Category: Medical Code(s): R04.2 - Hemoptysis (4) Melena: Status: Acute Category: Medical Code(s): K92.1 - Melena (5) GERD (gastroesophageal reflux disease): Status: Chronic Category: Medical Code(s): K21.9 - Gastro-esophageal reflux disease without esophagitis (6) Thickening of esophagus: Status: Acute Category: Medical Code(s): K22.89 - Other specified disease of esophagus (7) Screening for colon cancer: Status: Acute Category: Medical Code(s): Z12.11 - Encounter for screening for malignant neoplasm of colon Plan A/P: 1. Hemoptysis, melena, anemia acute GI blood loss and abnormal thickening of esophagus on CAT scan for upper endoscopy and screening for colonoscopy is the preprocedural diagnosis. The patient will be anesthetized/sedated using MAC sedation. The patient has been seen and examined. Cardiac and lung assessment prior to the examination is stable. Proceed with planned diagnostic EGD and screening colonoscopy.
[2025-02-07] VITALS (10 sets, daily range): BP systolic 85–155; BP diastolic 58–93; PULSE 62–77; RESP 16–18; TEMP 36.4–36.6; O2SAT 95–98
[2025-02-07] MEDS: LACTATED RINGERS 1000ML 1,000 ML 50 ML IV (07:48)
--- NOTE | 2025-02-07 08:07 | P.PCN_ITS ---
[facility] Procedure Note Date: 02/07/25 Time: 08:39 Procedure Note:: Colonoscopy Procedure Report: Colonoscopy with cold snare polypectomy Endoscopist: Wesly Alexander II, MD Referring physician: Sánchez Torres MD Date of Procedure: February 08, 2020 Equipment: Olympus [id number] adult colonoscope Sedation: MAC sedation Indication: Mr. Lemos is a 79-year-old gentleman who is here for diagnostic upper endoscopy and screening colonoscopy. He had a 2-day spell of hemoptysis with a lot of bright red blood that he coughed up. He went to the ED at [facility] on 01/01 and his hemoglobin hematocrit had dropped to 12.0 and 37.4 from 15.1 and 44.3). He also had melanotic stools for 2 days. He was taken off of his baby aspirin. Cardiology has seen the patient. 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 He had 2 coronary stents placed on 11/20/2024. The patient's last colonoscopy was more than 10 years ago. He also had an EGD more than 3 decades ago. At that time he was having dysphagia. He does report having recurrence of dysphagia to solids 6 months ago. He reports no abdominal pain, weight loss, change in his bowel habits or family history of colon cancer. He reports no indigestion, heartburn, reflux or family history of esophageal or gastric cancer. His CT imaging of the chest did show a hiatal hernia with distal esophageal wall thickening. He did not have CT of the abdomen or pelvis. It has been 10 years since last colonoscopy. He reports no family history of colon cancer. Procedure: Prior to the procedure, a history and physical exam was performed, and patient's medications and allergies were reviewed. The risks, benefits and alternatives of the sedation and procedure were discussed with the patient. All questions were answered and informed consent was obtained. The patient was brought to the procedure room. Patient identification and proposed procedure were verified by the physician and the nurse. The patient was placed in a left lateral decubitus position and the scope was passed under direct vision. Throughout the procedure, the patient's blood pressure, pulse, and oxygen saturations were monitored continuously. The colonoscopy was accomplished without difficulty. The patient tolerated the procedure well. Findings: On digital rectal examination there was normal rectal tone. There were no external hemorrhoids. The prostate was 2+, smooth, soft, symmetric without nodules. The colonoscope was introduced through the anal canal to the rectum and advanced to the cecum. The ileocecal valve and appendiceal orifice were identified. The scope was advanced a short distance into the ileum which appeared grossly normal. The scope was then withdrawn into the colon. There were 6 colon polyps (ascending x 4 (3, 4, 4 and 5 mm), descending x 1 (4 mm) and sigmoid x 1 (6 mm)). These were all removed via cold snare polypectomy. The remaining cecum, ascending and transverse colon and mucosa were grossly normal. There were scattered diverticuli throughout the descending and sigmoid colon (LEFT colon). The rectum itself was normal. Upon retroflexion within the rectum there were grade 2 internal hemorrhoids. The preparation was excellent throughout with Warren Preparation Score of 9. The cecal time was 14 minutes. Impression: 1. Diminutive colonic polyps x 6 2. Left-sided diverticulosis 3. Grade 2 internal hemorrhoids Plan: I will follow-up the polyp histology. I would encourage psyllium bulk and fiber supplementation. I will discuss the findings with the patient and family.
--- NOTE | 2025-02-07 08:07 | HMH.PROCNOTE ---
[facility] Procedure Note Date: 02/07/25 Time: 08:26 Procedure Note:: Upper Endoscopy Procedure Report: Esophagogastroduodenoscopy with cold biopsies and TTS balloon dilation Endoscopost: Wesly Alexander II, MD Referring Physician: Sánchez Torres MD Date of Procedure: February 07, 2025 Equipment: Olympus [id number] standard upper endoscope Sedation: MAC sedation Indications: Mr. Lemos is a 79-year-old gentleman who is here for diagnostic upper endoscopy and screening colonoscopy. He had a 2-day spell of hemoptysis with a lot of bright red blood that he coughed up. He went to the ED at [facility] on 01/01 and his hemoglobin hematocrit had dropped to 12.0 and 37.4 (from 15.1 and 44.3). He also had melanotic stools for 2 days. He was taken off of his baby aspirin. Cardiology has seen the patient. 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 He had 2 coronary stents placed on 11/20/2024. The patient's last colonoscopy was more than 10 years ago. He also had an EGD more than 3 decades ago. At that time he was having dysphagia. He does report having recurrence of dysphagia to solids 6 months ago. He reports no abdominal pain, weight loss, change in his bowel habits or family history of colon cancer. He reports no indigestion, heartburn, reflux or family history of esophageal or gastric cancer. His CT imaging of the chest did show a hiatal hernia with distal esophageal wall thickening. He did not have CT of the abdomen or pelvis. Colonoscopy is performed for screening purposes because it has been more than 10 years since prior colonoscopy. Procedure: Prior to the procedure, a history and physical exam was performed, and patient's medications and allergies were reviewed. The risks, benefits and alternatives of the sedation and procedure were discussed with the patient. All questions were answered and informed consent was obtained. The patient was brought to the procedure room. Patient identification and proposed procedure were verified by the physician and the nurse. The patient was placed in a left lateral decubitus position and the scope was passed under direct vision. Throughout the procedure, the patient's blood pressure, pulse, and oxygen saturations were monitored continuously. The upper GI endoscopy was accomplished without difficulty. The patient tolerated the procedure well. Findings: The scope was passed directly into the upper esophagus and advanced to the third portion of the duodenum. The post bulbar duodenum and duodenal bulb were normal with normal mucosa and conniventes. The scope was withdrawn through a normal duodenal bulb and pylorus into the stomach. The antrum, body and fundus of the stomach were grossly normal. Upon retroflexion there was some mucosal change right at the GE junction but no hiatal hernia. The scope was then withdrawn into the esophagus. Within the esophagus was a circumferential friable fungating mass with margination. This extended from 42 cm from the incisors to 37 cm from the incisors and was a 5 cm distal esophageal mass. Distally, this was circumferential and as it extended proximally was hemiferential. Multiple biopsies were obtained. This did appear to be arising within short segment Glaser's. After the biopsies were taken, the esophagus and malignant stricture was dilated up to 20 mm with a TTS hydrostatic balloon. The remainder of the esophageal mucosa was normal. Impression: 1. 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 I will obtain imaging today for staging and make referral to oncology.
[2025-02-07 08:12] LABS: POC Glucose,Bedside 110 gm/dL (70-110)
--- NOTE | 2025-02-07 08:41 | CT_ITS ---
FINAL REPORT TECHNIQUE: CT examination of the abdomen and pelvis was performed before and after the administration of intravenous contrast. Axial sections were obtained from the lung bases through the pelvis. Multiplanar reconstructions in the sagittal and coronal planes were subsequently performed. This study was performed with techniques to keep radiation doses as low as reasonably achievable (ALARA). Individualized dose reduction techniques using automated exposure control or adjustment of mA and/or kV according to the patient's size were employed. CLINICAL HISTORY: New diagnosis distal esophageal cancer-staging COMPARISON: None FINDINGS: CT ABDOMEN PELVIS WITH AND WITHOUT CONTRAST: Precontrast enhanced images reveal calcified stones in the dependent portion of the gallbladder. No renal stones are identified. Postcontrast enhancement there is abnormal wall thickening of the distal esophagus associated with a small hiatal hernia. The liver appears unremarkable. The gallbladder wall is slightly indistinct, that may be secondary to mild wall thickening/edema, and early or subacute cholecystitis is not excluded. The remainder of the solid organs are unremarkable. The appendix appears unremarkable without evidence of inflammatory change. There are scattered diverticula present in the sigmoid colon. No abdominal or pelvic adenopathy or masses otherwise noted. IMPRESSION: Abnormal wall thickening of the distal esophagus, in this patient with recently diagnosed esophageal carcinoma. No significant abdominal or pelvic adenopathy or masses otherwise noted. The gallbladder wall is slightly indistinct, possibly secondary to mild wall thickening or edema. Early or subacute cholecystitis is not excluded. Reviewed, Interpreted and Dictated by Brock Barajas MD Transcribed by Luisa Salcedo Authenticated and [facility]
--- NOTE | 2025-02-07 08:41 | CT_ITS ---
FINAL REPORT TECHNIQUE: Axial images were obtained through the chest without contrast. Sagittal and coronal reconstructions were subsequently performed. This study was performed with techniques to keep radiation doses as low as reasonably achievable (ALARA). Individualized dose reduction techniques using automated exposure control or adjustment of mA and/or kV according to the patient's size were employed. CLINICAL HISTORY: New diagnosis distal esophageal cancer COMPARISON: None available FINDINGS: CT CHEST WITHOUT CONTRAST: Extensive coronary artery calcifications are identified. There is a right coronary artery stent present. No mediastinal or hilar adenopathy is noted. There is no axillary adenopathy. Chronic changes are present in the lung bases. No infiltrates or effusions are noted. No evidence of pericardial effusion is seen. There is mucosal thickening of the distal esophagus measuring up to 1.5 cm in diameter, associated with a small sliding-type hiatal hernia. This was also noted on the prior CTA of the chest dated 01/01/2025. IMPRESSION: Mucosal thickening of the distal esophagus measuring up to 1.5 cm, also seen on the prior CTA of the chest dated 01/01/2025. This apparently represents distal esophageal carcinoma. Reviewed, Interpreted and Dictated by Brock Barajas MD Transcribed by Luisa Salcedo Authenticated and . [facility]
--- NOTE | 2025-02-07 08:49 | EXP.ANES.CKL ---
[facility] Disclaimer: The information contained in this section may have been updated after the patient was seen, as this information can be updated by other users. Medical History Orbital fracture Bronchitis Coronary artery disease Mixed hyperlipidemia LVH (left ventricular hypertrophy) Abnormal echocardiogram Hyperlipidemia ST elevation myocardial infarction (STEMI) of inferior wall CAD (coronary artery disease) Afib Synovial cyst of foot Broken tooth Encounter for immunization Contusion, lips Contusion of mouth Laceration of oral cavity Blister of great toe, left, infected Viral syndrome Hypertension Infected wound Patellar bursitis of left knee Strain of left knee Pain and swelling of left knee Surgical History History of hernia repair Family History Other Heart disease Social History Smoking Status: Never smoker alcohol intake: never substance use type: denies use current occupational status: retired Travel in the last 8 weeks?: None household members: spouse housing: house Have you lived/traveled outside US in past 30 days?: No Contact w/someone who lives/traveled outside US past 30 days?: No Exposure to someone with infectious disease in past 14 days?: No Do you have a fever (greater than 100.4 F or 38 C)?: No Have you tested positive for COVID-19?: No Exposed to someone with COVID-19 in past 14 days?: No Do you have a sore throat?: No Do you have a cough?: No Do you have any weakness?: No Are you experiencing any nausea/vomitting?: No Do you have any diarrhea?: No Are you experiencing any unusual bleeding?: No Do you have any muscle aches/pain?: No Do you have any abdominal pain?: No Are you experiencing loss of taste or smell?: No [facility] Anesthesia Checklist Patient Identification Patient Identification: Arm Band Structural Data Admitted From: Home Planned Operative Procedure/s: EGD/Colonoscopy Consent for Planned Operative Procedure(s) Verified: Yes Verified Documents: Surgical Consent and History and Physical NPO Status Verified Time NPO: 00:00 Additional verifications Anesthesia Reactions: No Airway Assessment Mallampati Score:: Class II C-Spine Mobility Assessed: Yes TMJ Mobility Assessed: Yes Dentition: Good Dentition Neurological Assessment Level of Consciousness: Awake, Alert and Appropriate Anesthesia Plan Anesthesia Risk discussed: Yes Anesthesia Plan: Verified ASA Class: III Anesthesia Type: MAC
[2025-02-07 09:52] LABS: Blood Urea Nitrogen 12 mg/dl (9-20); Creatinine Clearance Estimated 92 mL/min (50-200); Creatinine,Serum 0.90 mg/dl (0.66-1.25); Estimated Glomerular Filt Rate 82 ml/min (>60); GFR (African American) 99 ML/MIN (>60)
[2025-02-07] MEDS: SODIUM CHLORIDE 0.9% 10ML SYR (RAD ONLY) 10 ML IV (10:33)
[2025-02-07] MEDS: IOPAMIDOL-370 (76%);100ML BOTTLE 75 ML IV (10:33)
== END 2025-02-07 10:40 | disposition home or self-care (01) ==
PROVIDERS: PCP Internal Medicine; Visit Provider Internal Medicine Gastroenterology
PROC: 0DJ08ZZ Inspection of Upper Intestinal Tract, Via Natural or Artificial Opening Endoscopic (ICD-10-PCS; CPT 45378; principal; 2025-02-07 08:30)
DX: Z12.11 Encounter for screening for malignant neoplasm of colon (principal); D12.2 Benign neoplasm of ascending colon; D12.4 Benign neoplasm of descending colon; D12.5 Benign neoplasm of sigmoid colon; C15.5 Malignant neoplasm of lower third of esophagus; K57.30 Diverticulosis of large intestine without perforation or abscess without bleeding; K64.1 Second degree hemorrhoids; K92.1 Melena; K21.9 Gastro-esophageal reflux disease without esophagitis; K22.89 Other specified disease of esophagus; D62 Acute posthemorrhagic anemia; I25.10 Atherosclerotic heart disease of native coronary artery without angina pectoris; I48.91 Unspecified atrial fibrillation; I10 Essential (primary) hypertension; E78.2 Mixed hyperlipidemia; Z79.02 Long term (current) use of antithrombotics/antiplatelets
CPT/HCPCS: 43239; 43249; 45385; 36415; 71250; 74178; 82565; 82962; 84520; C1726; J2003; J2704; J7120; Q9967

== ENCOUNTER 2025-02-12 11:32 | Outpatient (CLI) | payer BC, SELFPAY ==
--- OUTSIDE RECORDS SUMMARY | 2025-02-12 11:35 | XMS_ITS | Clinical Summary ---
Author Organization [facility] Address [address] [place] [id number] Care Team Providers Care Building Supervisor Name Role Phone Sánchez Torres MD Primary Care Provider [phone] Allergies No known active allergies Medications Multiple [...] (12/02/2017): Added automatically from request for surgery [id number] Obesity due to excess calories 10/06/2017 Atrial [...] Type Department Care Team Description 12/10/2024 Refill [facility] [address] [facility] [address] [place] [address] Wagner Jones MD Med Refill from Last [...] Description 05/08/2025 10:30 AM EST Office Visit [facility] [address] [facility] [address] [place] [address] Wagner Jones MD [address] [facility] [address] [place] [address] Scheduled Procedures Name Priority Associated Diagnoses Date/Ti [...] series) 2022 COVID-19 Vaccine (2023-2 5 season) 2025 03/22/2024, 04/14/2023, 02/27/2022, Additional history exists INFLUENZA VACCINE 03/06/2025 03/22/2024, , 02/27/2022 Medical Devices Implanted Type Area Construction Quality Control Manager Device Identifier Shelf Expiration Date Model / Serial / Lot Appl Clip Savana Atriclip Pro2 40mm - [id number] Implanted:Qty: 1 on 01/02/2018 by Bucky Holland MD at [facility] Implant Heart ATRICURE 01/05/2020 [id number] / / [id number] Procedures Procedure Name Priority Date/Time Associated Diagnosis Comments HEMOGLOBIN A1C Routine 12/18/2017 12:05 PM EDT Atrial flutter, unspecified type from Last 3 Months or Most Recently Relevant to Health Maintenance Results * (ABNORMAL) Hemoglobin A1c (12/18/2017 12:05 PM EDT) Hemoglobin A1C 6.30(H) 4.80 - 5.60 % 12/18/2017 1:42 PM EDT [facility] Blood Venipuncture / Unknown 12/18/2017 12:05 PM EDT 12/18/2017 12:48 PM EDT Narrative [facility] - 12/18/2017 1:42 PM EDT The [place] [employer] recommends maintenance of Hemoglobin A1C at 7.0% or lower. Goals for Hemoglobin A1C reduction may need to be modified if hypoglycemia is a problem. us Becky Botello PA-C LAB BLOOD ORDERABLES Final R esult [facility]
[address] [place] [address], from Last 3 Months or Most Recently [...] Of Support Discussed With: Patient Care Teams Building Supervisor Relationship Specialty Start Date End Date Sánchez Torres MD [address] [facility] [address] [facility] [address] PCP - General 06/25/15
--- OUTSIDE RECORDS SUMMARY | 2025-02-12 11:35 | XMS_ITS | Clinical Summary ---
Author Organization [facility] Address [facility][note 3] [place] [id number] Care Team Providers Care Drilling Engineering Manager Name Role Phone Sánchez Torres MD Primary Care Provider [phone] Allergies No known active allergies Medications metoprolol [...] [facility]-Depression Screening 1947 [facility]-Hepatitis C Screening 1947 [facility]-Infant/Child/Adol SDOH Screenings 1947 Diabetes: Dental Exam 1957 [facility]- SDOH Screenings 1965 [facility]-Adult SDOH Screenings 1965 [facility]-DTaP,Tdap,and Td Vaccines (1 - Tdap) 1966 [facility]-Zoster Vaccines (1 of 2) 1997 [facility]-Diabetes: Hemoglobin A1C 06/17/2018 12/18/2017, 08/01/2017 [facility]-Pneumococcal Vaccine: 50+ Years (2 of 2 - PCV) 01/03/2019 01/03/2018 [facility]-RSV Vaccine: 60+ Years or (1 - 1-dose 75+ series) 2022 [id number] Vaccine (5 - season) 2025 02/27/2022, 03/05/2021, 07/11/2020, Additional history exists [facility]-Influenza [...] age to complete this topic Insurance MEDICARE [facility] Care Teams Drilling Engineering Manager Relationship Specialty Start Date End Date Sánchez Torres MD [address] [facility] [address] [place] [id number] PCP - General 02/15/22
[2025-02-12 12:47] LABS: Hematocrit 41.7 % (42.0-52.0); Hemoglobin 13.6 g/dL (14.1-18.0); Immature Granulocytes % 0.4 %; Mean Corpuscular HGB Conc 32.6 g/dL (31.8-35.4); Mean Corpuscular Hemoglobin 30.2 pg (27.0-31.2); Mean Corpuscular Volume 92.5 fl (80-94); Nucleated Red Blood Cells % 0 %; Platelet Count 311 K/mm3 (142-424); Red Blood Count 4.51 M/mm3 (4.60-6.20); Red Cell Distribution Width-SD 44.6 fL; White Blood Count 12.5 K/mm3 (4.8-10.8)
[2025-02-12 13:00] LABS: Albumin Level 4.1 g/dl (3.5-5.0); Chloride 100 mmol/L (98-107); Potassium 4.7 mmoL/L (3.5-5.1); Sodium 137 mmol/L (136-145)
[2025-02-12 13:03] LABS: Alanine Aminotransferase 22 U/L (12-78); Albumin/Globulin Ratio 1.6 (1.1-1.8); Alkaline Phosphatase 60 U/L (38-126); Anion Gap 13.7 mEq/L (5-15); Aspartate Amino Transferase 30 U/L (17-59); Bilirubin,Total 0.7 mg/dl (0.2-1.3); Blood Urea Nitrogen 13 mg/dl (9-20); Carbon Dioxide 28 mmol/L (22.0-30.0); Creatinine,Serum 0.70 mg/dl (0.66-1.25); Estimated Glomerular Filt Rate 109 ml/min (>60); GFR (African American) 132 ML/MIN (>60); Globulin 2.6 g/dL (1.3-3.2); Iron 88 ug/dL (49-181); Total Protein,Serum 6.7 g/dl (6.3-8.2)
[2025-02-12 13:04] LABS: Calcium 9.1 mg/dl (8.4-10.2); Glucose 100 mg/dl (74-100)
[2025-02-12 13:13] LABS: Total Iron Binding Capacity 310 ug/dL (261-462)
[2025-02-12 13:39] LABS: Ferritin 30.2 ng/ml (17.9-464)
== END 2025-02-12 23:59 | disposition home or self-care (01) ==
LOC: LAB 11:33
PROVIDERS: PCP Internal Medicine; Visit Provider Internal Medicine Medical Oncology
DX: D72.829 Elevated white blood cell count, unspecified (principal); R93.3 Abnormal findings on diagnostic imaging of other parts of digestive tract
CPT/HCPCS: 36415; 80053; 82728; 83540; 83550; 85025

== ENCOUNTER 2025-03-19 09:50 | Outpatient (CLI) | payer BC, SELFPAY ==
--- OUTSIDE RECORDS SUMMARY | 2025-02-28 08:45 | XMS_ITS | Encounter Summary ---
Author Organization [facility] Address [address] [place] [address] Care Team Providers Care Voice Coach Name Role Phone Sánchez Torres MD Primary Care Provider [phone] Reason for Visit * Reason Comments New Patient * Consultation (Routine) - Closed Specialty Diagnoses / Procedures Referred By Paulette t Referred To Contact Cardiothoracic Surgery Diagnoses Esophageal adenocarcinoma Hever Conley MD [address] [place] [id number] Phone: tel: fax: Cardiothoracic Surgery [address] [place] [address] Phone: tel:[phone] Referral ID Status Reason Start Date Expiration Date V isits Requested Visits Authorized [id number] Closed Specialty Services Required 02/22/2025 08/24/2026 1 1 Encounter Details Date Type Department Care Team ([facility] Contact Info) Description 02/28/2025 8:45 AM EDT Office Visit Pav CC Head, Neck & Respiratory [address] [facility], 2nd [place] [address] Jewel Ojeda, DO [address] [facility] [address] [place] [address] Malignant neoplasm of lower third of esophagus [...] from the original note were not included. [facility] Department of Surgery Section of [...] documented as of this encounter Care Teams Voice Coach Relationship Specialty Start Date End Date Sánchez Torres MD [address] [place] [address] [address] [place] [address] PCP - General 02/15/22 documented as of this encounter
[2025-03-19] VITALS (8 sets, daily range): BP systolic 149–175; BP diastolic 77–100; PULSE 61–76; RESP 18; O2SAT 99–100
--- OUTSIDE RECORDS SUMMARY | 2025-03-19 09:59 | XMS_ITS | Encounter Summary ---
Author Organization [facility] Address [address] [id number] Care Team Providers Care Inbound Customer Service Agent Name Role Phone Sánchez Torres MD Primary Care Provider [phone] Encounter Details Date Type Department Care Team (Late st Contact Info) Description 11/21/2024 Orders Only External Location [address] [place] [address] Provider, External Social History Tobacco Use Types Packs/Day Years [...] as of this encounter Plan of Treatment Not on file documented as of this encounter Procedures Procedure Name Priority Date/Time Associated Diagnosis Comments US OUTSIDE IMAGES 11/21/2024 6:08 AM EDT documented in this encounter Results * US OUTSIDE IMAGES (11/21/2024 6:08 AM EDT) Anatomical Region Laterality Modality Ultrasound 11/21/2024 6:08 AM EDT us External Provider IMG US PROCEDURES Edited Resul t - Final documented in this encounter Visit Diagnoses Not on filedocumented in this encounter Additional Health Concerns Assessment Noted Time A fall risk assessment has been complete d for the patient 05/24/2022 10:42 AM EST documented as of this encounter Care Teams Inbound Customer Service Agent Relationship Specialty Start Date End Date Sánchez Torres MD [address] [facility] [address] [place] [address] PCP - General 02/15/22 documented as of this encounter
--- OUTSIDE RECORDS SUMMARY | 2025-03-19 09:59 | XMS_ITS | Encounter Summary ---
Author Organization [facility] Address [address] [place] [address] Care Team Providers Care Torch Operator Name Role Phone Sánchez Torres MD Primary Care Provider [phone] Encounter Details Date Type Department Care Team (Late st Contact Info) Description 02/07/2025 Orders Only External Location [address] [place] [address] Provider, External Social History Tobacco Use Types [...] Procedure Name Priority Date/Time Associated Diagnosis Comments CT MSK OUTSIDE IMAGES 02/07/2025 10:18 AM EDT documented in this encounter Results * CT MSK OUTSIDE IMAGES (02/07/2025 10:18 AM EDT) Anatomical Region Laterality Modality Computed Tomogra phy 02/07/2025 10:1 8 AM EDT us External Provider IMG CT PROCEDURES Edited Resul t - Final documented in this encounter Visit Diagnoses Not on filedocumented in this encounter Additional Health Concerns Assessment Noted Time A fall risk assessment has been complete d for the patient 05/24/2022 10:42 AM EST documented as of this encounter Care Teams Torch Operator Relationship Specialty Start Date End Date Sánchez Torres MD [address] [place] [address] PCP - General 02/15/22 documented as of this encounter
--- OUTSIDE RECORDS SUMMARY | 2025-03-19 09:59 | XMS_ITS | Encounter Summary ---
Author Organization [facility] Address [address] [id number] Care Team Providers Care Cocoa Bean Roaster Helper Name Role Phone Sánchez Torres MD Primary Care Provider [phone] Encounter Details Date Type Department Care Team (Late st Contact Info) Description 01/01/2025 Orders Only External Location [address] [place] [address] Provider, External Social History Tobacco Use Types [...] Name Priority Date/Time Associated Diagnosis Comments CT THORACIC OUTSIDE IMAGES 01/01/2025 8:51 AM EDT documented in this encounter Results * CT THORACIC OUTSIDE IMAGES (01/01/2025 8:51 AM EDT) Anatomical Region Laterality Modality Computed Tomogra phy 01/01/2025 8:51 AM EDT us External Provider IMG CT PROCEDURES Edited Resul t - Final documented in this encounter Visit Diagnoses Not on filedocumented in this encounter Additional Health Concerns Assessment Noted Time A fall risk assessment has been complete d for the patient 05/24/2022 10:42 AM EST documented as of this encounter Care Teams Cocoa Bean Roaster Helper Relationship Specialty Start Date End Date Sánchez Torres MD [address] [place] [address] PCP - General 02/15/22 documented as of this encounter
--- OUTSIDE RECORDS SUMMARY | 2025-03-19 09:59 | XMS_ITS | Encounter Summary ---
Author Organization [facility] Address [address] [place] [address] Care Team Providers Care Dining Room Hostess Name Role Phone Sánchez Torres MD Primary Care Provider [phone] Encounter Details Date Type Department Care Team (Late st Contact Info) Description 01/02/2025 Orders Only External Location [address] [place] [address] Provider, External Social History Tobacco Use Types [...] Procedure Name Priority Date/Time Associated Diagnosis Comments XR OUTSIDE IMAGES 01/02/2025 9:44 AM EDT documented in this encounter Results * XR OUTSIDE IMAGES (01/02/2025 9:44 AM EDT) Anatomical Region Laterality Modality Radiographic Erica ging 01/02/2025 9:44 AM EDT us External Provider IMG XR PROCEDURES Edited Resul t - Final documented in this encounter Visit Diagnoses Not on filedocumented in this encounter Additional Health Concerns Assessment Noted Time A fall risk assessment has been complete d for the patient 05/24/2022 10:42 AM EST documented as of this encounter Care Teams Dining Room Hostess Relationship Specialty Start Date End Date Sánchez Torres MD [address] [facility] [address] [place] [address] PCP - General 02/15/22 documented as of this encounter
--- OUTSIDE RECORDS SUMMARY | 2025-03-19 09:59 | XMS_ITS | Encounter Summary ---
Author Organization [facility] Address [address] [place] [address] Care Team Providers Care Collection Development Librarian Name Role Phone Sánchez Torres MD Primary Care Provider [phone] Encounter Details Date Type Department Care Team (Late st Contact Info) Description 02/20/2025 Orders Only External Location [address] [place] [address] Provider, External Social History Tobacco Use Types [...] Name Priority Date/Time Associated Diagnosis Comments CT NEURO OUTSIDE IMAGES 02/20/2025 10:07 AM EDT documented in this encounter Results * CT NEURO OUTSIDE IMAGES (02/20/2025 10:07 AM EDT) Anatomical Region Laterality Modality Computed Tomogra phy 02/20/2025 10:0 7 AM EDT us External Provider IMG CT PROCEDURES Edited Resul t - Final documented in this encounter Visit Diagnoses Not on filedocumented in this encounter Additional Health Concerns Assessment Noted Time A fall risk assessment has been complete d for the patient 05/24/2022 10:42 AM EST documented as of this encounter Care Teams Collection Development Librarian Relationship Specialty Start Date End Date Sánchez Torres MD [address] [place] [address] PCP - General 02/15/22 documented as of this encounter
--- OUTSIDE RECORDS SUMMARY | 2025-03-19 09:59 | XMS_ITS | Encounter Summary ---
Author Organization [facility] Address [address] [place] [address] Care Team Providers Care Briar Shop Supervisor Name Role Phone Sánchez Torres MD Primary Care Provider [phone] Encounter Details Date Type Department Care Team (Late st Contact Info) Description 02/07/2025 Orders Only External Location [address] [place] [address] Provider, External Social History Tobacco Use Types [...] Associated Diagnosis Comments CT THORACIC OUTSIDE IMAGES 02/07/2025 10:15 AM EDT documented in this encounter Results * CT THORACIC OUTSIDE IMAGES (02/07/2025 10:15 AM EDT) Anatomical Region Laterality Modality Computed Tomogra phy 02/07/2025 10:1 5 AM EDT us External Provider IMG CT PROCEDURES Edited Resul t - Final documented in this encounter Visit Diagnoses Not on filedocumented in this encounter Additional Health Concerns Assessment Noted Time A fall risk assessment has been complete d for the patient 05/24/2022 10:42 AM EST documented as of this encounter Care Teams Briar Shop Supervisor Relationship Specialty Start Date End Date Sánchez Torres MD [address] [place] [address] PCP - General 02/15/22 documented as of this encounter
--- OUTSIDE RECORDS SUMMARY | 2025-03-19 09:59 | XMS_ITS | Encounter Summary ---
Author Organization [facility] Address [address] [place] [address] Care Team Providers Care Assurance Auditor Name Role Phone Sánchez Torres MD Primary Care Provider Encounter Details Date Type Department Care Team (Late st Contact Info) Description 11/20/2024 Orders Only External Location [address] [place] [address] Provider, External Social History Tobacco Use Types [...] Procedure Name Priority Date/Time Associated Diagnosis Comments IR OUTSIDE IMAGES 11/20/2024 5:15 PM EDT documented in this encounter Results * IR OUTSIDE IMAGES (11/20/2024 5:15 PM EDT) Anatomical Region Laterality Modality X-Ray Angiograph y 11/20/2024 5:15 PM EDT us External Provider IMG IR PROCEDURES Edited Resul t - Final documented in this encounter Visit Diagnoses Not on filedocumented in this encounter Additional Health Concerns Assessment Noted Time A fall risk assessment has been complete d for the patient 05/24/2022 10:42 AM EST documented as of this encounter Care Teams Assurance Auditor Relationship Specialty Start Date End Date Sánchez Torres MD [address] [facility] [address] [place] [address] PCP - General 02/15/22 documented as of this encounter
--- OUTSIDE RECORDS SUMMARY | 2025-03-19 09:59 | XMS_ITS | Encounter Summary ---
Author Organization [facility] Address [address] [place] [address] Care Team Providers Care Cat Dog Or Other Pet Groomer Name Role Phone Sánchez Torres MD Primary Care Provider [phone] Encounter Details Date Type Department Care Team (Late st Contact Info) Description 11/20/2024 Orders Only External Location [address] [place] [address] Provider, External Social History Tobacco Use Types [...] Date/Time Associated Diagnosis Comments XR OUTSIDE IMAGES 11/20/2024 3:30 PM EDT documented in this encounter Results * XR OUTSIDE IMAGES (11/20/2024 3:30 PM EDT) Anatomical Region Laterality Modality Radiographic Erica ging 11/20/2024 3:30 PM EDT us External Provider IMG XR PROCEDURES Edited Resul t - Final documented in this encounter Visit Diagnoses Not on filedocumented in this encounter Additional Health Concerns Assessment Noted Time A fall risk assessment has been complete d for the patient 05/24/2022 10:42 AM EST documented as of this encounter Care Teams Cat Dog Or Other Pet Groomer Relationship Specialty Start Date End Date Sánchez Torres MD [address] [facility] [address] [place] [address] PCP - General 02/15/22 documented as of this encounter
--- OUTSIDE RECORDS SUMMARY | 2025-03-19 09:59 | XMS_ITS | Encounter Summary ---
Author Organization [facility] Address [address] [id number] Care Team Providers Care Ventilation Mechanic Name Role Phone Sánchez Torres MD Primary Care Provider [phone] Encounter Details Date Type Department Care Team (Late st Contact Info) Description 02/25/2025 Lab Requisition [facility] [address] [place] [address] Tatiana Myrick MD [address] [facility] [address] [place] [address] Dysphagia, unspecified Social History Tobacco Use Types Packs/Day Years [...] on file documented as of this encounter Functional Status * Calculated C-SSRS Risk Score (Lifetime/Recent) Answer Date of Assessment Author No Risk Indicated 02/28/2025 8:54 AM JESSICAT Ana María Lujan * Question Answer Date of Assessment Author 1. Wish to be (Past 1 Month) No 025 8:54 AM JESSICAT Ana María Lujan 2. Non-Specific Active Suici carlos Thoughts (Past 1 Month) No 02/28/2025 8:54 AM EDT Leti Lujan 6. Suicidal Behavior (Lifetime) No 8:54 AM Ana María [place] documented as of this encounter Plan of Treatment Not on file documented as of this encounter Procedures Procedure Name Priority Date/Time Associated Diagnosis Comments SURGICAL PATHOLOGY CONSULT Routine 02/25/2025 2:23 PM EDT Dysphagia, unspecified documented in this encounter Results * Surgical Pathology Consult (02/25/2025 2:23 PM EDT) Case Report Sugical Pathology Consult Case: [id number] Authorizing Provider: Tatiana Myrick MD Collected: 02/25/20253 Ordering Location: [facility] Lab Received: 02/25/2025 1423 Pathologist: Janell Bhatti MD Specimen: Esophagus, [id number] 02/25/2025 3:02 PM EDT [facility] Final Diagnosis ESOPHAGUS, DISTAL, BIOPSY ([id number]; 02/07/2025): - INVASIVE MODERATELY DIFFERENTIATED ADENOCARCINOMA (SEE COMMENT). 02/25/2025 3:02 PM EDT [facility] at 1502 EDT Comment Per pathology report ) 1) IHC for HER-2/yessica: negative (score of 0) 2) Immunohistochemical stains for MMR proteins: retained nuclear immunoreaction for all 4 proteins (MLH-1, MSH-2, MSH-6, and PMS-2). 3) PD-L1 combined positive score: <1 4) CLDN18 (43-14a): positive (>95% of tumor cells) 02/25/2025 3:02 PM EDT [facility] Clinical Information R13.10 - Dysphagia, unspecified [ICD-10-CM] 02/25/2025 3:02 PM EDT [facility] Gross Description A. [id number] Received along with a corresponding pathology report from [facility] are 12 slides labeled outside case: [id number] collected on 02/07/2025. 02/25/2025 3:02 PM EDT [facility] Note: A resident was involved in the service. I attest I examined the relevant preparations for the specimens and confirmed the diagnosis or interpretation. 02/25/2025 3:02 PM EDT [facility] Tissue Esophageal structure / Unknown 02/25/2025 2:23 PM EDT 02/25/2025 2:23 PM EDT us Tatiana Myrick MD LAB PATHOLOGY ORDERABLES Final Result [facility] [address] [place] [address] documented in this encounter Visit Diagnoses Diagnosis Dysphagia, unspecified documented in this encounter Additional Health Concerns Assessment Noted Time A fall risk assessment has been complete d for the patient 05/24/2022 10:42 AM EST documented as of this encounter Care Teams Ventilation Mechanic Relationship Specialty Start Date End Date Sánchez Torres MD [address] [place] [address] [address] [place] [address] PCP - General 02/15/22 documented as of this encounter
--- OUTSIDE RECORDS SUMMARY | 2025-03-19 09:59 | XMS_ITS | Clinical Summary ---
Author Organization [facility] Address [address] [place] [id number] Care Team Providers Care Web Assistant Name Role Phone Sánchez Torres MD Primary Care Provider [phone] Allergies No known active allergies Medications Multiple [...] (12/02/2017): Added automatically from request for surgery [id number] Obesity due to excess calories 10/06/2017 Atrial [...] per minute. Normal axis and intervals. Hypertension Immunizations Immunization Administration Dates Next Due Pneumococcal [...] Description 05/08/2025 10:30 AM EST Office Visit [facility] [address] [facility] [address] [place] [address] Wagner Jones MD [address] [facility] [address] [address] [place] [address] Scheduled Procedures Name Priority Associated Diagnoses Date/Ti [...] C SCREENING 10/27/2016 HEMOGLOBIN A1C 06/20/2018 12/18/2017, 02/2 11/2017, 10/14/2013, Additional history exists Pneumococcal Vaccine 50+ (2 of 2 - PCV) 01/03/2019 01/03/2018 RSV Vaccine - Adults (1 - 1- dose 75+ series) 2022 INFLUENZA VACCINE 01/04/2025 03/22/2024, , 02/27/2022 COVID-19 Vaccine (2023-2 5 season) 2025 03/22/2024, 04/14/2023, 02/27/2022, Additional history exists Medical Devices Implanted Type Area Lapeler Device Identifier Shelf Expiration Date Model / Serial / Lot Appl Clip Savana Atriclip Pro2 40mm - [id number] Implanted:Qty: 1 on 01/02/2018 by Bucky Holalnd MD at [facility] Implant Heart ATRICURE 01/05/2020 [id number] / [id number] Procedures Procedure Name Priority Date/Time Associated Diagnosis Comments HEMOGLOBIN A1C Routine 12/18/2017 12:05 PM EDT Atrial flutter, unspecified type from Last 3 Months or Most Recently Relevant to Health Maintenance Results * (ABNORMAL) Hemoglobin A1c (12/18/2017 12:05 PM EDT) Hemoglobin A1C 6.30(H) 4.80 - 5.60 % 12/18/2017 1:42 PM EDT [facility] Blood Venipuncture / Unknown 12/18/2017 12:05 PM EDT 12/18/2017 12:48 PM EDT Narrative [facility] - 12/18/2017 1:42 PM EDT The [place] [employer] recommends maintenance of Hemoglobin A1C at 7.0% or lower. Goals for Hemoglobin A1C reduction may need to be modified if hypoglycemia is a problem. us Becky Botello PA-C LAB BLOOD ORDERABLES Final R esult [facility]
[address] [place] [address], from Last 3 Months or Most Recently Relevant to Health Maintenance Insurance [employer] Member Subscriber Plan / Payer (Ef fective 2015-Present) Name:Hever Lemos Relation to Subscriber:Self Name:Hever Lemos Payer ID:[id number] (NAIC) Group ID:[id number] Type:Not on file Address: [address] [place] [id number] MEDICARE A ONLY Advance Directives * CPR (Attempt to Resuscitate) (Latest Code Status on File) Date Activated Date Inactivated Comments 01/02/2018 10:29 AM 01/03/2018 4:22 PM Question Answer Comments Code Status (Patient has no pulse and is not breathing): CPR (Attempt to Resuscitate) Medical Interventions (Patie nt has pulse or is breathing): Full Level Of Support Discussed With: Patient Care Teams Web Assistant Relationship Specialty Start Date End Date Sánchez Torres MD [address] [facility] [address] [place] [address] PCP - General 06/25/15
--- OUTSIDE RECORDS SUMMARY | 2025-03-19 09:59 | XMS_ITS | Encounter Summary ---
Author Organization [facility] Address [address] [phone] Care Team Providers Care Dioramist Name Role Phone Sánchez Torres MD Primary Care Provider [phone] Encounter Details Date Type Department Care Team (Late st Contact Info) Description 01/09/2025 Orders Only External Location [address] [place] [address] Gus Dee PA [address] [id number] Social History Tobacco Use Types Packs/Day Years [...] Procedure Name Priority Date/Time Associated Diagnosis Comments MR ABDOMEN OUTSIDE IMAGES 01/09/2025 10:56 AM EDT documented in this encounter Results * MR ABDOMEN OUTSIDE IMAGES (01/09/2025 10:56 AM EDT) Anatomical Region Laterality Modality Magnetic Resonan ce 01/09/2025 10:5 6 AM EDT Gus SNOW IMG MRI PROCEDURES Edited Resu lt - Final documented in this encounter Visit Diagnoses Not on filedocumented in this encounter Additional Health Concerns Assessment Noted Time A fall risk assessment has been complete d for the patient 05/24/2022 10:42 AM EST documented as of this encounter Care Teams Dioramist Relationship Specialty Start Date End Date Sánchez Torres MD [address] [facility] [address] [place] [address] PCP - General 02/15/22 documented as of this encounter
--- OUTSIDE RECORDS SUMMARY | 2025-03-19 09:59 | XMS_ITS | Encounter Summary ---
Author Organization [facility] Address [facility] [address] [place] [id number] Care Team Providers Care Repair Coil Winder Name Role Phone Sánchez Torres MD Primary Care Provider [phone] Encounter Details Date Type Department Care Team (Latest Contact Info) Description 02/28/2025 Travel Social History Tobacco Use Types Packs/Day Years [...] No 02/28/2025 8:54 AM EDT Leti Lujan M 6. Suicidal Behavior (Lifetime) No 8:54 AM EDT Ana María Lujan documented as of this encounter Plan of [...] documented as of this encounter Care Teams Repair Coil Winder Relationship Specialty Start Date End Date Sánchez Torres MD [address] [facility] [address] [place] [id number] PCP - General 02/15/22 documented as of this encounter
--- OUTSIDE RECORDS SUMMARY | 2025-03-19 09:59 | XMS_ITS | Encounter Summary ---
Author Organization [facility] Address [address] [place] [address] Care Team Providers Care Outside Sales Representative Insurance Name Role Phone Sánchez Torres MD Primary Care Provider [phone] Encounter Details Date Type Department Care Team (Late st Contact Info) Description 01/23/2024 Orders Only External Location [address] [place] [address] Provider, External Social History Tobacco Use Types [...] Name Priority Date/Time Associated Diagnosis Comments XR MSK OUTSIDE IMAGES 01/23/2024 11:03 AM EDT documented in this encounter Results * XR MSK OUTSIDE IMAGES (01/23/2024 11:03 AM EDT) Anatomical Region Laterality Modality Radiographic Erica ging 01/23/2024 11:0 3 AM EDT us External Provider IMG XR PROCEDURES Edited Resul t - Final documented in this encounter Visit Diagnoses Not on filedocumented in this encounter Additional Health Concerns Assessment Noted Time A fall risk assessment has been complete d for the patient 05/24/2022 10:42 AM EST documented as of this encounter Care Teams Outside Sales Representative Insurance Relationship Specialty Start Date End Date Sánchez Torres MD [address] [place] [address] PCP - General 02/15/22 documented as of this encounter
--- OUTSIDE RECORDS SUMMARY | 2025-03-19 09:59 | XMS_ITS | Encounter Summary ---
Author Organization [facility] Address [address] [place] [address] Care Team Providers Care Mold Yard Worker Name Role Phone Sánchez Torres MD Primary Care Provider [phone] Reason for Visit * Reason Onset Date Comments STEFANO Nurse Liaison call 03/01/2025 Encounter Details Date Type Department Care Team (Late st Contact Info) Description 03/01/2025 Telephone Pav CC Head, Neck & Respiratory [address] [facility], 2nd [place] [address] Michelle Castellanos [place] [id number] STEFANO Nurse Liaison call Social History Tobacco Use Types Packs/Day Years [...] on file documented as of this encounter Miscellaneous Notes * Telephone Encounter - Michelle Castellanos - 03/01/2025 2:15 PM EDT Patient Name: Hever Lemos : 1945 Date: 03/01/25 Referred to [facility] by: Dr. Hever Conley Affiliate Site: [facility] Services Provided: Pre/Post Appointment Phone Call Educated On: STEFANO Nurse Liaison/Psych Oncology Services Patient was referred to [facility] by his local medical oncologist. STEFANO Nurse Liaison contacted the patient for a post appointment phone call. Explained liaison services as well as other resources at [facility] including those available through Psych Oncology services, such as social workers and financial counselors. Patient states understanding of information. Patient has liaison contact information and was encouraged to call with any questions, needs or concerns. Mr. Lemos said his appt with Dr. Ojeda went well and that he will see Dr. Conley on 03/07. No needs at this time. [facility] Nurse Liaison documented in this encounter Plan of Treatment [...] documented as of this encounter Care Teams Mold Yard Worker Relationship Specialty Start Date End Date Sánchez Torres MD [address] [place] [address] [address] [place] [address] PCP - General 02/15/22 documented as of this encounter
--- OUTSIDE RECORDS SUMMARY | 2025-03-19 09:59 | XMS_ITS | Clinical Summary ---
Author Organization [facility] Address [address] [place] [address] Care Team Providers Care Machine Etcher Name Role Phone Sánchez Torres MD Primary Care Provider [phone] Allergies No known active allergies Medications metoprolol [...] 1 (one) time each day. 03/31/2022 Active atorvastatin (Lipitor) 40 MG tablet Take 1 tablet by mouth nightly. Active clopidogrel (Plavix) 75 MG tablet daily. 11/22/2024 Active famotidine (Pepcid) 40 MG tablet 2 times a day. 11/28/2024 Active losartan (Cozaar) 50 MG tablet Take 1 tablet by mouth daily. Active nitroglycerin (Nitrostat) 0.4 MG SL tablet 1 tablet. 12/26/2024 Active pantoprazole (Protonix) 40 MG EC tablet daily. 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 02/15/2022 Acquired hallux valgus 02/15/2022 Diabetic neuropathy associat ed with type 2 diabetes mellitus 02/15/2022 Ulcer of toe of left foot, with fat layer expose d 02/15/2022 Encounters Date Type Department Care Team Description 03/01/2025 Telephone Pav [facility] Head, Neck & Respiratory [address] [place] [address] Michelle Castellanos Nurse Liaison call 02/28/2025 8:45 AM EDT Office Visit Pav [facility] Head, Neck & Respiratory [address] Jewel Ojeda D, DO Malignant neoplasm of lower third of esophagus (CMS/HCC) (Primary Dx); Obesity (BMI 35.0-39.9 without comorbidity) 02/28/2025 Travel 02/25/2025 Lab Requisition [facility] [address] Tatiana Myrick MD Dysphagia, unspecified 02/20/2025 Orders Only External Location [address] [place] [address] Provider, External 02/07/2025 Orders Only External Location [address] [place] [address] Provider, External 02/07/2025 Orders Only External Location [address] [place] [address] Provider, External 01/09/2025 Orders Only External Location [address] [place] [address] Gus Dee PA 01/02/2025 Orders Only External Location [address] [place] [address] Provider, External 01/01/2025 Orders Only External Location [address] [place] [address] Provider, External from Last 3 Months Family History Medical History Relation Name Comments [...] Mass Index 31.93 02/28/2025 8:56 AM EDT Plan of Treatment Health Maintenance Due Date Last Done Comments [facility]-Depression Screening 1945 [facility]-Hepatitis C Screening 1945 [facility]-Infant/Child/Adol SDOH Screenings 1945 Diabetes: Dental Exam 1957 [facility]- SDOH Screenings 1965 [facility]-Adult SDOH Screenings 1965 [facility]-Zoster Vaccines (1 of 2) 1966 [facility]-Diabetes: Hemoglobin A1C 06/17/2018 12/18/2017, 08/01/2017 [facility]-Pneumococcal Vaccine: 50+ Years (2 of 2 - PCV) 01/03/2019 01/03/2018 [facility]-RSV Vaccine: 60+ Years or (1 - 1-dose 75+ series) 2022 [id number] Vaccine (7 - Moderna risk season) 2025 03/22/2024, 04/14/2023, 02/27/2022, Additional history exists [facility]-Influenza Vaccine (#1) 02/04/202503/22, 03/05/2023, 02/27/2022 [facility]-DTaP,Tdap,and Td Vaccines (2 - Td or Tdap) 10/16/2034 10/16/2024 [facility]-Obesity Intervention Completed 025, 05/24/2022, 04/19/2022, Additional history exists HPV Vaccines Aged Out [...] on patient's age to complete this topic Procedures Procedure Name Priority Date/Time Associated Diagnosis Comments SURGICAL PATHOLOGY CONSULT Routine 02/25/2025 2:23 PM EDT Dysphagia, unspecified CT NEURO OUTSIDE IMAGES 02/20/2025 10:[address] MSK OUTSIDE IMAGES 02/07/2025 10:[address] THORACIC OUTSIDE IMAGES 02/07/2025 10:15 AM EDT MR ABDOMEN OUTSIDE IMAGES 01/09/2025 10:56 AM EDT XR OUTSIDE IMAGES 01/02/2025 9:[address] THORACIC OUTSIDE IMAGES 01/01/2025 8:51 AM EDT from Last 3 Months Results * Surgical Pathology Consult (02/25/2025 2:23 PM EDT) Case Report Sugical Pathology Consult Case: [id number] Authorizing Provider: Tatiana Myrick MD Collected: 02/25/20251422 Ordering Location: [facility] Received: 02/25/2025 1423 Pathologist: Janell Bhatti MD Specimen: Esophagus, [id number] 02/25/2025 3:[address] [facility] Final Diagnosis ESOPHAGUS, DISTAL, BIOPSY ([id number]; 02/07/2025): - INVASIVE MODERATELY DIFFERENTIATED ADENOCARCINOMA (SEE COMMENT). 02/25/2025 3:[address] [facility] at 1502 EDT Comment Per pathology report ) 1) IHC for HER-2/yessica: negative (score of 0) 2) Immunohistochemical stains for MMR proteins: retained nuclear immunoreaction for all 4 proteins (MLH-1, MSH-2, MSH-6, and PMS-2). 3) PD-L1 combined positive score: <1 4) CLDN18 (43-14a): positive (>95% of tumor cells) 02/25/2025 3:02 PM EDT [facility] Clinical Information R13.10 - Dysphagia, unspecified [ICD-10-CM] 02/25/2025 3:[address] [facility] Gross Description A. [id number] Received along with a corresponding pathology report from [facility] are 12 slides labeled outside case: [id number] collected on 02/07/2025. 02/25/2025 3:[address] [facility] Note: A resident was involved in the service. I attest I examined the relevant preparations for the specimens and confirmed the diagnosis or interpretation. 02/25/2025 3:02 PM EDT [facility] Tissue Esophageal structure / Unknown 02/25/2025 2:23 PM EDT 02/25/2025 2:23 PM EDT us Tatiana Myrick MD LAB PATHOLOGY ORDERABLES Final Result [facility] [address] [place] [address] * CT NEURO OUTSIDE IMAGES (02/20/2025 10:07 AM EDT) Anatomical Region Laterality Modality Computed Tomogra phy 02/20/2025 10:0 7 AM EDT us External Provider IMG CT PROCEDURES Edited Resul t - Final * CT MSK OUTSIDE IMAGES (02/07/2025 10:18 AM EDT) Anatomical Region Laterality Modality Computed Tomogra phy 02/07/2025 10:1 8 AM EDT us External Provider IMG CT PROCEDURES Edited Resul t - Final * CT THORACIC OUTSIDE IMAGES (02/07/2025 10:15 AM EDT) Only the most recent of2 resultswithin the time period is included. Anatomical Region Laterality Modality Computed Tomogra phy 02/07/2025 10:1 5 AM EDT us External Provider IMG CT PROCEDURES Edited Resul t - Final * MR ABDOMEN OUTSIDE IMAGES (01/09/2025 10:56 AM EDT) Anatomical Region Laterality Modality Magnetic Resonan ce 01/09/2025 10:5 6 AM EDT us Gus SNOW IMG MRI PROCEDURES Edited Resu lt - Final * XR OUTSIDE IMAGES (01/02/2025 9:44 AM EDT) Anatomical Region Laterality Modality Radiographic Erica ging 01/02/2025 9:44 AM EDT us External Provider IMG XR PROCEDURES Edited Resul t - Final from Last 3 Months Insurance MEDICARE [facility] Care Teams Machine Etcher Relationship Specialty Start Date End Date Sánchez Torres MD [address] [place] [address] PCP - General 02/15/22
[2025-03-19 10:17] LABS: Albumin Level 3.8 g/dl (3.5-5.0); Chloride 100 mmol/L (98-107); Sodium 135 mmol/L (136-145)
[2025-03-19 10:18] LABS: Potassium 4.2 mmoL/L (3.5-5.1)
[2025-03-19 10:19] LABS: Hematocrit 40.5 % (42.0-52.0); Hemoglobin 13.2 g/dL (14.1-18.0); Immature Granulocytes % 0.2 %; Mean Corpuscular HGB Conc 32.6 g/dL (31.8-35.4); Mean Corpuscular Hemoglobin 29.3 pg (27.0-31.2); Mean Corpuscular Volume 89.8 fl (80-94); Nucleated Red Blood Cells % 0 %; Platelet Count 284 K/mm3 (142-424); Red Blood Count 4.51 M/mm3 (4.60-6.20); Red Cell Distribution Width-SD 42.5 fL; White Blood Count 12.3 K/mm3 (4.8-10.8)
[2025-03-19 10:20] LABS: Alanine Aminotransferase 26 U/L (12-78); Anion Gap 13.2 mEq/L (5-15); Aspartate Amino Transferase 28 U/L (17-59); Blood Urea Nitrogen 12 mg/dl (9-20); Carbon Dioxide 26 mmol/L (22.0-30.0); Creatinine,Serum 0.70 mg/dl (0.66-1.25); Estimated Glomerular Filt Rate 109 ml/min (>60); GFR (African American) 132 ML/MIN (>60)
[2025-03-19 10:21] LABS: Albumin/Globulin Ratio 1.2 (1.1-1.8); Alkaline Phosphatase 74 U/L (38-126); Bilirubin,Total 0.7 mg/dl (0.2-1.3); Calcium 8.5 mg/dl (8.4-10.2); Globulin 3.1 g/dL (1.3-3.2); Glucose 114 mg/dl (74-100); Total Protein,Serum 6.9 g/dl (6.3-8.2)
[2025-03-19] MEDS: ONDANSETRON 4MG ODT 16 MG (10:59)
[2025-03-19] MEDS: LORATADINE 10MG TABLET 10 MG PO (11:00)
[2025-03-19] MEDS: DEXAMETHASONE 4MG TABLET 12 MG (11:00)
[2025-03-19] MEDS: FAMOTIDINE 20MG TABLET 20 MG (11:00)
[2025-03-19] MEDS: SODIUM CHLORIDE 0.9% 100ML BAG 100 ML IV (11:33)
[2025-03-19] MEDS: PACLITAXEL IV (11:40)
[2025-03-19] MEDS: DEXTROSE 5% IV (11:40)
[2025-03-19] MEDS: WATER IV (11:40)
[2025-03-19] MEDS: SODIUM CHLORIDE 0.9% IV (12:49)
[2025-03-19] MEDS: CARBOPLATIN IV (12:49)
== END 2025-03-19 23:59 | disposition home or self-care (01) ==
LOC: LAB 09:52 → INF 10:01
PROVIDERS: Internal Medicine Medical Oncology; PCP Internal Medicine; Visit Provider Internal Medicine Medical Oncology
DX: C15.9 Malignant neoplasm of esophagus, unspecified (principal); Z51.11 Encounter for antineoplastic chemotherapy
CPT/HCPCS: 80053; 85025; 96413; 96415; 96417; J7060; J8540; J9045; J9267; Q0162

== ENCOUNTER 2025-03-26 10:31 | Outpatient (CLI) | payer BC, SELFPAY ==
--- OUTSIDE RECORDS SUMMARY | 2025-02-28 08:45 | XMS_ITS | Encounter Summary ---
Author Organization [facility] Address [address] [place] [address] Care Team Providers Care Microbial Specialist Name Role Phone Sánchez Torres MD Primary Care Provider [phone] Reason for Visit * Reason Comments New Patient * Consultation (Routine) - Closed Specialty Diagnoses / Procedures Referred By Paulette t Referred To Contact Cardiothoracic Surgery Diagnoses Esophageal adenocarcinoma Hever Conley MD [address] [id number] Phone: tel: fax: Cardiothoracic Surgery [address] [place] [address] Phone: tel:[phone] Referral ID Status Reason Start Date Expiration Date V isits Requested Visits Authorized [id number] Closed Specialty Services Required 02/22/2025 08/24/2026 1 1 Encounter Details Date Type Department Care Team ([facility] Contact Info) Description 02/28/2025 8:45 AM EDT Office Visit [facility] [address] [facility]nd [place] [address] Jewel Ojeda, DO [address] [facility] [address] [place] [address] Malignant neoplasm of lower third of esophagus [...] from the original note were not included. [facility] Department of Surgery Section of Thoracic [...] 03/01/2025 5:05 PM EDT Associated attestation - Jewle Ojeda DO - 03/01/2025 5:05 PM EDT [...] documented as of this encounter Care Teams Microbial Specialist Relationship Specialty Start Date End Date Sánchez Torres MD [address] [place] [address] [address] [place] [address] PCP - General 02/15/22 documented as of this encounter
[2025-03-26 10:34] VITALS: BMI 31.7
--- OUTSIDE RECORDS SUMMARY | 2025-03-26 10:36 | XMS_ITS | Encounter Summary ---
Author Organization [facility] Address [address] [place] [address] Care Team Providers Care Teacher Tutor Name Role Phone Sánchez Torres MD Primary Care Provider Encounter Details Date Type Department Care Team (Late st Contact Info) Description 02/07/2025 Orders Only External Location [address] [place] [address] Provider, External Social History Tobacco Use Types [...] documented as of this encounter Care Teams Teacher Tutor Relationship Specialty Start Date End Date Sánchez Torres MD [address] [place] [address] [place] [address] PCP - General 02/15/22 documented as of this encounter
--- OUTSIDE RECORDS SUMMARY | 2025-03-26 10:36 | XMS_ITS | Encounter Summary ---
Author Organization [facility] Address [address] [place] [address] Care Team Providers Care Corrosion Engineer Name Role Phone Sánchez Torres MD Primary Care Provider [phone] Encounter Details Date Type Department Care Team (Late st Contact Info) Description 11/20/2024 Orders Only External Location [address] [place] [address] Provider, External Social History Tobacco Use Types [...] PM EDT) Anatomical Region Laterality Modality Radiographic Reica ging 11/20/2024 3:30 PM EDT us External Provider IMG XR PROCEDURES Edited Resul t - Final documented in this encounter Visit Diagnoses Not on filedocumented in this encounter Additional Health Concerns Assessment Noted Time A fall risk assessment has been complete d for the patient 05/24/2022 10:42 AM EST documented as of this encounter Care Teams Corrosion Engineer Relationship Specialty Start Date End Date Sánchez Torres MD [address] [facility] [address] [place] [address] PCP - General 02/15/22 documented as of this encounter
--- OUTSIDE RECORDS SUMMARY | 2025-03-26 10:36 | XMS_ITS | Encounter Summary ---
Author Organization [facility] Address [address] [place] [address] Care Team Providers Care Invasive Cardiologist Name Role Phone Sánchez Torres MD Primary Care Provider [phone] Encounter Details Date Type Department Care Team (Late st Contact Info) Description 01/02/2025 Orders Only External Location [address] [place] [address] Provider, External Social History Tobacco Use Types [...] documented as of this encounter Care Teams Invasive Cardiologist Relationship Specialty Start Date End Date Sánchez Torres MD [address] [facility] [address] [place] [address] PCP - General 02/15/22 documented as of this encounter
--- OUTSIDE RECORDS SUMMARY | 2025-03-26 10:36 | XMS_ITS | Encounter Summary ---
Author Organization [facility] Address [address] [place] [address] Care Team Providers Care Hardware Installer Name Role Phone Sánchez Torres MD Primary Care Provider Encounter Details Date Type Department Care Team (Late st Contact Info) Description 02/20/2025 Orders Only External Location [address] [place] [address] Provider, External Social History Tobacco Use Types [...] documented as of this encounter Care Teams Hardware Installer Relationship Specialty Start Date End Date Sánchez Torres MD [address] [place] [address] [place] [address] PCP - General 02/15/22 documented as of this encounter
--- OUTSIDE RECORDS SUMMARY | 2025-03-26 10:36 | XMS_ITS | Encounter Summary ---
Author Organization [facility] Address [address] [place] [id number] Care Team Providers Care Agricultural Produce Commission Agent Name Role Phone Sánchez Torres MD Primary Care Provider [phone] Encounter Details Date Type Department Care Team (Late st Contact Info) Description 02/25/2025 Lab Requisition [facility] [address] [place] [address] Tatiana Myrick MD [address] [facility] [address] [place] [address] Dysphagia, unspecified Social History Tobacco [...] EDT) Case Report Sugical Pathology Consult Case: [id number] Authorizing Provider: Tatiana Myrick MD Collected: 02/25/20253 Ordering Location: [facility] Lab Received: 02/25/2025 1423 Pathologist: Janell Bhatti MD Specimen: Esophagus, [id number] 02/25/2025 3:02 PM EDT [facility] Final Diagnosis ESOPHAGUS, DISTAL, BIOPSY ([id number]; 02/07/2025): - INVASIVE MODERATELY DIFFERENTIATED ADENOCARCINOMA (SEE COMMENT). 02/25/2025 3:02 PM EDT [facility] at 1502 EDT Comment Per pathology report ) 1) IHC for HER-2/yessica: negative (score of 0) 2) Immunohistochemical stains for MMR proteins: retained nuclear immunoreaction for all 4 proteins (MLH-1, MSH-2, MSH-6, and PMS-2). 3) PD-L1 combined positive score: <1 4) CLDN18 (43-14a): positive (>95% of tumor cells) 02/25/2025 3:02 PM EDT [facility] Clinical Information R13.10 - Dysphagia, unspecified [ICD-10-CM] 02/25/2025 3:02 PM EDT [facility] Gross Description A. [id number] Received along with a corresponding pathology report from [facility] are 12 slides labeled outside case: [id number] collected on 02/07/2025. 02/25/2025 3:02 PM EDT [facility] Note: A resident was involved in the service. I attest I examined the relevant preparations for the specimens and confirmed the diagnosis or interpretation. 02/25/2025 3:02 PM EDT [facility] Tissue Esophageal structure / Unknown 02/25/2025 2:23 PM EDT 02/25/2025 2:23 PM EDT us Tatiana Myrick MD LAB PATHOLOGY ORDERABLES Final Result [facility] [address] [place] [address] documented in this encounter Visit Diagnoses Diagnosis Dysphagia, unspecified documented in this encounter Additional Health Concerns Assessment Noted Time A fall risk assessment has been complete d for the patient 05/24/2022 10:42 AM EST documented as of this encounter Care Teams Agricultural Produce Commission Agent Relationship Specialty Start Date End Date Sánchez Torres MD [address] [place] [address] [address] [place] [address] PCP - General 02/15/22 documented as of this encounter
--- OUTSIDE RECORDS SUMMARY | 2025-03-26 10:36 | XMS_ITS | Encounter Summary ---
Author Organization [facility] Address [address] [place] [address] Care Team Providers Care Instrument Technician Helper Name Role Phone Sánchez Torres MD Primary Care Provider [phone] Encounter Details Date Type Department Care Team (Late st Contact Info) Description 11/20/2024 Orders Only External Location [address] [place] [address] Provider, External Social History Tobacco Use Types [...] documented as of this encounter Care Teams Instrument Technician Helper Relationship Specialty Start Date End Date Sánchez Torres MD [address] [facility] [address] [place] [address] PCP - General 02/15/22 documented as of this encounter
--- OUTSIDE RECORDS SUMMARY | 2025-03-26 10:36 | XMS_ITS | Clinical Summary ---
Author Organization [facility] Address [address] [place] [id number] Care Team Providers Care Supervisor Of Instruction Name Role Phone Sánchez Torres MD Primary Care Provider [phone] Allergies No known active allergies Medications Multiple [...] (12/02/2017): Added automatically from request for surgery [id number] Obesity due to excess calories 10/06/2017 Atrial [...] Description 05/08/2025 10:30 AM EST Office Visit [facility] [address] [facility] [address] [place] [address] Wagner Jones MD [address] [facility] [address] [place] [address] Scheduled Procedures Name Priority Associated [...] VACCINE 01/04/2025 03/22/2024, , 02/27/2022 COVID-19 Vaccine (7 - Modern a risk ) 02/04/2025 03/22/2024, 04/14/2023, 02/27/2022, Additional history exists Medical Devices Implanted Type Area Digital Product Manager Device Identifier Shelf Expiration Date Model / Serial / Lot Appl Clip Savana Atriclip Pro2 40mm - [id number] Implanted:Qty: 1 on 01/02/2018 by Bucky Holland MD at [facility] Implant Heart ATRICURE 01/05/2020 [id number] / [id number] Procedures Procedure Name Priority Date/Time Associated Diagnosis Comments HEMOGLOBIN A1C Routine 12/18/2017 12:05 PM EDT Atrial flutter, unspecified type from Last 3 Months or Most Recently Relevant to Health Maintenance Results * (ABNORMAL) Hemoglobin A1c (12/18/2017 12:05 PM EDT) Hemoglobin A1C 6.30(H) 4.80 - 5.60 % 12/18/2017 1:42 PM EDT [facility] Blood Venipuncture / Unknown 12/18/2017 12:05 PM EDT 12/18/2017 12:48 PM EDT Narrative [facility] - 12/18/2017 1:42 PM EDT The [place] [employer] recommends maintenance of Hemoglobin A1C at 7.0% or lower. Goals for Hemoglobin A1C reduction may need to be modified if hypoglycemia is a problem. us Becky Botello PA-C LAB BLOOD ORDERABLES Final R esult [facility]
[address] [place] [address], from Last 3 Months or Most Recently Relevant to Health Maintenance Insurance ASHLEY Parcel MEDICARE A ONLY Advance Directives * CPR (Attempt to Resuscitate) (Latest Code Status on File) Date Activated Date Inactivated Comments 01/02/2018 10:29 AM 01/03/2018 4:22 PM Question Answer Comments Code Status (Patient has no pulse and is not breathing): CPR (Attempt to Resuscitate) Medical Interventions (Patie nt has pulse or is breathing): Full Level Of Support Discussed With: Patient Care Teams Supervisor Of Instruction Relationship Specialty Start Date End Date Sánchez Torres MD [address] [facility] [address] [place] [address] PCP - General 06/25/15
--- OUTSIDE RECORDS SUMMARY | 2025-03-26 10:36 | XMS_ITS | Encounter Summary ---
Author Organization [facility] Address [address] [place] [address] Care Team Providers Care Automatic Drill Operator Name Role Phone Sánchez Torres MD Primary Care Provider [phone] Encounter Details Date Type Department Care Team (Late st Contact Info) Description 01/23/2024 Orders Only External Location [address] [place] [address] Provider, External Social History Tobacco Use Types [...] documented as of this encounter Care Teams Automatic Drill Operator Relationship Specialty Start Date End Date Sánchez Torres MD [address] [place] [address] [place] [address] PCP - General 02/15/22 documented as of this encounter
--- OUTSIDE RECORDS SUMMARY | 2025-03-26 10:36 | XMS_ITS | Encounter Summary ---
Author Organization [facility] Address [address] [place] [id number] Care Team Providers Care Washer Engineer Helper Name Role Phone Sánchez Torres MD Primary Care Provider [phone] Encounter Details Date Type Department Care Team (Late st Contact Info) Description 11/21/2024 Orders Only External Location [address] [place] [address] Provider, External Social History Tobacco Use Types [...] documented as of this encounter Care Teams Washer Engineer Helper Relationship Specialty Start Date End Date Sánchez Torres MD [address] [facility] [address] [place] [address] PCP - General 02/15/22 documented as of this encounter
--- OUTSIDE RECORDS SUMMARY | 2025-03-26 10:36 | XMS_ITS | Encounter Summary ---
Author Organization [facility] Address [address] [place] [address] Care Team Providers Care Biomed Tech Name Role Phone Sánchez Torres MD Primary Care Provider [phone] Reason for Visit * Reason Onset Date Comments STEFANO Nurse Liaison call 03/01/2025 Encounter Details Date Type Department Care Team (Late st Contact Info) Description 03/01/2025 Telephone Pav CC Head, Neck & Respiratory [address] [facility]nd [place] [address] Michelle Castellanos [place] [phone] STEFANO Nurse Liaison call Social History Tobacco [...] Lemos : 1945 Date: 03/01/25 Referred to [facility] by: Dr. Hever Conley Affiliate Site: [facility] Services Provided: Pre/Post Appointment Phone Call Educated On: STEFANO Nurse Liaison/Psych Oncology Services Patient was referred to [facility] by his local medical oncologist. STEFANO Nurse Liaison contacted the patient for a post appointment phone call. Explained liaison services as well as other resources at [facility] including those available through Psych Oncology [...] documented as of this encounter Care Teams Biomed Tech Relationship Specialty Start Date End Date Sánchez Torres MD [address] [place] [address] [address] [place] [address] PCP - General 02/15/22 documented as of this encounter
--- OUTSIDE RECORDS SUMMARY | 2025-03-26 10:36 | XMS_ITS | Encounter Summary ---
Author Organization [facility] Address [address] [place] [address] Care Team Providers Care Density Control Puncher Name Role Phone Sánchez Torres MD Primary Care Provider [phone] Encounter Details Date Type Department Care Team (Late st Contact Info) Description 01/01/2025 Orders Only External Location [address] [place] [address] Provider, External Social History Tobacco Use Types [...] documented as of this encounter Care Teams Density Control Puncher Relationship Specialty Start Date End Date Sánchez Torres MD [address] [place] [address] PCP - General 02/15/22 documented as of this encounter
--- OUTSIDE RECORDS SUMMARY | 2025-03-26 10:36 | XMS_ITS | Clinical Summary ---
Author Organization [facility] Address [address] [place] [address] Care Team Providers Care Suppression Crew Leader Name Role Phone Sánchez Torres MD Primary Care Provider [phone] Allergies No known active allergies Medications metoprolol [...] [facility] [address] [place] [address] Michelle Castellanos Nurse Liaison call 02/28/2025 8:45 AM EDT Office Visit [facility] [address] Jewel Ojeda D, DO Malignant neoplasm of lower third of esophagus (CMS/HCC) (Primary Dx); Obesity (BMI 35.0-39.9 without comorbidity) 02/28/2025 Travel 02/25/2025 Lab Requisition [facility] [address] Tatiana Myrick MD Dysphagia, unspecified 02/20/2025 Orders Only External Location [address] [place] [address] Provider, External 02/07/2025 Orders Only External Location 800 [place] [address] Provider, External 02/07/2025 Orders Only External Location [address] [place] [address] Provider, External 01/09/2025 Orders Only External Location [address] [place] [address] Gus Dee PA 01/02/2025 Orders Only External Location [address] [place] [address] Provider, External 01/01/2025 Orders Only External Location [address] [place] [address] Provider, External from Last 3 Months Family [...] or (1 - 1-dose 75+ series) 2022 [id number]-50 Vaccine (7 - Moderna risk season) 2025 [...] EDT) Case Report Sugical Pathology Consult Case: [id number] Authorizing Provider: Tatiana Myrick MD Collected: 02/25/20251422 Ordering Location: [facility] Received: 02/25/2025 1423 Pathologist: Janell Bhatti MD Specimen: Esophagus, [id number] 02/25/2025 3:02 PM EDT [facility] Final Diagnosis ESOPHAGUS, DISTAL, BIOPSY ([id number]; 02/07/2025): - INVASIVE MODERATELY DIFFERENTIATED ADENOCARCINOMA (SEE COMMENT). 02/25/2025 3:02 PM EDT [facility] at 1502 EDT Comment Per pathology report ) 1) IHC for HER-2/yessica: negative (score of 0) 2) Immunohistochemical stains for MMR proteins: retained nuclear immunoreaction for all 4 proteins (MLH-1, MSH-2, MSH-6, and PMS-2). 3) PD-L1 combined positive score: <1 4) CLDN18 (43-14a): positive (>95% of tumor cells) 02/25/2025 3:02 PM EDT [facility] Clinical Information R13.10 - Dysphagia, unspecified [ICD-10-CM] 02/25/2025 3:02 PM EDT [facility] Gross Description A. [id number] Received along with a corresponding pathology report from [facility] are 12 slides labeled outside case: [id number] collected on 02/07/2025. 02/25/2025 3:02 PM EDT [facility] Note: A resident was involved in the service. I attest I examined the relevant preparations for the specimens and confirmed the diagnosis or interpretation. 02/25/2025 3:02 PM EDT [facility] Tissue Esophageal structure / Unknown 02/25/2025 2:23 PM EDT 02/25/2025 2:23 PM EDT us Tatiana Myrick MD LAB PATHOLOGY ORDERABLES Final Result [facility] [address] [place] [address] * CT NEURO OUTSIDE IMAGES (02/20/2025 10:07 [...] Final from Last 3 Months Insurance MEDICARE [facility] Care Teams Suppression Crew Leader Relationship Specialty Start Date End Date Sánchez Torres MD [address] [place] [address] PCP - General 02/15/22
--- OUTSIDE RECORDS SUMMARY | 2025-03-26 10:36 | XMS_ITS | Encounter Summary ---
Author Organization Healthcare Address [address] [id number] Care Team Providers Care Pain Management Physician Name Role Phone Sánchez Torres MD Primary Care Provider Encounter Details Date Type Department Care Team (Late st Contact Info) Description 01/09/2025 Orders Only External Location 800 [place] [address] Gus Dee PA [address] [id number] Social History Tobacco Use Types Packs/Day Years [...] documented as of this encounter Care Teams Pain Management Physician Relationship Specialty Start Date End Date Sánchez Torres MD 1210 [facility] [address] [place] [address] PCP - General 02/15/22 documented as of this encounter
--- OUTSIDE RECORDS SUMMARY | 2025-03-26 10:36 | XMS_ITS | Encounter Summary ---
Author Organization [facility] Address [facility] [address] [id number] Care Team Providers Care Academic Computing Director Name Role Phone Sánchez Torres MD Primary Care Provider [phone] Encounter Details Date Type Department Care Team [...] documented as of this encounter Care Teams Academic Computing Director Relationship Specialty Start Date End Date Sánchez Torres MD 1210 [facility] [address] [place] [id number] PCP - General 02/15/22 documented as of this encounter
--- OUTSIDE RECORDS SUMMARY | 2025-03-26 10:36 | XMS_ITS | Encounter Summary ---
Author Organization [facility] Address [address] [place] [address] Care Team Providers Care Barrel Painter Name Role Phone Sánchez Torres MD Primary Care Provider [phone] Encounter Details Date Type Department Care Team (Late st Contact Info) Description 02/07/2025 Orders Only External Location 800 [place] [address] Provider, External Social History Tobacco Use Types [...] documented as of this encounter Care Teams Barrel Painter Relationship Specialty Start Date End Date Sánchez Torres MD [address] [place] [address] PCP - General 02/15/22 documented as of this encounter
[2025-03-26 10:40] LABS: Hematocrit 39.1 % (42.0-52.0); Hemoglobin 13.0 g/dL (14.1-18.0); Immature Granulocytes % 0.7 %; Mean Corpuscular HGB Conc 33.2 g/dL (31.8-35.4); Mean Corpuscular Hemoglobin 29.7 pg (27.0-31.2); Mean Corpuscular Volume 89.3 fl (80-94); Nucleated Red Blood Cells % 0 %; Platelet Count 259 K/mm3 (142-424); Red Blood Count 4.38 M/mm3 (4.60-6.20); Red Cell Distribution Width-SD 42.6 fL; White Blood Count 8.5 K/mm3 (4.8-10.8)
[2025-03-26 10:53] LABS: Alanine Aminotransferase 19 U/L (12-78); Albumin Level 3.7 g/dl (3.5-5.0); Albumin/Globulin Ratio 1.5 (1.1-1.8); Alkaline Phosphatase 72 U/L (38-126); Anion Gap 12.9 mEq/L (5-15); Aspartate Amino Transferase 23 U/L (17-59); Bilirubin,Total 0.9 mg/dl (0.2-1.3); Blood Urea Nitrogen 12 mg/dl (9-20); Calcium 8.4 mg/dl (8.4-10.2); Carbon Dioxide 26 mmol/L (22.0-30.0); Chloride 101 mmol/L (98-107); Creatinine Clearance Estimated 93 mL/min (50-200); Creatinine,Serum 0.70 mg/dl (0.66-1.25); Estimated Glomerular Filt Rate 109 ml/min (>60); GFR (African American) 132 ML/MIN (>60); Globulin 2.5 g/dL (1.3-3.2); Glucose 146 mg/dl (74-100); Potassium 4.9 mmoL/L (3.5-5.1); Sodium 135 mmol/L (136-145); Total Protein,Serum 6.2 g/dl (6.3-8.2)
[2025-03-26] MEDS: SODIUM CHLORIDE 0.9% 100ML BAG 100 ML IV (11:14)
[2025-03-26] MEDS: FAMOTIDINE 20MG TABLET 20 MG PO (11:14)
[2025-03-26] MEDS: DEXAMETHASONE 4MG TABLET 12 MG PO (11:14)
[2025-03-26] MEDS: LORATADINE 10MG TABLET 10 MG PO (11:14)
[2025-03-26] MEDS: ONDANSETRON 4MG ODT 16 MG SL (11:14)
[2025-03-26 11:58] VITALS: BP 143/89; PULSE 66; RESP 18; O2SAT 100
[2025-03-26] MEDS: DEXTROSE 5% IV (11:58)
[2025-03-26] MEDS: WATER IV (11:58)
[2025-03-26] MEDS: PACLITAXEL IV (11:58)
[2025-03-26 13:14] VITALS: BP 142/81; PULSE 68; RESP 18; O2SAT 100
[2025-03-26] MEDS: SODIUM CHLORIDE 0.9% IV (13:14)
[2025-03-26] MEDS: CARBOPLATIN IV (13:14)
[2025-03-26 13:55] VITALS: BP 148/88; PULSE 72; RESP 18; O2SAT 100
== END 2025-03-26 23:59 | disposition home or self-care (01) ==
PROVIDERS: PCP Internal Medicine; Visit Provider Internal Medicine Medical Oncology
DX: C15.9 Malignant neoplasm of esophagus, unspecified (principal); Z51.11 Encounter for antineoplastic chemotherapy
CPT/HCPCS: 80053; 85025; 96413; 96415; 96417; J7060; J8540; J9045; J9267; Q0162

== ENCOUNTER 2025-04-02 10:16 | Outpatient (CLI) | payer BC, SELFPAY ==
--- OUTSIDE RECORDS SUMMARY | 2025-02-28 08:45 | XMS_ITS | Encounter Summary ---
Author Organization [facility] Address [address] [place] [address] Care Team Providers Care Donor Services Technician Name Role Phone Sánchez Torres MD Primary Care Provider [phone] Reason for Visit * Reason Comments New Patient * Consultation (Routine) - Closed Specialty Diagnoses / Procedures Referred By Paulette t Referred To Contact Cardiothoracic Surgery Diagnoses Esophageal adenocarcinoma Hever Conley MD [address] [place] [id number] Phone: tel: fax: Cardiothoracic Surgery [address] [place] [address] Phone: tel:[phone] Referral ID Status Reason Start Date Expiration Date V isits Requested Visits Authorized [id number] Closed Specialty Services Required 02/22/2025 08/24/2026 1 1 Encounter Details Date Type Department Care Team ([facility] Contact Info) Description 02/28/2025 8:45 AM EDT Office Visit Pav CC Head, Neck & Respiratory [address] [facility], 2nd [place] [address] Jewel Ojeda, DO [address] [facility] [address] [place] [address] Malignant neoplasm of lower third of esophagus [...] the original note were not included. [facility] Department of Surgery Section of Thoracic Surgery [...] documented as of this encounter Care Teams Donor Services Technician Relationship Specialty Start Date End Date Sánchez Torres MD [address] [place] [address] [address] [place] [address] PCP - General 02/15/22 documented as of this encounter
[2025-04-02 10:27] LABS: Hematocrit 42.0 % (42.0-52.0); Hemoglobin 13.7 g/dL (14.1-18.0); Immature Granulocytes % 0.9 %; Mean Corpuscular HGB Conc 32.6 g/dL (31.8-35.4); Mean Corpuscular Hemoglobin 28.8 pg (27.0-31.2); Mean Corpuscular Volume 88.2 fl (80-94); Nucleated Red Blood Cells % 0 %; Platelet Count 261 K/mm3 (142-424); Red Blood Count 4.76 M/mm3 (4.60-6.20); Red Cell Distribution Width-SD 41.9 fL; White Blood Count 4.4 K/mm3 (4.8-10.8)
[2025-04-02 10:31] VITALS: BMI 31.0
--- OUTSIDE RECORDS SUMMARY | 2025-04-02 10:34 | XMS_ITS | Encounter Summary ---
Author Organization [facility] Address [address] [place] [address] Care Team Providers Care Sports Announcer Name Role Phone Sánchez Torres MD Primary Care Provider [phone] Encounter Details Date Type Department Care Team (Late st Contact Info) Description 11/20/2024 Orders Only External Location 800 [place] [address] Provider, External Social History Tobacco Use Types [...] documented as of this encounter Care Teams Sports Announcer Relationship Specialty Start Date End Date Sánchez Torres MD 1210 [facility] [address] [place] [address] PCP - General 02/15/22 documented as of this encounter
--- OUTSIDE RECORDS SUMMARY | 2025-04-02 10:34 | XMS_ITS | Encounter Summary ---
Author Organization [facility] Address [address] [place] [address] Care Team Providers Care Piano Case Maker Name Role Phone Sánchez Torres MD Primary Care Provider [phone] Encounter Details Date Type Department Care Team (Late st Contact Info) Description 11/20/2024 Orders Only External Location 800 [place] [address] Provider, External Social History Tobacco Use Types [...] documented as of this encounter Care Teams Piano Case Maker Relationship Specialty Start Date End Date Sánchez Torres MD 1210 [facility] [address] [place] [address] PCP - General 02/15/22 documented as of this encounter
--- OUTSIDE RECORDS SUMMARY | 2025-04-02 10:34 | XMS_ITS | Encounter Summary ---
Author Organization [facility] Address [address] [id number] Care Team Providers Care Unhairing Inspector Name Role Phone Sánchez Torres MD Primary Care Provider [phone] Encounter Details Date Type Department Care Team (Late st Contact Info) Description 01/01/2025 Orders Only External Location 800 [place] [address] Provider, External Social History Tobacco Use Types [...] documented as of this encounter Care Teams Unhairing Inspector Relationship Specialty Start Date End Date Sánchez Torres MD [address] [place] [address] PCP - General 02/15/22 documented as of this encounter
--- OUTSIDE RECORDS SUMMARY | 2025-04-02 10:34 | XMS_ITS | Clinical Summary ---
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); Obesity (BMI 35.0-39.9 without comorbidity) 02/28/2025 Travel 02/25/2025 Lab Requisition [facility] [address] Tatiana Myrick MD Dysphagia, unspecified 02/20/2025 Orders Only External Location [address] [place] [address] [address] Provider, External 02/07/2025 Orders Only External Location 800 [place] [address] Provider, External 02/07/2025 Orders Only External Location 800 [place] [address] Provider, External 01/09/2025 Orders Only External Location [address] [place] [address] Gus Dee PA 01/02/2025 Orders Only External Location 800 [place] [address] Provider, External 01/01/2025 Orders Only External Location [address] [place] [address] Provider, External from Last 3 Months Family [...] or (1 - 1-dose 75+ series) 2022 WMG-SFBYN-40 Vaccine (7 - Moderna risk season) 2025 [...] EDT) Case Report Sugical Pathology Consult Case: [id number] Authorizing Provider: Tatiana Myrick MD Collected: 02/25/20251422 Ordering Location: [facility] Received: 02/25/2025 1423 Pathologist: Janell Bhatti MD Specimen: Esophagus, [id number] 02/25/2025 3:02 PM EDT [facility] Final Diagnosis ESOPHAGUS, DISTAL, BIOPSY ([id number]; 02/07/2025): - INVASIVE MODERATELY DIFFERENTIATED ADENOCARCINOMA (SEE COMMENT). 02/25/2025 3:02 PM EDT [facility] at 1502 EDT Comment Per pathology report ) 1) IHC for HER-2/yessica: negative (score of 0) 2) Immunohistochemical stains for MMR proteins: retained nuclear immunoreaction for all 4 proteins (MLH-1, MSH-2, MSH-6, and PMS-2). 3) PD-L1 combined positive score: <1 4) CLDN18 (43-14a): positive (>95% of tumor cells) 02/25/2025 3:02 PM EDT [facility] Clinical Information R13.10 - Dysphagia, unspecified [ICD-10-CM] 02/25/2025 3:02 PM EDT [facility] Gross Description A. [id number] Received along with a corresponding pathology report from [facility] are 12 slides labeled outside case: [id number] collected on 02/07/2025. 02/25/2025 3:02 PM EDT [facility] Note: A resident was involved in the service. I attest I examined the relevant preparations for the specimens and confirmed the diagnosis or interpretation. 02/25/2025 3:02 PM EDT [facility] Tissue Esophageal structure / Unknown 02/25/2025 2:23 PM EDT 02/25/2025 2:23 PM EDT us Tatiana Myrick MD LAB PATHOLOGY ORDERABLES Final Result [facility] [address] [place] [address] * CT NEURO OUTSIDE IMAGES (02/20/2025 10:07 [...] Final from Last 3 Months Insurance MEDICARE [facility] Care Teams Barrel Leveler Relationship Specialty Start Date End Date Sánchez Torres MD [address] [place] [address] PCP - General 02/15/22
--- OUTSIDE RECORDS SUMMARY | 2025-04-02 10:34 | XMS_ITS | Encounter Summary ---
Author Organization [facility] Address [address] [phone] Care Team Providers Care Assistant Chief Of Police Name Role Phone Sánchez Torres MD Primary Care Provider [phone] Encounter Details Date Type Department Care Team (Late st Contact Info) Description 02/25/2025 Lab Requisition [facility] 800 [place] [address] Tatiana Myrick MD [address] [facility] [address] [place] [address] Dysphagia, unspecified Social History Tobacco [...] EDT) Case Report Sugical Pathology Consult Case: [id number] Authorizing Provider: Tatiana Myrick MD Collected: 02/25/20253 Ordering Location: [facility] Received: 02/25/2025 1423 Pathologist: Janell Bhatti MD Specimen: Esophagus, [id number] 02/25/2025 3:02 PM EDT [facility] Final Diagnosis ESOPHAGUS, DISTAL, BIOPSY ([id number]; 02/07/2025): - INVASIVE MODERATELY DIFFERENTIATED ADENOCARCINOMA (SEE COMMENT). 02/25/2025 3:02 PM EDT [facility] at 1502 EDT Comment Per pathology report ) 1) IHC for HER-2/yessica: negative (score of 0) 2) Immunohistochemical stains for MMR proteins: retained nuclear immunoreaction for all 4 proteins (MLH-1, MSH-2, MSH-6, and PMS-2). 3) PD-L1 combined positive score: <1 4) CLDN18 (43-14a): positive (>95% of tumor cells) 02/25/2025 3:02 PM EDT [facility] Clinical Information R13.10 - Dysphagia, unspecified [ICD-10-CM] 02/25/2025 3:02 PM EDT [facility] Gross Description A. [id number] Received along with a corresponding pathology report from [facility] Laboratory are 12 slides labeled outside case: [id number] collected on 02/07/2025. 02/25/2025 3:02 PM EDT [facility] Note: A resident was involved in the service. I attest I examined the relevant preparations for the specimens and confirmed the diagnosis or interpretation. 02/25/2025 3:02 PM EDT [facility] Tissue Esophageal structure / Unknown 02/25/2025 2:23 PM EDT 02/25/2025 2:23 PM EDT us Tatiana Myrick MD LAB PATHOLOGY ORDERABLES Final Result [facility] [address] [place] [address] documented in this encounter Visit Diagnoses Diagnosis Dysphagia, unspecified documented in this encounter Additional Health Concerns Assessment Noted Time A fall risk assessment has been complete d for the patient 05/24/2022 10:42 AM EST documented as of this encounter Care Teams Assistant Chief Of Police Relationship Specialty Start Date End Date Sánchez Torres MD [address] [place] [address] [address] [place] [address] PCP - General 02/15/22 documented as of this encounter
--- OUTSIDE RECORDS SUMMARY | 2025-04-02 10:34 | XMS_ITS | Encounter Summary ---
Author Organization [facility] Address [address] [place] [address] Care Team Providers Care President Finance Company Name Role Phone Sánchez Torres MD Primary Care Provider [phone] Reason for Visit * Reason Onset Date Comments STEFANO Nurse Liaison call 03/01/2025 Encounter Details Date Type Department Care Team (Late st Contact Info) Description 03/01/2025 Telephone [facility] Head[facility] Neck [facility] Respiratory 800 [facility], [address]nd [place] [address] Michelle Castellanos [place] [phone] STEFANO Nurse Liaison call Social History Tobacco [...] Lemos : 1945 Date: 03/01/25 Referred to [facility] by: Dr. Hever Conley Affiliate Site: [facility] Services Provided: Pre/Post Appointment Phone Call Educated On: STEFANO Nurse Liaison/Psych Oncology Services Patient was referred to [facility] by his local medical oncologist. STEFANO Nurse Liaison contacted the patient for a post appointment phone call. Explained liaison services as well as other resources at [facility] including those available through Psych Oncology services, [...] documented as of this encounter Care Teams President Finance Company Relationship Specialty Start Date End Date Sánchez Torres MD [address] [place] [address] [address] [place] [address] PCP - General 02/15/22 documented as of this encounter
--- OUTSIDE RECORDS SUMMARY | 2025-04-02 10:34 | XMS_ITS | Encounter Summary ---
Author Organization [facility] Address [address] [place] [address] Care Team Providers Care Program Architect Name Role Phone Sánchez Torres MD Primary Care Provider [phone] Encounter Details Date Type Department Care Team (Late st Contact Info) Description 01/23/2024 Orders Only External Location 800 [place] [address] Provider, External Social History Tobacco Use Types [...] documented as of this encounter Care Teams Program Architect Relationship Specialty Start Date End Date Sánchez Torres MD [address] [place] [address] PCP - General 02/15/22 documented as of this encounter
--- OUTSIDE RECORDS SUMMARY | 2025-04-02 10:34 | XMS_ITS | Encounter Summary ---
Author Organization [facility] Address [facility] [place] [address] [id number] Care Team Providers Care Stunner Animal Name Role Phone Sánchez Torres MD Primary Care Provider [phone] Encounter Details Date Type Department Care Team [...] documented as of this encounter Care Teams Stunner Animal Relationship Specialty Start Date End Date Sánchez Torres MD 1210 [facility] [address] [place] [id number] PCP - General 02/15/22 documented as of this encounter
--- OUTSIDE RECORDS SUMMARY | 2025-04-02 10:34 | XMS_ITS | Encounter Summary ---
Author Organization Healthcare Address [address] [id number] Care Team Providers Care Home Appliance Technician Name Role Phone Sánchez Torres MD Primary Care Provider [phone] Encounter Details Date Type Department Care Team (Late st Contact Info) Description 01/09/2025 Orders Only External Location 800 [place] [address] Gus Dee PA [address] [id number] Social History Tobacco Use Types Packs/Day Years [...] documented as of this encounter Care Teams Home Appliance Technician Relationship Specialty Start Date End Date Sánchez Torres MD 1210 [facility] [address] [place] [address] PCP - General 02/15/22 documented as of this encounter
--- OUTSIDE RECORDS SUMMARY | 2025-04-02 10:34 | XMS_ITS | Encounter Summary ---
Author Organization [facility] Address [address] [place] [address] Care Team Providers Care Hide Tanner Name Role Phone Sánchez Torres MD Primary Care Provider [phone] Encounter Details Date Type Department Care Team (Late st Contact Info) Description 02/07/2025 Orders Only External Location 800 [place] [address] Provider, External Social History Tobacco Use Types [...] documented as of this encounter Care Teams Hide Tanner Relationship Specialty Start Date End Date Sánchez Torres MD [address] [place] [address] PCP - General 02/15/22 documented as of this encounter
--- OUTSIDE RECORDS SUMMARY | 2025-04-02 10:34 | XMS_ITS | Encounter Summary ---
Author Organization [facility] Address [address] [place] [address] Care Team Providers Care Hydrogenation Operator Name Role Phone Sánchez Torres MD Primary Care Provider [phone] Encounter Details Date Type Department Care Team (Late st Contact Info) Description 02/20/2025 Orders Only External Location 800 [place] [address] Provider, External Social History Tobacco Use Types [...] documented as of this encounter Care Teams Hydrogenation Operator Relationship Specialty Start Date End Date Sánchez Torres MD [address] [place] [address] PCP - General 02/15/22 documented as of this encounter
--- OUTSIDE RECORDS SUMMARY | 2025-04-02 10:34 | XMS_ITS | Encounter Summary ---
Author Organization [facility] Address [address] [place] [address] Care Team Providers Care Global Project Manager Name Role Phone Sánchez Torres MD Primary Care Provider Encounter Details Date Type Department Care Team (Late st Contact Info) Description 01/02/2025 Orders Only External Location 800 [place] [address] Provider, External Social History Tobacco Use Types [...] documented as of this encounter Care Teams Global Project Manager Relationship Specialty Start Date End Date Sánchez Torres MD 1210 [facility] [address] [place] [address] PCP - General 02/15/22 documented as of this encounter
--- OUTSIDE RECORDS SUMMARY | 2025-04-02 10:34 | XMS_ITS | Clinical Summary ---
Author Organization [facility] Address [address] [place] [id number] Care Team Providers Care Dental Ceramist Helper Name Role Phone Sánchez Torres MD Primary Care Provider [phone] Allergies No known active allergies Medications Multiple [...] (12/02/2017): Added automatically from request for surgery [id number] Obesity due to excess calories 10/06/2017 Atrial [...] Description 05/08/2025 10:30 AM EST Office Visit [facility] [address] [facility] [address] [place] [address] Wagner Jones MD [address] [facility] [address] [place] [address] Scheduled Procedures Name Priority Associated [...] history exists Medical Devices Implanted Type Area Family Physician Device Identifier Shelf Expiration Date Model / Serial / Lot Appl Clip Savana Atriclip Pro2 40mm - [id number] Implanted:Qty: 1 on 01/02/2018 by Bucky Holland MD at [facility] Implant Heart ATRICURE 01/05/2020 [id number] / [id number] Procedures Procedure Name Priority Date/Time Associated Diagnosis Comments HEMOGLOBIN A1C Routine 12/18/2017 12:05 PM EDT Atrial flutter, unspecified type from Last 3 Months or Most Recently Relevant to Health Maintenance Results * (ABNORMAL) Hemoglobin A1c (12/18/2017 12:05 PM EDT) Hemoglobin A1C 6.30(H) 4.80 - 5.60 % 12/18/2017 1:42 PM EDT [facility] Blood Venipuncture / Unknown 12/18/2017 12:05 PM EDT 12/18/2017 12:48 PM EDT Narrative [facility] - 12/18/2017 1:42 PM EDT The [place] [employer] recommends maintenance of Hemoglobin A1C at 7.0% or lower. Goals for Hemoglobin A1C reduction may need to be modified if hypoglycemia is a problem. us Becky Botello PA-C LAB BLOOD ORDERABLES Final R esult [facility]
[address] [place] [address], from Last 3 Months or Most Recently Relevant to Health Maintenance Insurance [employer] MEDICARE A ONLY Advance Directives * CPR (Attempt to Resuscitate) (Latest Code Status on File) Date Activated Date Inactivated Comments 01/02/2018 10:29 AM 01/03/2018 4:22 PM Question Answer Comments Code Status (Patient has no pulse and is not breathing): CPR (Attempt to Resuscitate) Medical Interventions (Patie nt has pulse or is breathing): Full Level Of Support Discussed With: Patient Care Teams Dental Ceramist Helper Relationship Specialty Start Date End Date Sánchez Torres MD [address] [facility] [address] [place] [address] PCP - General 06/25/15
--- OUTSIDE RECORDS SUMMARY | 2025-04-02 10:34 | XMS_ITS | Encounter Summary ---
Author Organization [facility] Address [address] [id number] Care Team Providers Care Guideman Name Role Phone Sánchez Torres MD Primary Care Provider [phone] Encounter Details Date Type Department Care Team (Late st Contact Info) Description 11/21/2024 Orders Only External Location 800 [place] [address] Provider, External Social History Tobacco Use Types [...] documented as of this encounter Care Teams Guideman Relationship Specialty Start Date End Date Sánchez Torres MD [address] [facility] [address] [place] [address] PCP - General 02/15/22 documented as of this encounter
--- OUTSIDE RECORDS SUMMARY | 2025-04-02 10:34 | XMS_ITS | Encounter Summary ---
Author Organization [facility] Address [address] [place] [address] Care Team Providers Care Mat Making Machine Tender Name Role Phone Sánchez Torres MD Primary Care Provider [phone] Encounter Details Date Type Department Care Team (Late st Contact Info) Description 02/07/2025 Orders Only External Location 800 [place] [address] Provider, External Social History Tobacco Use Types [...] documented as of this encounter Care Teams Mat Making Machine Tender Relationship Specialty Start Date End Date Sánchez Torres MD [address] [place] [address] PCP - General 02/15/22 documented as of this encounter
[2025-04-02 10:41] LABS: Alanine Aminotransferase 21 U/L (12-78); Albumin Level 3.9 g/dl (3.5-5.0); Albumin/Globulin Ratio 1.5 (1.1-1.8); Alkaline Phosphatase 64 U/L (38-126); Anion Gap 9.6 mEq/L (5-15); Aspartate Amino Transferase 24 U/L (17-59); Bilirubin,Total 0.7 mg/dl (0.2-1.3); Blood Urea Nitrogen 13 mg/dl (9-20); Calcium 8.9 mg/dl (8.4-10.2); Carbon Dioxide 29 mmol/L (22.0-30.0); Chloride 100 mmol/L (98-107); Creatinine Clearance Estimated 91 mL/min (50-200); Creatinine,Serum 0.90 mg/dl (0.66-1.25); Estimated Glomerular Filt Rate 82 ml/min (>60); GFR (African American) 99 ML/MIN (>60); Globulin 2.6 g/dL (1.3-3.2); Glucose 160 mg/dl (74-100); Potassium 5.6 mmoL/L (3.5-5.1); Sodium 133 mmol/L (136-145); Total Protein,Serum 6.5 g/dl (6.3-8.2)
[2025-04-02] MEDS: LORATADINE 10MG TABLET 10 MG PO (10:57)
[2025-04-02] MEDS: DEXAMETHASONE 4MG TABLET 12 MG (10:57)
[2025-04-02] MEDS: ONDANSETRON 4MG ODT 16 MG (10:57)
[2025-04-02] MEDS: FAMOTIDINE 20MG TABLET 20 MG (10:58)
[2025-04-02] MEDS: PACLITAXEL IV (11:31)
[2025-04-02] MEDS: DEXTROSE 5% IV (11:31)
[2025-04-02] MEDS: WATER IV (11:31)
[2025-04-02 11:35] VITALS: BP 126/69; PULSE 76; RESP 18; O2SAT 98
[2025-04-02] MEDS: SODIUM CHLORIDE 0.9% 100ML BAG 100 ML IV (11:35)
[2025-04-02] MEDS: SODIUM CHLORIDE 0.9% IV (12:40)
[2025-04-02] MEDS: CARBOPLATIN IV (12:40)
[2025-04-02 12:41] VITALS: BP 118/64; PULSE 76; RESP 18; O2SAT 98
[2025-04-02 13:20] VITALS: BP 109/61; PULSE 71; RESP 18; O2SAT 98
== END 2025-04-02 23:59 | disposition home or self-care (01) ==
PROVIDERS: PCP Internal Medicine; Visit Provider Internal Medicine Medical Oncology
DX: C15.9 Malignant neoplasm of esophagus, unspecified (principal); Z51.11 Encounter for antineoplastic chemotherapy
CPT/HCPCS: 80053; 85025; 96413; 96415; 96417; J7060; J8540; J9045; J9267; Q0162

== ENCOUNTER 2025-04-09 10:12 | Outpatient (CLI) | payer BC, SELFPAY ==
--- OUTSIDE RECORDS SUMMARY | 2025-02-28 07:45 | XMS_ITS | Encounter Summary ---
Author Organization [facility] Address [address] [place] [address] Care Team Providers Care Pinion And Wheel Truer Name Role Phone Sánchez Torres MD Primary Care Provider [phone] Reason for Visit * Reason Comments New Patient * Consultation (Routine) - Closed Specialty Diagnoses / Procedures Referred By Paulette t Referred To Contact Cardiothoracic Surgery Diagnoses Esophageal adenocarcinoma Hveer Conley MD [address] [place] [id number] Phone: tel: fax: Cardiothoracic Surgery [address] [place] [address] Phone: tel:[phone] Referral ID Status Reason Start Date Expiration Date V isits Requested Visits Authorized [id number] Closed Specialty Services Required 02/22/2025 08/24/2026 1 1 Encounter Details Date Type Department Care Team ([facility] Contact Info) Description 02/28/2025 8:45 AM EDT Office Visit Pav CC Head, Neck & Respiratory [address] [facility], 2nd [place] [address] Jewel Ojeda, DO [address] [facility] [address] [place] [address] Malignant neoplasm of lower third of esophagus [...] from the original note were not included. [facility] of [facility] Department of Surgery Section of Thoracic Surgery [...] documented as of this encounter Care Teams Pinion And Wheel Truer Relationship Specialty Start Date End Date Sánchez Torres MD [address] [place] [address] [address] [place] [address] PCP - General 02/15/22 documented as of this encounter
[2025-04-09 10:14] VITALS: BMI 31.7
--- OUTSIDE RECORDS SUMMARY | 2025-04-09 10:19 | XMS_ITS | Encounter Summary ---
Author Organization [facility] Address [address] [id number] Care Team Providers Care Shaper Operator Name Role Phone Sánchez Torres MD Primary Care Provider [phone] Encounter Details Date Type Department Care Team (Late st Contact Info) Description 01/01/2025 Orders Only External Location [address] [place] [address] Provider, External Social History Tobacco Use Types [...] documented as of this encounter Care Teams Shaper Operator Relationship Specialty Start Date End Date Sánchez Torres MD [address] [place] [address] PCP - General 02/15/22 documented as of this encounter
--- OUTSIDE RECORDS SUMMARY | 2025-04-09 10:19 | XMS_ITS | Clinical Summary ---
Author Organization [facility] Address [address] [place] [id number] Care Team Providers Care Tile Classifier Name Role Phone Sánchez Torres MD Primary Care Provider [phone] Allergies No known active allergies Medications Multiple [...] (12/02/2017): Added automatically from request for surgery [id number] Obesity due to excess calories 10/06/2017 Atrial [...] Description 05/08/2025 10:30 AM EST Office Visit [facility] [address] [facility] [address] [place] [address] Wagner Jones MD [address] [facility] [address] [place] [address] Scheduled Procedures Name Priority Associated [...] history exists Medical Devices Implanted Type Area Hand Plate Stacker Device Identifier Shelf Expiration Date Model / Serial / Lot Appl Clip Savana Atriclip Pro2 40mm - [id number] Implanted:Qty: 1 on 01/02/2018 by Bucky Holland MD at [facility] Implant Heart ATRICURE 01/05/2020 [id number] / / [id number] Procedures Procedure Name Priority Date/Time Associated Diagnosis Comments HEMOGLOBIN A1C Routine 12/18/2017 12:05 PM EDT Atrial flutter, unspecified type from Last 3 Months or Most Recently Relevant to Health Maintenance Results * (ABNORMAL) Hemoglobin A1c (12/18/2017 12:05 PM EDT) Hemoglobin A1C 6.30(H) 4.80 - 5.60 % 12/18/2017 1:42 PM EDT [facility] Blood Venipuncture / Unknown 12/18/2017 12:05 PM EDT 12/18/2017 12:48 PM EDT Narrative [facility] - 12/18/2017 1:42 PM EDT The [place] [employer] recommends maintenance of Hemoglobin A1C at 7.0% or lower. Goals for Hemoglobin A1C reduction may need to be modified if hypoglycemia is a problem. us Becky Botello PA-C LAB BLOOD ORDERABLES Final R esult [facility]
[address] [place] [address], from Last 3 Months or Most Recently Relevant to Health Maintenance Insurance [employer] MEDICARE A ONLY Advance Directives * CPR (Attempt to Resuscitate) (Latest Code Status on File) Date Activated Date Inactivated Comments 01/02/2018 10:29 AM 01/03/2018 4:22 PM Question Answer Comments Code Status (Patient has no pulse and is not breathing): CPR (Attempt to Resuscitate) Medical Interventions (Patie nt has pulse or is breathing): Full Level Of Support Discussed With: Patient Care Teams Tile Classifier Relationship Specialty Start Date End Date Sánchez Torres MD [address] [facility] [address] [place] [address] PCP - General 06/25/15
--- OUTSIDE RECORDS SUMMARY | 2025-04-09 10:19 | XMS_ITS | Encounter Summary ---
Author Organization [facility] Address [address] [place] [address] Care Team Providers Care Vocational Education Professional Name Role Phone Sánchez Torres MD Primary Care Provider [phone] Encounter Details Date Type Department Care Team (Late st Contact Info) Description 02/07/2025 Orders Only External Location [address] [place] [address] Provider, External Social History Tobacco Use Types [...] documented as of this encounter Care Teams Vocational Education Professional Relationship Specialty Start Date End Date Sánchez Torres MD [address] [place] [address] PCP - General 02/15/22 documented as of this encounter
--- OUTSIDE RECORDS SUMMARY | 2025-04-09 10:19 | XMS_ITS | Encounter Summary ---
Author Organization [facility] Address [address] [place] [address] Care Team Providers Care Asset Management Analyst Name Role Phone Sánchez Torres MD Primary Care Provider [phone] Encounter Details Date Type Department Care Team (Late st Contact Info) Description 02/07/2025 Orders Only External Location [address] [place] [address] Provider, External Social History Tobacco Use Types [...] documented as of this encounter Care Teams Asset Management Analyst Relationship Specialty Start Date End Date Sánchez Torres MD [address] [place] [address] PCP - General 02/15/22 documented as of this encounter
--- OUTSIDE RECORDS SUMMARY | 2025-04-09 10:19 | XMS_ITS | Encounter Summary ---
Author Organization [facility] Address [address] [id number] Care Team Providers Care Gunsmith Apprentice Name Role Phone Sánchez Torres MD Primary Care Provider [phone] Encounter Details Date Type Department Care Team (Late st Contact Info) Description 02/25/2025 Lab Requisition [facility] [address] [place] [address] Tatiana Myrick MD [address] [facility] [address] [place] [address] Dysphagia, unspecified Social History Tobacco [...] EDT) Case Report Sugical Pathology Consult Case: [id number] Authorizing Provider: Tatiana Myrick MD Collected: 02/25/20253 Ordering Location: [facility] Lab Received: 02/25/2025 1423 Pathologist: Janell Bhatti MD Specimen: Esophagus, [id number] 02/25/2025 3:02 PM EDT [facility] Final Diagnosis ESOPHAGUS, DISTAL, BIOPSY ([id number]; 02/07/2025): - INVASIVE MODERATELY DIFFERENTIATED ADENOCARCINOMA (SEE COMMENT). 02/25/2025 3:02 PM EDT [facility] at 1502 EDT Comment Per pathology report ) 1) IHC for HER-2/yessica: negative (score of 0) 2) Immunohistochemical stains for MMR proteins: retained nuclear immunoreaction for all 4 proteins (MLH-1, MSH-2, MSH-6, and PMS-2). 3) PD-L1 combined positive score: <1 4) CLDN18 (43-14a): positive (>95% of tumor cells) 02/25/2025 3:02 PM EDT [facility] Clinical Information R13.10 - Dysphagia, unspecified [ICD-10-CM] 02/25/2025 3:02 PM EDT [facility] Gross Description A. [id number] Received along with a corresponding pathology report from [facility] are 12 slides labeled outside case: [id number] collected on 02/07/2025. 02/25/2025 3:02 PM EDT [facility] Note: A resident was involved in the service. I attest I examined the relevant preparations for the specimens and confirmed the diagnosis or interpretation. 02/25/2025 3:02 PM EDT [facility] Tissue Esophageal structure / Unknown 02/25/2025 2:23 PM EDT 02/25/2025 2:23 PM EDT us Tatiana Myrick MD LAB PATHOLOGY ORDERABLES Final Result [facility] [address] [place] [address] documented in this encounter Visit Diagnoses Diagnosis Dysphagia, unspecified documented in this encounter Additional Health Concerns Assessment Noted Time A fall risk assessment has been complete d for the patient 05/24/2022 10:42 AM EST documented as of this encounter Care Teams Gunsmith Apprentice Relationship Specialty Start Date End Date Sánchez Torres MD [address] [place] [address] [address] [place] [address] PCP - General 02/15/22 documented as of this encounter
--- OUTSIDE RECORDS SUMMARY | 2025-04-09 10:19 | XMS_ITS | Encounter Summary ---
Author Organization [facility] Address [address] [id number] Care Team Providers Care Coating Engineer Name Role Phone Sánchze Torres MD Primary Care Provider [phone] Encounter Details Date Type Department Care Team (Late st Contact Info) Description 11/21/2024 Orders Only External Location [address] [place] [address] Provider, External Social History Tobacco Use Types [...] documented as of this encounter Care Teams Coating Engineer Relationship Specialty Start Date End Date Sánchez Torres MD [address] [facility] [address] [place] [address] PCP - General 02/15/22 documented as of this encounter
--- OUTSIDE RECORDS SUMMARY | 2025-04-09 10:19 | XMS_ITS | Encounter Summary ---
Author Organization [facility] Address [address] [place] [address] Care Team Providers Care Director Integrated Name Role Phone Sánchez Torres MD Primary Care Provider [phone] Encounter Details Date Type Department Care Team (Late st Contact Info) Description 01/23/2024 Orders Only External Location [address] [place] [address] Provider, External Social History Tobacco Use Types [...] documented as of this encounter Care Teams Director Integrated Relationship Specialty Start Date End Date Sánchez Torres MD [address] [place] [address] PCP - General 02/15/22 documented as of this encounter
--- OUTSIDE RECORDS SUMMARY | 2025-04-09 10:19 | XMS_ITS | Encounter Summary ---
Author Organization [facility] Address [address] [place] [address] Care Team Providers Care Resident Doctor Name Role Phone Sánchez Torres MD Primary Care Provider [phone] Encounter Details Date Type Department Care Team (Late st Contact Info) Description 02/20/2025 Orders Only External Location [address] [place] [address] Provider, External Social History Tobacco Use Types [...] documented as of this encounter Care Teams Resident Doctor Relationship Specialty Start Date End Date Sánchez Torres MD [address] [place] [address] PCP - General 02/15/22 documented as of this encounter
--- OUTSIDE RECORDS SUMMARY | 2025-04-09 10:19 | XMS_ITS | Encounter Summary ---
Author Organization [facility] Address [address] [place] [address] Care Team Providers Care Redevelopment Specialist Name Role Phone Sánchez Torres MD Primary Care Provider [phone] Encounter Details Date Type Department Care Team (Late st Contact Info) Description 11/20/2024 Orders Only External Location [address] [place] [address] Provider, External Social History Tobacco Use Types [...] documented as of this encounter Care Teams Redevelopment Specialist Relationship Specialty Start Date End Date Sánchez Torres MD [address] [facility] [address] [place] [address] PCP - General 02/15/22 documented as of this encounter
--- OUTSIDE RECORDS SUMMARY | 2025-04-09 10:19 | XMS_ITS | Encounter Summary ---
Author Organization [facility] Address [address] [place] [address] Care Team Providers Care Sheet Metal Lay Out Worker Name Role Phone Sánchez Torres MD Primary Care Provider [phone] Encounter Details Date Type Department Care Team (Late st Contact Info) Description 11/20/2024 Orders Only External Location [address] [place] [address] Provider, External Social History Tobacco Use Types [...] documented as of this encounter Care Teams Sheet Metal Lay Out Worker Relationship Specialty Start Date End Date Sánchez Torres MD [address] [facility] [address] [place] [address] PCP - General 02/15/22 documented as of this encounter
--- OUTSIDE RECORDS SUMMARY | 2025-04-09 10:19 | XMS_ITS | Encounter Summary ---
Author Organization [facility] Address [address] [place] [address] Care Team Providers Care Cut Off Worker Name Role Phone Sánchez Torres MD Primary Care Provider [phone] Encounter Details Date Type Department Care Team (Late st Contact Info) Description 01/02/2025 Orders Only External Location [address] [place] [address] Provider, External Social History Tobacco Use Types [...] documented as of this encounter Care Teams Cut Off Worker Relationship Specialty Start Date End Date Sánchez Torres MD [address] [facility] [address] [place] [address] PCP - General 02/15/22 documented as of this encounter
--- OUTSIDE RECORDS SUMMARY | 2025-04-09 10:19 | XMS_ITS | Encounter Summary ---
Author Organization [facility] Address [address] [id number] Care Team Providers Care Resort Manager Name Role Phone Sánchez Torres MD Primary Care Provider [phone] Encounter Details Date Type Department Care Team (Late st Contact Info) Description 01/09/2025 Orders Only External Location [address] [place] [address] Gus Dee PA [address] [id number] Social History Tobacco Use Types Packs/Day Years [...] documented as of this encounter Care Teams Resort Manager Relationship Specialty Start Date End Date Sánchez Torres MD [address] [facility] [address] [place] [address] PCP - General 02/15/22 documented as of this encounter
--- OUTSIDE RECORDS SUMMARY | 2025-04-09 10:20 | XMS_ITS | Encounter Summary ---
Author Organization [facility] Address [facility] [address] [address] [address] Care Team Providers Care Sas Programmer Remote Name Role Phone Sánchez Torres MD Primary Care Provider [phone] Encounter Details Date Type Department Care Team [...] documented as of this encounter Care Teams Sas Programmer Remote Relationship Specialty Start Date End Date Sánchez Torres MD [address] [facility] [address] [place] [address] PCP - General 02/15/22 documented as of this encounter
--- OUTSIDE RECORDS SUMMARY | 2025-04-09 10:20 | XMS_ITS | Clinical Summary ---
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); Obesity (BMI 35.0-39.9 without comorbidity) 02/28/2025 Travel 02/25/2025 Lab Requisition [facility] [address] [place] [address] Tatiana Myrick MD Dysphagia, unspecified 02/20/2025 Orders Only External Location [address] [place] [address] Provider, External 02/07/2025 Orders Only External Location [address] [place] [address] Provider, External 02/07/2025 Orders Only External Location [address] [place] [address] Provider, External 01/09/2025 Orders Only External Location [address] [place] [phone] Gus Dee PA from Last 3 Months Family History Medical [...] or (1 - 1-dose 75+ series) 2022 [id number] Vaccine (7 - Moderna risk season) 2025 [...] ABDOMEN OUTSIDE IMAGES 01/09/2025 10:56 AM EDT from Last 3 Months Results * Surgical Pathology Consult (02/25/2025 2:23 PM EDT) Case Report Sugical Pathology Consult Case: [id number] Authorizing Provider: Tatiana Myrick MD Collected: 02/25/20253 Ordering Location: [facility] Lab Received: 02/25/2025 1423 Pathologist: Janell Bhatti MD Specimen: Esophagus, [id number] 02/25/2025 3:02 PM EDT [facility] Final Diagnosis ESOPHAGUS, DISTAL, BIOPSY ([id number]; 02/07/2025): - INVASIVE MODERATELY DIFFERENTIATED ADENOCARCINOMA (SEE COMMENT). 02/25/2025 3:02 PM EDT [facility] at 1502 EDT Comment Per pathology report ) 1) IHC for HER-2/yessica: negative (score of 0) 2) Immunohistochemical stains for MMR proteins: retained nuclear immunoreaction for all 4 proteins (MLH-1, MSH-2, MSH-6, and PMS-2). 3) PD-L1 combined positive score: <1 4) CLDN18 (43-14a): positive (>95% of tumor cells) 02/25/2025 3:02 PM EDT [facility] Clinical Information R13.10 - Dysphagia, unspecified [ICD-10-CM] 02/25/2025 3:02 PM EDT [facility] Gross Description A. [id number] Received along with a corresponding pathology report from [facility] are 12 slides labeled outside case: [id number] collected on 02/07/2025. 02/25/2025 3:02 PM EDT [...] Final Result [facility] [address] [place] [address] * CT NEURO OUTSIDE IMAGES (02/20/2025 10:07 [...] MRI PROCEDURES Edited Resu lt - Final from Last 3 [place] [address] [facility] Care Teams Glass Setter Relationship Specialty Start Date End Date Sánchez Torres MD [address] [place] [address] [address] [place] [address] PCP - General 02/15/22
--- OUTSIDE RECORDS SUMMARY | 2025-04-09 10:20 | XMS_ITS | Encounter Summary ---
Author Organization [facility] Address [address] [place] [address] Care Team Providers Care Rural Mail Contractor Name Role Phone Sánchez Torres MD Primary Care Provider [phone] Reason for Visit * Reason Onset Date Comments STEFANO Nurse Liaison call 03/01/2025 Encounter Details Date Type Department Care Team (Late st Contact Info) Description 03/01/2025 Telephone [facility] [address] [facility], [address]nd [place] [address] Michelle Castellanos [place] [phone] STEFANO Nurse Liaison call Social History Tobacco [...] Lemos : 1945 Date: 03/01/25 Referred to [facility] by: Dr. Hever Conley Affiliate Site: [facility] Services Provided: Pre/Post Appointment Phone Call Educated On: STEFANO Nurse Liaison/Psych Oncology Services Patient was referred to [facility] by his local medical oncologist. STEFANO Nurse Liaison contacted the patient for a post appointment phone call. Explained liaison services as well as other resources at [facility] including those available through Psych Oncology [...] documented as of this encounter Care Teams Rural Mail Contractor Relationship Specialty Start Date End Date Sánchez Torres MD [address] [place] [address] [address] [place] [address] PCP - General 02/15/22 documented as of this encounter
[2025-04-09 10:47] LABS: Hematocrit 38.4 % (42.0-52.0); Hemoglobin 13.0 g/dL (14.1-18.0); Immature Granulocytes % 1.3 %; Mean Corpuscular HGB Conc 33.9 g/dL (31.8-35.4); Mean Corpuscular Hemoglobin 29.4 pg (27.0-31.2); Mean Corpuscular Volume 86.9 fl (80-94); Nucleated Red Blood Cells % 0 %; Platelet Count 227 K/mm3 (142-424); Red Blood Count 4.42 M/mm3 (4.60-6.20); Red Cell Distribution Width-SD 41.5 fL; White Blood Count 4.5 K/mm3 (4.8-10.8)
[2025-04-09 10:57] LABS: Alanine Aminotransferase 20 U/L (12-78); Albumin Level 3.8 g/dl (3.5-5.0); Albumin/Globulin Ratio 1.2 (1.1-1.8); Alkaline Phosphatase 58 U/L (38-126); Anion Gap 9.5 mEq/L (5-15); Aspartate Amino Transferase 23 U/L (17-59); Bilirubin,Total 0.6 mg/dl (0.2-1.3); Blood Urea Nitrogen 13 mg/dl (9-20); Calcium 8.4 mg/dl (8.4-10.2); Carbon Dioxide 27 mmol/L (22.0-30.0); Chloride 99 mmol/L (98-107); Creatinine Clearance Estimated 91 mL/min (50-200); Creatinine,Serum 0.70 mg/dl (0.66-1.25); Estimated Glomerular Filt Rate 109 ml/min (>60); GFR (African American) 132 ML/MIN (>60); Globulin 3.2 g/dL (1.3-3.2); Glucose 121 mg/dl (74-100); Potassium 4.5 mmoL/L (3.5-5.1); Sodium 131 mmol/L (136-145); Total Protein,Serum 7.0 g/dl (6.3-8.2)
[2025-04-09] MEDS: ONDANSETRON 4MG ODT 16 MG SL (11:15)
[2025-04-09] MEDS: DEXAMETHASONE 4MG TABLET 12 MG PO (11:15)
[2025-04-09] MEDS: LORATADINE 10MG TABLET 10 MG PO (11:15)
[2025-04-09] MEDS: FAMOTIDINE 20MG TABLET 20 MG PO (11:15)
[2025-04-09 11:55] VITALS: BP 125/78; PULSE 72; RESP 18; O2SAT 98
[2025-04-09] MEDS: PACLITAXEL IV (11:55)
[2025-04-09] MEDS: WATER IV (11:55)
[2025-04-09] MEDS: DEXTROSE 5% IV (11:55)
[2025-04-09 12:56] VITALS: BP 118/76; PULSE 73; RESP 18; O2SAT 98
[2025-04-09 13:05] VITALS: BP 128/71; PULSE 76; RESP 18; O2SAT 98
[2025-04-09] MEDS: CARBOPLATIN IV (13:05)
[2025-04-09] MEDS: SODIUM CHLORIDE 0.9% IV (13:05)
[2025-04-09 13:45] VITALS: BP 120/73; PULSE 76; RESP 18; O2SAT 98
== END 2025-04-09 23:59 | disposition home or self-care (01) ==
LOC: INF 10:13
PROVIDERS: PCP Internal Medicine; Visit Provider Internal Medicine Medical Oncology
DX: C15.9 Malignant neoplasm of esophagus, unspecified (principal); Z51.11 Encounter for antineoplastic chemotherapy
CPT/HCPCS: 80053; 85025; 96413; 96415; 96417; J7060; J8540; J9045; J9267; Q0162

== ENCOUNTER 2025-04-16 10:10 | Outpatient (CLI) | payer BC, SELFPAY ==
--- OUTSIDE RECORDS SUMMARY | 2025-02-28 07:45 | XMS_ITS | Encounter Summary ---
Author Organization [facility] Address [address] [place] [address] Care Team Providers Care Maid Cleaning Cooking Name Role Phone Sánchez Torres MD Primary Care Provider [phone] Reason for Visit * Reason Comments New Patient * Consultation (Routine) - Closed Specialty Diagnoses / Procedures Referred By Paulette t Referred To Contact Cardiothoracic Surgery Diagnoses Esophageal adenocarcinoma Hever Conley MD [address] [place] [id number] Phone: tel: fax: Cardiothoracic Surgery [address] [place] [address] Phone: tel:[phone] Referral ID Status Reason Start Date Expiration Date V isits Requested Visits Authorized [id number] Closed Specialty Services Required 02/22/2025 08/24/2026 1 1 Encounter Details Date Type Department Care Team ([facility] Contact Info) Description 02/28/2025 8:45 AM EDT Office Visit [facility] CC Head, Neck & Respiratory [address] [facility], 2nd [place] [address] Jewel Ojeda, DO [address] [facility] [address] [place] [address] Malignant neoplasm of lower third of esophagus (CMS/HCC) (Primary Dx); Obesity (BMI 35.0-39.9 without comorbidity) Social History Tobacco Use Types Packs/Day Years Used Date Smoking Tobacco: Never Smokeless Tobacco: Never Alcohol Use Standard Drinks/Week Comments Not Currently 0 (1 standard drink = 0.6 oz pur e alcohol) Sex and Gender Information Value Date Recorded Sex Assigned at Not on file Legal Sex Male 8:13 PM EDT Gender Identity Not on file Sexual Orientation Not on file documented as of this encounter Last Filed Vital Signs Vital Sign Reading Time Taken Comments Blood Pressure 168/71 02/28/2025 9:07 AM EDT rec heck Pulse 67 02/28/2025 8:56 AM EDT Temperature 36.4 C (97.6 F) 02/28/2025 8:56 AM EDT Respiratory Rate 16 02/28/2025 8:56 AM EDT Oxygen Saturation 99% 02/28/2025 8:56 AM EDT Inhaled Oxygen Concentration - - Weight 107 kg (235 lb 7.2 oz) 02/28/2025 8:56 AM EDT Height 182.9 cm (6') 02/28/2025 8:56 AM EDT Body Mass Index 31.93 02/28/2025 8:56 AM EDT documented in this encounter Functional Status * Calculated C-SSRS Risk Score (Lifetime/Recent) Answer Date of Assessment Author No Risk Indicated 02/28/2025 8:54 AM EDT Ana María Lujan * Question Answer Date of Assessment Author 1. Wish to be (Past 1 Month) No 025 8:54 AM EDT Ana María Lujan 2. Non-Specific Active Suici carlos Thoughts (Past 1 Month) No 02/28/2025 8:54 AM EDT Leti Lujan 6. Suicidal Behavior (Lifetime) No 8:54 AM EDT Ana María Lujan documented as of this encounter Miscellaneous Notes * Progress Notes - Beth Hardwick MD - 02/28/2025 8:45 AM EDT Images from the original note were not included. [facility] Department of Surgery Section of Thoracic Surgery History & Physical Note Consulting MD: Dr. Hever Conley Reason for Consultation/Chief complaint: newly diagnosed adenocarcinoma of distal esophagus History of Present Illness: Hever Elia Lmeos is a 79 y.o. male w/ PMH GERD, HTN, Afib s/p left VATS w/ left atrial appendage ligation currently on metoprolol, STEMI in 11/2024 s/p PCI currently on Plavix who presents to the outpatient clinic for newly diagnosed adenocarcinoma of the distal esophagus. Patient presented to [facility] ED in 12/2024 with hematochezia and melena after starting plavix and aspirin. Aspirin discontinued, CT Chest/A/P showed 1.5 cm thickening of the distal esophagus. EGD completed and showed circumferential, friable, fungating mass 37 cm to 42 cm from the incisors. PET/CT on 02/20 showed no evidence of metastasis. Patient states other than some dysphagia with dry foods and his initial GI bleed, he has been relatively asymptomatic. He states he is in constant afib but declined anticoagulation which is why he has the CAIO occlusion. Denied history of smoking or alcohol use. Past Medical History: Past Medical History Pertinent Negatives[1] Past Surgical History: Surgical History[2] Left VATS Social History: Tobacco - never smoker Alcohol - none Drugs - none Family Medical History: family history includes Heart disease in his father; Stroke in his father. Allergies: Allergies[3] Home Medications: Current Medications[4] ROS: General: no fevers or chills, no heat or cold intolerance, no subjective weight loss HEENT: no changes in vision, no sore throat, no changes in hearing, no tinnitus, no nasal drainage CV: no chest pain, no palpitations, no lightheadedness, no PND, no orthopnea, no LE swelling, no claudication Pulm: no shortness of breath, no cough, no hemoptysis GI: no nausea, no vomiting, no abdominal pain, no constipation, no diarrhea, no melena, no hematochezia, no dysphagia, no heartburn Skin: no rash Neuro: no numbness, no tingling, no headache, no difficulties with speech, no gait disturbance Heme: no easy bruising, no bleeding from the gums Endo: No polyuria or polydypsia Psych: no depression or anxiety Physical exam: Visit Vitals BP (!) 168/71 Comment: recheck Pulse 67 Temp 36.4 ??C (97.6 ??F) (Oral) Ht 1.829 m (6') Wt 107 kg (235 lb 7.2 oz) SpO2 99% BMI 31.93 kg/m?? General: alert and oriented, appropriate Lungs: CTA B, no wheezes or rhonchi Heart: RRR, no murmurs Abdomen: soft NT/ND, normal bowel sounds Lymph nodes: no palpable supraclavicular or cervical adenopathy Extremities: no peripheral edema Skin: no rash, no cyanosis and warm to touch Psychiatric: oriented to person/place/time and normal mood/affect Imaging: I independently visualized the imaging which includes: PET/CT: hypermetabolism at the GE junction consistent with diagnosis of malignancy; no evidence of metastasis CT A/P: with wall thickening, approximately 1.5 cm Additional testing: Pathology: invasive adenocarcinoma, moderately differentiated, MSI-stable Assessment and Plan: Hever Lemos is a 79 y.o. male who presents per above. We had a jody and candid discussion with the patient regarding clinical stage in the importance of multimodality care in the treatment ofesophageal cancer. Patient imaging and pathology reviewed - we discussed that based on the circumferentially description endoscopically as well as a 5 cm length tumor that this is at least a long segment T2 versus clinical T3 lesion. In this setting we did discuss that survival is improved with neoadjuvant treatment followed by restaging and surgical resection. We discussed findings with patient with plan to return to clinic after completion of neoadjuvant therapy. Patient questions were answered and patient was agreeable. Will plan to see patient back following completion of chemoradiation. At that time we will plan for a restaging PET-CT, pulmonary function tests as well as echocardiogram Beth Hardwick MD 02/28/25 9:32 AM [1] Past Medical History: Diagnosis Date A-fib (CMS/HCC) Hernia [2] Past Surgical History: Procedure Laterality Date ATRIAL ABLATION SURGERY CARDIAC CATH HIS ABLATION HERNIA REPAIR [3] No Known Allergies [4] Current Outpatient Medications: atorvastatin (Lipitor) 40 MG tablet, Take 1 tablet by mouth nightly., Disp: , Rfl: clopidogrel (Plavix) 75 MG tablet, daily., Disp: , Rfl: famotidine (Pepcid) 40 MG tablet, 2 times a day., Disp: , Rfl: losartan (Cozaar) 50 MG tablet, Take 1 tablet by mouth daily., Disp: , Rfl: metFORMIN (Glucophage) 500 MG tablet, TAKE ONE TABLET BY MOUTH TWICE DAILY FOR sugar --TAKE WITH FOOD--, Disp: , Rfl: metoprolol tartrate (Lopressor) 100 MG tablet, Take 100 mg by mouth 2 (two) times a day., Disp: , Rfl: nitroglycerin (Nitrostat) 0.4 MG SL tablet, 1 tablet., Disp: , Rfl: pantoprazole (Protonix) 40 MG EC tablet, daily., Disp: , Rfl: amLODIPine (Norvasc) 5 MG tablet, Take 5 mg by mouth 1 (one) time each day. (Patient not taking: Reported on 02/28/2025), Disp: , Rfl: aspirin 81 MG EC tablet, Take 81 mg by mouth 1 (one) time each day. (Patient not taking: Reported on 02/28/2025), Disp: , Rfl: Cosigned by Jewel Ojeda DO at 03/01/2025 5:05 PM EDT Associated attestation - Jewel Ojeda DO - 03/01/2025 5:05 PM EDT I saw and evaluated the patient with the resident/fellow. I discussed the case with the resident/fellow and agree with the findings and plan as documented. documented in this encounter Plan of Treatment Not on file documented as of this encounter Visit Diagnoses Diagnosis Malignant neoplasm of lower third of esophagus- Primary Obesity (BMI 35.0-39.9 without comorbidity) documented in this encounter Additional Health Concerns Assessment Noted Time A fall risk assessment has been complete d for the patient 02/28/2025 8:54 AM EDT A Body Mass Index follow-up plan has been documented for the patient 03/01/2025 5:05 PM EDT documented as of this encounter Care Teams Maid Cleaning Cooking Relationship Specialty Start Date End Date Sánchez Torres MD [address] [place] [address] [address] [place] [address] PCP - General 02/15/22 documented as of this encounter
[2025-04-16 10:14] VITALS: BMI 31.7
--- OUTSIDE RECORDS SUMMARY | 2025-04-16 10:19 | XMS_ITS | Encounter Summary ---
Author Organization [facility] Address [address] [address] Care Team Providers Care Rn Team Leader Name Role Phone Sánchez Torres MD Primary Care Provider [phone] Encounter Details Date Type Department Care Team (Late st Contact Info) Description 02/25/2025 Lab Requisition [facility] [address] [place] [address] Tatiana Myrick MD [address] [facility] [address] [place] [address] Dysphagia, unspecified Social History Tobacco [...] EDT) Case Report Sugical Pathology Consult Case: [id number] Authorizing Provider: Tatiana Myrick MD Collected: 02/25/20253 Ordering Location: [facility] Lab Received: 02/25/2025 1423 Pathologist: Janell Bhatti MD Specimen: Esophagus, [id number] 02/25/2025 3:02 PM EDT [facility] Final Diagnosis ESOPHAGUS, DISTAL, BIOPSY ([id number]; 02/07/2025): - INVASIVE MODERATELY DIFFERENTIATED ADENOCARCINOMA (SEE COMMENT). 02/25/2025 3:02 PM EDT [facility] at 1502 EDT Comment Per pathology report ) 1) IHC for HER-2/yessica: negative (score of 0) 2) Immunohistochemical stains for MMR proteins: retained nuclear immunoreaction for all 4 proteins (MLH-1, MSH-2, MSH-6, and PMS-2). 3) PD-L1 combined positive score: <1 4) CLDN18 (43-14a): positive (>95% of tumor cells) 02/25/2025 3:02 PM EDT [facility] Clinical Information R13.10 - Dysphagia, unspecified [ICD-10-CM] 02/25/2025 3:02 PM EDT [facility] Gross Description A. [id number] Received along with a corresponding pathology report from [facility] are 12 slides labeled outside case: [id number] collected on 02/07/2025. 02/25/2025 3:02 PM EDT [facility] Note: A resident was involved in the service. I attest I examined the relevant preparations for the specimens and confirmed the diagnosis or interpretation. 02/25/2025 3:02 PM EDT [facility] Tissue Esophageal structure / Unknown 02/25/2025 2:23 PM EDT 02/25/2025 2:23 PM EDT us Tatiana Myrick MD LAB PATHOLOGY ORDERABLES Final Result [facility] [address] [place] [address] documented in this encounter Visit Diagnoses Diagnosis Dysphagia, unspecified documented in this encounter Additional Health Concerns Assessment Noted Time A fall risk assessment has been complete d for the patient 05/24/2022 10:42 AM EST documented as of this encounter Care Teams Rn Team Leader Relationship Specialty Start Date End Date Sánchez Torres MD [address] [place] [address] [address] [place] [address] PCP - General 02/15/22 documented as of this encounter
--- OUTSIDE RECORDS SUMMARY | 2025-04-16 10:19 | XMS_ITS | Encounter Summary ---
Author Organization [facility] Address [address] [place] [address] Care Team Providers Care Cutter And Paster Press Clippings Name Role Phone Sánchez Torres MD Primary Care Provider [phone] Encounter Details Date Type Department Care Team (Late st Contact Info) Description 01/02/2025 Orders Only External Location [address] [place] [address] Provider, External Social History Tobacco Use Types [...] documented as of this encounter Care Teams Cutter And Paster Press Clippings Relationship Specialty Start Date End Date Sánchez Torres MD [address] [facility] [address] [place] [address] PCP - General 02/15/22 documented as of this encounter
--- OUTSIDE RECORDS SUMMARY | 2025-04-16 10:19 | XMS_ITS | Encounter Summary ---
Author Organization [facility] Address [address] [id number] Care Team Providers Care Apartment Leasing Specialist Name Role Phone Sánchez Torres MD Primary Care Provider [phone] Encounter Details Date Type Department Care Team (Late st Contact Info) Description 01/09/2025 Orders Only External Location [address] [place] [address] Gus Dee PA [address] [id number] Social History Tobacco Use Types Packs/Day Years [...] documented as of this encounter Care Teams Apartment Leasing Specialist Relationship Specialty Start Date End Date Sánchez Torres MD [address] [facility] [address] [place] [address] PCP - General 02/15/22 documented as of this encounter
--- OUTSIDE RECORDS SUMMARY | 2025-04-16 10:19 | XMS_ITS | Encounter Summary ---
Author Organization [facility] Address [address] [place] [address] Care Team Providers Care Inside Sales Executive Name Role Phone Sánchez Torres MD Primary Care Provider [phone] Encounter Details Date Type Department Care Team (Late st Contact Info) Description 02/20/2025 Orders Only External Location [address] [place] [address] Provider, External Social History Tobacco Use Types [...] documented as of this encounter Care Teams Inside Sales Executive Relationship Specialty Start Date End Date Sánchez Torres MD [address] [place] [address] PCP - General 02/15/22 documented as of this encounter
--- OUTSIDE RECORDS SUMMARY | 2025-04-16 10:19 | XMS_ITS | Encounter Summary ---
Author Organization [facility] Address [address] [place] [address] Care Team Providers Care Ground Services Instructor Name Role Phone Sánchez Torres MD Primary Care Provider [phone] Encounter Details Date Type Department Care Team (Late st Contact Info) Description 02/07/2025 Orders Only External Location [address] [place] [address] Provider, External Social History Tobacco Use Types [...] documented as of this encounter Care Teams Ground Services Instructor Relationship Specialty Start Date End Date Sánchez Torres MD [address] [place] [address] PCP - General 02/15/22 documented as of this encounter
--- OUTSIDE RECORDS SUMMARY | 2025-04-16 10:19 | XMS_ITS | Encounter Summary ---
Author Organization [facility] Address [address] [place] [address] Care Team Providers Care Audio Visual Manager Name Role Phone Sánchez Torres MD Primary Care Provider [phone] Encounter Details Date Type Department Care Team (Late st Contact Info) Description 02/07/2025 Orders Only External Location [address] [place] [address] Provider, External Social History Tobacco Use Types [...] documented as of this encounter Care Teams Audio Visual Manager Relationship Specialty Start Date End Date Sánchez Torres MD [address] [place] [address] PCP - General 02/15/22 documented as of this encounter
--- OUTSIDE RECORDS SUMMARY | 2025-04-16 10:20 | XMS_ITS | Clinical Summary ---
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); Obesity (BMI 35.0-39.9 without comorbidity) 02/28/2025 Travel 02/25/2025 Lab Requisition [facility] [address] Tatiana Myrick MD Dysphagia, unspecified 02/20/2025 Orders Only External Location [address] [address] Provider, External 02/07/2025 Orders Only External Location [address] [place], [place] [address] Provider, External 02/07/2025 Orders Only External Location [address] [place] [address] Provider, External from Last 3 Months Family [...] or (1 - 1-dose 75+ series) 2022 [id number] Vaccine ( season) 2025 03/22/2024, 04/14/2023, 02/27/2022, Additional history [...] THORACIC OUTSIDE IMAGES 02/07/2025 10:15 AM EDT from Last 3 Months Results * Surgical Pathology Consult (02/25/2025 2:23 PM EDT) Case Report Sugical Pathology Consult Case: [id number] Authorizing Provider: Tatiana Myrick MD Collected: 02/25/20251422 Ordering Location: [facility] Lab Received: 02/25/20251422 Pathologist: Janell Bhatti MD Specimen: Esophagus, [id number] 02/25/2025 3:02 PM EDT [facility] Final Diagnosis ESOPHAGUS, DISTAL, BIOPSY ([id number]; 02/07/2025): - INVASIVE MODERATELY DIFFERENTIATED ADENOCARCINOMA (SEE COMMENT). 02/25/2025 3:02 PM EDT [facility] at 1502 EDT Comment Per pathology report ) 1) IHC for HER-2/yessica: negative (score of 0) 2) Immunohistochemical stains for MMR proteins: retained nuclear immunoreaction for all 4 proteins (MLH-1, MSH-2, MSH-6, and PMS-2). 3) PD-L1 combined positive score: <1 4) CLDN18 (43-14a): positive (>95% of tumor cells) 02/25/2025 3:02 PM EDT [facility] Clinical Information R13.10 - Dysphagia, unspecified [ICD-10-CM] 02/25/2025 3:02 PM EDT [facility] Gross Description A. [id number] Received along with a corresponding pathology report from [facility] are 12 slides labeled outside case: [id number] collected on 02/07/2025. 02/25/2025 3:02 PM EDT [facility] Note: A resident was involved in the service. I attest I examined the relevant preparations for the specimens and confirmed the diagnosis or interpretation. 02/25/2025 3:02 PM EDT [facility] Tissue Esophageal structure / Unknown 02/25/2025 2:23 PM EDT 02/25/2025 2:23 PM EDT us Tatiana Myrick MD LAB PATHOLOGY ORDERABLES Final Result [facility] [address] [place] [address] * CT NEURO OUTSIDE IMAGES (02/20/2025 10:07 [...] CT PROCEDURES Edited Resul t - Final from Last 3 Months [place] [address] ASHLEY Care Teams Automobile Mechanic Relationship Specialty Start Date End Date Sánchez Torres MD [address] [place] [address] [address] [place] [address] PCP - General 02/15/22
--- OUTSIDE RECORDS SUMMARY | 2025-04-16 10:20 | XMS_ITS | Encounter Summary ---
Author Organization [facility] Address [address] [place] [address] Care Team Providers Care Corporate Legal Intern Name Role Phone Sánchez Torres MD Primary Care Provider [phone] Reason for Visit * Reason Onset Date Comments STEFANO Nurse Liaison call 03/01/2025 Encounter Details Date Type Department Care Team (Late st Contact Info) Description 03/01/2025 Telephone [facility] Head[facility] Neck & Respiratory 800 [facility], 2nd [place] [address] Michelle Castellanos [address] [phone] STEFANO Nurse Liaison call Social History Tobacco [...] Lemos : 1945 Date: 03/01/25 Referred to [facility] by: Dr. Hever Conley Affiliate Site: [facility] Services Provided: Pre/Post Appointment Phone Call Educated On: STEFANO Nurse Liaison/Psych Oncology Services Patient was referred to [facility] by his local medical oncologist. STEFANO Nurse Liaison contacted the patient for a post appointment phone call. Explained liaison services as well as other resources at [facility] including those available through Psych Oncology services, [...] documented as of this encounter Care Teams Corporate Legal Intern Relationship Specialty Start Date End Date Sánchez Torres MD [address] [place] [address] [address] [place] [address] PCP - General 02/15/22 documented as of this encounter
--- OUTSIDE RECORDS SUMMARY | 2025-04-16 10:20 | XMS_ITS | Encounter Summary ---
Author Organization [facility] Address [address] [place] [address] Care Team Providers Care Reserve Officer Name Role Phone Sánchez Torres MD Primary Care Provider [phone] Encounter Details Date Type Department Care Team (Late st Contact Info) Description 01/23/2024 Orders Only External Location [address] [place] [address] Provider, External Social History Tobacco Use Types [...] documented as of this encounter Care Teams Reserve Officer Relationship Specialty Start Date End Date Sánchez Torres MD [address] [place] [address] PCP - General 02/15/22 documented as of this encounter
--- OUTSIDE RECORDS SUMMARY | 2025-04-16 10:20 | XMS_ITS | Encounter Summary ---
Author Organization [facility] Address [facility] [id number] Care Team Providers Care Exhibits Curator Name Role Phone Sánchez Torres MD Primary Care Provider [phone] Encounter Details Date Type Department Care Team [...] Indicated 02/28/2025 8:54 AM EDT Ana María Luajn * Question Answer Date of Assessment Author [...] documented as of this encounter Care Teams Exhibits Curator Relationship Specialty Start Date End Date Sánchez Torres MD [address] [facility] [address] [place] [id number] PCP - General 02/15/22 documented as of this encounter
--- OUTSIDE RECORDS SUMMARY | 2025-04-16 10:20 | XMS_ITS | Encounter Summary ---
Author Organization [facility] Address [address] [id number] Care Team Providers Care Automotive Sales Associate Name Role Phone Sánchez Torres MD Primary Care Provider [phone] Encounter Details Date Type Department Care Team (Late st Contact Info) Description 11/21/2024 Orders Only External Location [address] [place] [address] Provider, External Social History Tobacco Use Types [...] documented as of this encounter Care Teams Automotive Sales Associate Relationship Specialty Start Date End Date Sánchez Torres MD [address] [facility] [address] [place] [address] PCP - General 02/15/22 documented as of this encounter
--- OUTSIDE RECORDS SUMMARY | 2025-04-16 10:20 | XMS_ITS | Encounter Summary ---
Author Organization [facility] Address [address] [place] [address] Care Team Providers Care Supervisor Chemical Name Role Phone Sánchez Torres MD Primary Care Provider [phone] Encounter Details Date Type Department Care Team (Late st Contact Info) Description 11/20/2024 Orders Only External Location [address] [place] [address] Provider, External Social History Tobacco Use Types [...] documented as of this encounter Care Teams Supervisor Chemical Relationship Specialty Start Date End Date Sánchez Torres MD [address] [facility] [address] [place] [address] PCP - General 02/15/22 documented as of this encounter
--- OUTSIDE RECORDS SUMMARY | 2025-04-16 10:20 | XMS_ITS | Encounter Summary ---
Author Organization [facility] Address [address] [place] [address] Care Team Providers Care Sheet Sewer Name Role Phone Sánchez Torres MD Primary Care Provider [phone] Encounter Details Date Type Department Care Team (Late st Contact Info) Description 01/01/2025 Orders Only External Location [address] [place] [address] Provider, External Social History Tobacco Use Types [...] as of this encounter Care Teams Sheet Sewer Relationship Specialty Start Date End Date Sánchez Torres MD [address] [place] [address] PCP - General 02/15/22 documented as of this encounter
--- OUTSIDE RECORDS SUMMARY | 2025-04-16 10:20 | XMS_ITS ---
Author Organization Unknown ENCOUNTERS Encounter Performer Location Date Diagnosis Diagnosis Status Pre Admit [id number] [facility] [address] [place] [address] [id number] Emergency [address] [place] [address] [phone] [facility] Inpatient Frantz Lemon [address] [place] [address] [phone] [facility] Pre Admit Diane Olson [address] [place] [address] [phone] Emergency Aly Christianson[address] [place] [address] [phone] A Emergency [address] [place] [address] [phone] [facility] Pre Admit [address] [place] [address] [phone] *Note: Encounters from your own facility or health system may be excluded. Allergies, Adverse Reactions, Alerts Allergen Type Severity Identification Date Medications Name Date Quantity Days Supplied GPI Number
--- OUTSIDE RECORDS SUMMARY | 2025-04-16 10:20 | XMS_ITS | Encounter Summary ---
Author Organization [facility] Address [address] [place] [address] Care Team Providers Care Youth Minister Name Role Phone Sánchez Torres MD Primary Care Provider [phone] Encounter Details Date Type Department Care Team (Late st Contact Info) Description 11/20/2024 Orders Only External Location [address] [place] [address] Provider, External Social History Tobacco Use Types [...] documented as of this encounter Care Teams Youth Minister Relationship Specialty Start Date End Date Sánchez Torres MD 12[address] [facility] [address] [place] [address] PCP - General 02/15/22 documented as of this encounter
--- OUTSIDE RECORDS SUMMARY | 2025-04-16 10:20 | XMS_ITS | Clinical Summary ---
Author Organization [facility] Address [address] [place] [id number] Care Team Providers Care Video Poker Floorman Name Role Phone Sánchez Torres MD Primary Care Provider [phone] Allergies No known active allergies Medications Multiple [...] (12/02/2017): Added automatically from request for surgery [id number] Obesity due to excess calories 10/06/2017 Atrial [...] Description 05/08/2025 10:30 AM EST Office Visit [facility] [address] [facility] [address] [place] [address] Wagner Jones MD [address] [facility] [address] [place] [address] Scheduled Procedures Name Priority Associated [...] history exists Medical Devices Implanted Type Area Park Activities Coordinator Device Identifier Shelf Expiration Date Model / Serial / Lot Appl Clip Savana Atriclip Pro2 40mm - [id number] Implanted:Qty: 1 on 01/02/2018 by Bucky Holland MD at [facility] Implant Heart ATRICURE 01/05/2020 [id number] / / [id number] Procedures Procedure Name Priority Date/Time Associated Diagnosis Comments HEMOGLOBIN A1C Routine 12/18/2017 12:05 PM EDT Atrial flutter, unspecified type from Last 3 Months or Most Recently Relevant to Health Maintenance Results * (ABNORMAL) Hemoglobin A1c (12/18/2017 12:05 PM EDT) Hemoglobin A1C 6.30(H) 4.80 - 5.60 % 12/18/2017 1:42 PM EDT [facility] Blood Venipuncture / Unknown 12/18/2017 12:05 PM EDT 12/18/2017 12:48 PM EDT Narrative [facility] - 12/18/2017 1:42 PM EDT The [place] [employer] recommends maintenance of Hemoglobin A1C at 7.0% or lower. Goals for Hemoglobin A1C reduction may need to be modified if hypoglycemia is a problem. us Becky Botello PA-C LAB BLOOD ORDERABLES Final R esult [facility]
[address] [place] [address], from Last 3 Months or Most Recently Relevant to Health Maintenance Insurance ASHLEY [employer] MEDICARE A ONLY Advance Directives * CPR (Attempt to Resuscitate) (Latest Code Status on File) Date Activated Date Inactivated Comments 01/02/2018 10:29 AM 01/03/2018 4:22 PM Question Answer Comments Code Status (Patient has no pulse and is not breathing): CPR (Attempt to Resuscitate) Medical Interventions (Patie nt has pulse or is breathing): Full Level Of Support Discussed With: Patient Care Teams Video Poker Floorman Relationship Specialty Start Date End Date Sánchez Torres MD [address] [facility] [address] [place] [address] PCP - General 06/25/15
[2025-04-16 10:23] LABS: Hematocrit 38.1 % (42.0-52.0); Hemoglobin 12.9 g/dL (14.1-18.0); Immature Granulocytes % 0.3 %; Mean Corpuscular HGB Conc 33.9 g/dL (31.8-35.4); Mean Corpuscular Hemoglobin 29.5 pg (27.0-31.2); Mean Corpuscular Volume 87.2 fl (80-94); Nucleated Red Blood Cells % 0 %; Platelet Count 183 K/mm3 (142-424); Red Blood Count 4.37 M/mm3 (4.60-6.20); Red Cell Distribution Width-SD 43.1 fL; White Blood Count 3.3 K/mm3 (4.8-10.8)
[2025-04-16 10:34] LABS: Alanine Aminotransferase 24 U/L (12-78); Albumin Level 3.9 g/dl (3.5-5.0); Albumin/Globulin Ratio 1.3 (1.1-1.8); Alkaline Phosphatase 58 U/L (38-126); Anion Gap 8.6 mEq/L (5-15); Aspartate Amino Transferase 25 U/L (17-59); Bilirubin,Total 0.8 mg/dl (0.2-1.3); Blood Urea Nitrogen 12 mg/dl (9-20); Calcium 8.8 mg/dl (8.4-10.2); Carbon Dioxide 27 mmol/L (22.0-30.0); Chloride 101 mmol/L (98-107); Creatinine Clearance Estimated 91 mL/min (50-200); Creatinine,Serum 0.70 mg/dl (0.66-1.25); Estimated Glomerular Filt Rate 109 ml/min (>60); GFR (African American) 132 ML/MIN (>60); Globulin 3.1 g/dL (1.3-3.2); Glucose 191 mg/dl (74-100); Potassium 4.6 mmoL/L (3.5-5.1); Sodium 132 mmol/L (136-145); Total Protein,Serum 7.0 g/dl (6.3-8.2)
[2025-04-16] MEDS: LORATADINE 10MG TABLET 10 MG PO (11:21)
[2025-04-16] MEDS: ONDANSETRON 4MG ODT 16 MG (11:21)
[2025-04-16] MEDS: FAMOTIDINE 20MG TABLET 20 MG (11:21)
[2025-04-16] MEDS: DEXAMETHASONE 4MG TABLET 12 MG (11:21)
[2025-04-16 11:30] LABS: Total Cells Counted 100
[2025-04-16 11:31] LABS: RBC Morphology Normal
[2025-04-16] MEDS: SODIUM CHLORIDE 0.9% 100ML BAG 100 ML IV (11:52)
[2025-04-16 11:55] VITALS: BP 138/85; PULSE 81; RESP 18; O2SAT 99
[2025-04-16] MEDS: WATER IV (11:55)
[2025-04-16] MEDS: PACLITAXEL IV (11:55)
[2025-04-16] MEDS: DEXTROSE 5% IV (11:55)
[2025-04-16 13:07] VITALS: BP 138/70; PULSE 76; RESP 18; O2SAT 98
[2025-04-16] MEDS: CARBOPLATIN IV (13:07)
[2025-04-16] MEDS: SODIUM CHLORIDE 0.9% IV (13:07)
[2025-04-16 13:51] VITALS: BP 135/75; PULSE 85; RESP 18; O2SAT 98
== END 2025-04-16 23:59 | disposition home or self-care (01) ==
PROVIDERS: PCP Internal Medicine; Visit Provider Internal Medicine Medical Oncology
DX: C15.9 Malignant neoplasm of esophagus, unspecified (principal); Z51.11 Encounter for antineoplastic chemotherapy
CPT/HCPCS: 80053; 85007; 85025; 96413; 96415; 96417; J7060; J8540; J9045; J9267; Q0162

== ENCOUNTER 2025-04-23 10:22 | Outpatient (CLI) | payer BC, SELFPAY ==
[2025-04-23 10:41] LABS: Hematocrit 40.1 % (42.0-52.0); Hemoglobin 13.6 g/dL (14.1-18.0); Immature Granulocytes % 0.3 %; Mean Corpuscular HGB Conc 33.9 g/dL (31.8-35.4); Mean Corpuscular Hemoglobin 28.9 pg (27.0-31.2); Mean Corpuscular Volume 85.1 fl (80-94); Nucleated Red Blood Cells % 0 %; Platelet Count 145 K/mm3 (142-424); Red Blood Count 4.71 M/mm3 (4.60-6.20); Red Cell Distribution Width-SD 43.0 fL; White Blood Count 3.1 K/mm3 (4.8-10.8)
[2025-04-23 10:51] LABS: Alanine Aminotransferase 30 U/L (12-78); Albumin Level 4.1 g/dl (3.5-5.0); Albumin/Globulin Ratio 1.5 (1.1-1.8); Alkaline Phosphatase 62 U/L (38-126); Anion Gap 11.4 mEq/L (5-15); Aspartate Amino Transferase 32 U/L (17-59); Bilirubin,Total 1.1 mg/dl (0.2-1.3); Blood Urea Nitrogen 15 mg/dl (9-20); Calcium 8.8 mg/dl (8.4-10.2); Carbon Dioxide 24 mmol/L (22.0-30.0); Chloride 98 mmol/L (98-107); Creatinine,Serum 0.80 mg/dl (0.66-1.25); Estimated Glomerular Filt Rate 93 ml/min (>60); GFR (African American) 113 ML/MIN (>60); Globulin 2.8 g/dL (1.3-3.2); Glucose 138 mg/dl (74-100); Potassium 4.4 mmoL/L (3.5-5.1); Sodium 129 mmol/L (136-145); Total Protein,Serum 6.9 g/dl (6.3-8.2)
[2025-04-23] MEDS: LORATADINE 10MG TABLET 10 MG PO (11:06)
[2025-04-23] MEDS: ONDANSETRON 4MG ODT 16 MG (11:06)
[2025-04-23] MEDS: FAMOTIDINE 20MG TABLET 20 MG (11:06)
[2025-04-23] MEDS: DEXAMETHASONE 4MG TABLET 12 MG (11:06)
[2025-04-23 11:17] LABS: RBC Morphology Normal; Total Cells Counted 100
[2025-04-23] MEDS: PACLITAXEL IV (11:39)
[2025-04-23] MEDS: WATER IV (11:39)
[2025-04-23] MEDS: DEXTROSE 5% IV (11:39)
[2025-04-23 11:45] VITALS: BP 138/74; PULSE 71; RESP 20; TEMP 36.8; O2SAT 99
[2025-04-23 12:15] VITALS: BP 130/71; PULSE 74
[2025-04-23 12:45] VITALS: BP 129/67; PULSE 72
[2025-04-23 12:50] VITALS: BP 141/72; PULSE 70
[2025-04-23] MEDS: CARBOPLATIN IV (12:50)
[2025-04-23] MEDS: SODIUM CHLORIDE 0.9% IV (12:50)
[2025-04-23 13:20] VITALS: BP 132/68; PULSE 71; RESP 20; O2SAT 98
== END 2025-04-23 23:59 | disposition home or self-care (01) ==
LOC: INF 10:23
PROVIDERS: PCP Internal Medicine; Visit Provider Internal Medicine Medical Oncology
DX: C15.9 Malignant neoplasm of esophagus, unspecified (principal); Z51.11 Encounter for antineoplastic chemotherapy
CPT/HCPCS: 80053; 85007; 85025; 85027; 96413; 96415; 96417; J7060; J8540; J9045; J9267; Q0162

== ENCOUNTER 2025-04-29 11:54 | Outpatient (CLI) | payer BC, SELFPAY ==
--- OUTSIDE RECORDS SUMMARY | 2025-02-28 07:45 | XMS_ITS | Encounter Summary ---
Author Organization [facility] Address [address] [place] [address] Care Team Providers Care Building Supervisor Name Role Phone Sánchez Torres MD Primary Care Provider [phone] Reason for Visit * Reason Comments New Patient * Consultation (Routine) - Closed Specialty Diagnoses / Procedures Referred By Paulette t Referred To Contact Cardiothoracic Surgery Diagnoses Esophageal adenocarcinoma Hever Conley MD [address] [place] [id number] Phone: tel: fax: Cardiothoracic Surgery [address] [place] [address] Phone: tel:[phone] Referral ID Status Reason Start Date Expiration Date V isits Requested Visits Authorized [id number] Closed Specialty Services Required 02/22/2025 08/24/2026 1 1 Encounter Details Date Type Department Care Team ([facility] Contact Info) Description 02/28/2025 8:45 AM EDT Office Visit Pav CC Head, Neck & Respiratory [address] [facility], 2nd [place] [address] Jewel Ojeda, DO [address] [facility] [address] [place] [address] Malignant neoplasm of lower third of esophagus [...] from the original note were not included. [facility] Department of Surgery Section of Thoracic Surgery History & Physical Note Consulting MD: Dr. Hever Conley Reason for Consultation/Chief complaint: newly diagnosed adenocarcinoma of distal esophagus History of Present Illness: Hever Elia Lemos is a 79 y.o. male w/ PMH [...] documented in this encounter Plan of Treatment Upcoming Encounters Date Type Department Care Team ([facility] st Contact Info) Description 05/23/2025 8:00 AM EST Appointment P[facility] H Pulmonary Function Testing [address] [place] [address] 05/23/2025 10:00 AM EST Appointment Medical Office Building Cardiac Diagnostic Testing Medical Office Building Echo Lab [address] [facility], [address] [place] [address] 05/23/2025 12:00 PM EST Appointment [facility] PET Scan [address] [place] [address] 05/23/2025 1:00 PM EST Appointment [facility] PET Scan [address] [place] [address] 05/23/2025 2:30 PM EST Office Visit Pav CC Head, Neck & Respiratory [address] [facility], 2nd [place] [address] Jewel Ojeda, DO [address] [facility] [address] [place] [address] documented as of this encounter Visit Diagnoses [...] documented as of this encounter Care Teams Building Supervisor Relationship Specialty Start Date End Date Sánchez Torres MD [address] [place] [address] [address] [place] [address] PCP - General 02/15/22 documented as of this encounter
--- OUTSIDE RECORDS SUMMARY | 2025-04-29 12:03 | XMS_ITS | Encounter Summary ---
Author Organization [facility] Address [address] [id number] Care Team Providers Care Leather Finisher Name Role Phone Sánchez Torres MD Primary Care Provider [phone] Encounter Details Date Type Department Care Team (Late Contact Info) Description 01/01/2025 Orders Only External Location [address] [place] [address] Provider, External Social History Tobacco Use Types [...] Department Care Team (Late Contact Info) Description 05/23/2025 8:00 AM EST Appointment P[facility] H Pulmonary Function Testing [address] [place] [address] 05/23/2025 10:00 AM EST Appointment Medical Office Building Cardiac Diagnostic Testing Medical Office Building Echo Lab [address] [facility], [address] [place] [address] 05/23/2025 12:00 PM EST Appointment [facility] PET Scan [address] [place] [address] 05/23/2025 1:00 PM EST Appointment [facility] PET Scan [address] [place] [address] 05/23/2025 2:30 PM EST Office Visit [facility] Head[facility] Neck & Respiratory 800 [facility], 2nd [place] [address] Jewel Ojeda D, DO [address] [address] documented as of this encounter Procedures Procedure [...] documented as of this encounter Care Teams Leather Finisher Relationship Specialty Start Date End Date Sánchez Torres MD [address] [place] [address] [address] [place] [address] PCP - General 02/15/22 documented as of this encounter
--- OUTSIDE RECORDS SUMMARY | 2025-04-29 12:03 | XMS_ITS | Encounter Summary ---
Author Organization [facility] Address [address] [address]6 Care Team Providers Care Deflash And Wash Operator Name Role Phone Sánchez Torres MD Primary Care Provider [phone] Encounter Details Date Type Department Care Team (Late Contact Info) Description 11/21/2024 Orders Only External Location [address] [place] [address] Provider, External Social History Tobacco Use Types [...] Appointment [facility] H Pulmonary Function Testing [address] [place] [address] 05/23/2025 10:00 AM EST Appointment Medical Office Building Cardiac Diagnostic Testing Medical Office Building Echo Lab [address] [facility], [address] [place] [address] 05/23/2025 12:00 PM EST Appointment [facility] PET Scan [address] [place] [address] 05/23/2025 1:00 PM EST Appointment [facility] PET Scan [address] [place] [address] 05/23/2025 2:30 PM EST Office Visit [facility] Head, Neck & Respiratory 800 [facility], 2nd [place] [address] Jewel Ojeda D, DO [address] [address] documented as of this encounter Procedures Procedure [...] documented as of this encounter Care Teams Deflash And Wash Operator Relationship Specialty Start Date End Date Sánchez Torres MD [address] [place] [address] [address] [place] [address] PCP - General 02/15/22 documented as of this encounter
--- OUTSIDE RECORDS SUMMARY | 2025-04-29 12:03 | XMS_ITS | Clinical Summary ---
Author Organization [facility] Address [address] [place] [phone] Care Team Providers Care Forecast Analyst Name Role Phone Sánchez Torres MD Primary Care Provider [phone] Allergies No known active allergies Medications Multiple [...] (12/02/2017): Added automatically from request for surgery [id number] Obesity due to excess calories 10/06/2017 Atrial [...] Description 05/08/2025 10:30 AM EST Office Visit [facility] [address] [facility] [address] [place] [address] Wagner Jones MD [address] [facility] [address] [address] [place] [address] Scheduled Procedures Name Priority Associated [...] history exists Medical Devices Implanted Type Area Cigar Maker Device Identifier Shelf Expiration Date Model / Serial / Lot Appl Clip Savana Atriclip Pro2 40mm - [id number] Implanted:Qty: 1 on 01/02/2018 by Bucky Holland MD at [facility] Implant Heart ATRICURE 01/05/2020 [id number] / / [id number] Procedures Procedure Name Priority Date/Time Associated Diagnosis Comments HEMOGLOBIN A1C Routine 12/18/2017 12:05 PM EDT Atrial flutter, unspecified type from Last 3 Months or Most Recently Relevant to Health Maintenance Results * (ABNORMAL) Hemoglobin A1c (12/18/2017 12:05 PM EDT) Hemoglobin A1C 6.30(H) 4.80 - 5.60 % 12/18/2017 1:42 PM EDT [facility] Blood Venipuncture / Unknown 12/18/2017 12:05 PM EDT 12/18/2017 12:48 PM EDT Narrative [facility] - 12/18/2017 1:42 PM EDT The [place] Diabetes [employer] recommends maintenance of Hemoglobin A1C at 7.0% or lower. Goals for Hemoglobin A1C reduction may need to be modified if hypoglycemia is a problem. us Becky Botello PA-C LAB BLOOD ORDERABLES Final R esult [facility]
[address] [place] [address], from Last 3 Months or Most Recently Relevant to Health Maintenance Insurance ASHLEY [employer] MEDICARE A ONLY Advance Directives * CPR (Attempt to Resuscitate) (Latest Code Status on File) Date Activated Date Inactivated Comments 01/02/2018 10:29 AM 01/03/2018 4:22 PM Question Answer Comments Code Status (Patient has no pulse and is not breathing): CPR (Attempt to Resuscitate) Medical Interventions (Patie nt has pulse or is breathing): Full Level Of Support Discussed With: Patient Care Teams Forecast Analyst Relationship Specialty Start Date End Date Sánchez Torres MD [address] [facility] [address] [place] [address] PCP - General 06/25/15
--- OUTSIDE RECORDS SUMMARY | 2025-04-29 12:03 | XMS_ITS | Encounter Summary ---
Author Organization [facility] Address [address] [id number] Care Team Providers Care Fishing Boat Captain Name Role Phone Sánchez Torres MD Primary Care Provider [phone] Encounter Details Date Type Department Care Team (Late Contact Info) Description 01/02/2025 Orders Only External Location [address] [place] [address] Provider, External Social History Tobacco Use Types [...] Appointment [facility] Pulmonary Function Testing [address] [place] [address] 05/23/2025 10:00 AM EST Appointment Medical Office Building Cardiac Diagnostic Testing Medical Office Building Echo Lab [address] [facility], [address] [place] [address] 05/23/2025 12:00 PM EST Appointment [facility] PET Scan [address] [place] [address] 05/23/2025 1:00 PM EST Appointment [facility] PET Scan [address] [place] [address] 05/23/2025 2:30 PM EST Office Visit [facility] Head, Neck & Respiratory 800 [facility], 2nd [place] [address] Jewel Ojeda D, DO [address] [address] documented as of this encounter Procedures Procedure [...] documented as of this encounter Care Teams Fishing Boat Captain Relationship Specialty Start Date End Date Sánchez Torres MD [address] [place] [address] [address] [place] [address] PCP - General 02/15/22 documented as of this encounter
--- OUTSIDE RECORDS SUMMARY | 2025-04-29 12:03 | XMS_ITS | Encounter Summary ---
Author Organization [facility] Address [address] [phone] Care Team Providers Care Haul Cane Brakeman Name Role Phone Sánchez Torres MD Primary Care Provider [phone] Encounter Details Date Type Department Care Team (Late Contact Info) Description 11/20/2024 Orders Only External Location [address] [place] [address] Provider, External Social History Tobacco Use Types [...] Appointment [facility] Pulmonary Function Testing [address] [place] [address] 05/23/2025 10:00 AM EST Appointment Medical Office Building Cardiac Diagnostic Testing Medical Office Building Echo Lab [address] [facility], [address] [place] [address] 05/23/2025 12:00 PM EST Appointment [facility] PET Scan [address] [place] [address] 05/23/2025 1:00 PM EST Appointment [facility] PET Scan [address] [place] [address] 05/23/2025 2:30 PM EST Office Visit [facility] Head, Neck & Respiratory 800 [facility], 2nd [place] [address] Jewel Ojeda D, DO [address] [address] documented as of this encounter Procedures Procedure [...] documented as of this encounter Care Teams Haul Cane Brakeman Relationship Specialty Start Date End Date Sánchez Torres MD [address] [place] [address] [address] [place] [address] PCP - General 02/15/22 documented as of this encounter
--- OUTSIDE RECORDS SUMMARY | 2025-04-29 12:03 | XMS_ITS | Encounter Summary ---
Author Organization [facility] Address [address] [place] [address] Care Team Providers Care Digital Production Operator Name Role Phone Sánchez Torres MD Primary Care Provider [phone] Reason for Visit * Reason Onset Date Comments STEFANO Nurse Liaison call 03/01/2025 Encounter Details Date Type Department Care Team (Late st Contact Info) Description 03/01/2025 Telephone Pav [facility] Head, Neck & Respiratory [address] [facility], 2nd [place] [address] Michelle Castellanos [phone] STEFANO Nurse Liaison call Social History Tobacco [...] Notes * Telephone Encounter - Michelle Castellanos B - 03/01/2025 2:15 PM EDT Patient Name: Hever Lemos : 1945 Date: 03/01/25 Referred to [facility] by: Dr. Hever Conley Affiliate Site: [facility] Services Provided: Pre/Post Appointment Phone Call Educated On: STEFANO Nurse Liaison/Psych Oncology Services Patient was referred to [facility] by his local medical oncologist. STEFANO Nurse Liaison contacted the patient for a post appointment phone call. Explained liaison services as well as other resources at [facility] including those available through Psych Oncology services, such as social workers and financial counselors. Patient states understanding of information. Patient has liaison contact information and was encouraged to call with any questions, needs or concerns. Mr. Lemos said his appt with Dr. Ojeda went well and that he will see Dr. Conley on 03/07. No needs at this time. Michelle Castellanos RN STEFANO Nurse Liaison documented in this encounter Plan of Treatment Upcoming Encounters Date Type Department Care Team ([facility] st Contact Info) Description 05/23/2025 8:00 AM EST Appointment [facility] Pulmonary Function Testing [address] [place] [address] 05/23/2025 10:00 AM EST Appointment Medical Office Building Cardiac Diagnostic Testing Medical Office Building Echo Lab [address] [facility], [address] [place] [address] 05/23/2025 12:00 PM EST Appointment [facility] PET Scan [address] [place] [address] 05/23/2025 1:00 PM EST Appointment [facility] PET Scan [address] [place] [address] 05/23/2025 2:30 PM EST Office Visit Pav [facility] Head, Neck & Respiratory [address] [facility], 2nd [place] [address] Jewel Ojeda, DO [address] [facility] [address] [place] [address] documented as of this encounter Visit Diagnoses Not on filedocumented in this encounter Additional Health Concerns Assessment Noted Time A fall risk assessment has been complete d for the patient 02/28/2025 8:54 AM EDT A Body Mass Index follow-up plan has been documented for the patient 03/01/2025 5:05 PM EDT documented as of this encounter Care Teams Digital Production Operator Relationship Specialty Start Date End Date Sánchez Torres MD [address] [facility] [address] [place], [place] [id number] PCP - General 02/15/22 documented as of this encounter
--- OUTSIDE RECORDS SUMMARY | 2025-04-29 12:03 | XMS_ITS | Encounter Summary ---
Author Organization [facility] Address [address] [id number] Care Team Providers Care Accounts Receivable Specialist Name Role Phone Sánchez Torres MD Primary Care Provider [phone] Encounter Details Date Type Department Care Team (Late Contact Info) Description 02/07/2025 Orders Only External Location [address] [place] [address] Provider, External Social History Tobacco Use Types [...] Appointment [facility] Pulmonary Function Testing [address] [place] [address] 05/23/2025 10:00 AM EST Appointment Medical Office Building Cardiac Diagnostic Testing Medical Office Building Echo Lab [address] [facility], [address] [place] [address] 05/23/2025 12:00 PM EST Appointment [facility] PET Scan [address] [place] [address] 05/23/2025 1:00 PM EST Appointment [facility] PET Scan [address] [place] [address] 05/23/2025 2:30 PM EST Office Visit Pav CC Head, Neck & Respiratory [address] [facility], 2nd [place] [address] Jewel Ojeda D, DO [address] [address] documented as of this encounter Procedures Procedure [...] documented as of this encounter Care Teams Accounts Receivable Specialist Relationship Specialty Start Date End Date áSnchez Torres MD [address] [place] [address] [address] [place] [address] PCP - General 02/15/22 documented as of this encounter
--- OUTSIDE RECORDS SUMMARY | 2025-04-29 12:03 | XMS_ITS | Encounter Summary ---
Author Organization [facility] Address [address] [id number] Care Team Providers Care Hotel Concierge Name Role Phone Sánchez Torres MD Primary Care Provider [phone] Encounter Details Date Type Department Care Team (Late Contact Info) Description 01/09/2025 Orders Only External Location [address] [place] [address] Gus Dee PA [address] [place] [address] Social History Tobacco Use Types Packs/Day Years [...] Appointment [facility] Pulmonary Function Testing [address] [place] [address] 05/23/2025 10:00 AM EST Appointment Medical Office Building Cardiac Diagnostic Testing Medical Office Building Echo Lab [address] [facility], [address] [place] [address] 05/23/2025 12:00 PM EST Appointment [facility] PET Scan [address] [place] [address] 05/23/2025 1:00 PM EST Appointment [facility] PET Scan [address] [place] [address] 05/23/2025 2:30 PM EST Office Visit Pav CC Head, Neck & Respiratory 800 [facility], 2nd [place] [address] Jewel Ojeda, DO 800 [facility] 1[address] [place] [address] documented as of this encounter Procedures Procedure [...] documented as of this encounter Care Teams Hotel Concierge Relationship Specialty Start Date End Date Sánchez Torres MD [facility] [address] [place] [address] PCP - General 02/15/22 documented as of this encounter
--- OUTSIDE RECORDS SUMMARY | 2025-04-29 12:03 | XMS_ITS | Clinical Summary ---
Author Organization [facility] Address [address] [place] [address] Care Team Providers Care Logistics Supply Officer Name Role Phone Sánchez Torres MD Primary Care Provider [phone] Allergies No known active allergies Medications metoprolol [...] Encounters Date Type Department Care Team Description 04/16/2025 Orders Only Pav [facility] Head, Neck & Respiratory [address] [place] [address] Elizabeth Guaman, RN Malignant neoplasm of lower third of esophagus (Primary Dx); Dyspnea, unspecified type 03/01/2025 Telephone [facility] Head, Neck & Respiratory [address] Michelle Castellanos Nurse Liaison call 02/28/2025 8:45 AM EDT Office Visit [facility] Head, Neck & Respiratory [address] [address] Jewel Ojeda, DO Malignant neoplasm of lower third of esophagus (CMS/HCC) (Primary Dx); Obesity (BMI 35.0-39.9 without comorbidity) 02/28/2025 Travel 02/25/2025 Lab Requisition [facility] Lab [address] Tatiana Myrick MD Dysphagia, unspecified 02/20/2025 Orders Only External Location 800 [place] [address] Provider, External 02/07/2025 Orders Only External Location 800 [place] [address] Provider, External 02/07/2025 Orders Only External Location [address] [place] [phone] Provider, External from Last 3 Months Family [...] 02/28/2025 8:56 AM EDT Plan of Treatment Upcoming Encounters Date Type Department Care Team (Late st Contact Info) Description 05/23/2025 8:00 AM EST Appointment [facility] Pulmonary Function Testing [address] [place] [address] 05/23/2025 10:00 AM EST Appointment Medical Office Building Cardiac Diagnostic Testing Medical Office Building Echo Lab [address] [facility], [address] [place] [address] 05/23/2025 12:00 PM EST Appointment [facility] PET Scan [address] [place] [address] 05/23/2025 1:00 PM EST Appointment [facility] PET Scan [address] [place] [address] 05/23/2025 2:30 PM EST Office Visit Pav CC Head, Neck & Respiratory [address] [facility], 2nd [place] [address] Jewel Ojeda, DO [address] [facility] 1[address] [place] [address] Health Maintenance Due Date Last Done Comments [...] or (1 - 1-dose 75+ series) 2022 [id number] Vaccine (7 - season) 2025 03/22/2024, 04/14/2023, 02/27/2022, Additional history exists [facility]-DTaP,Tdap,and Td Vaccines (2 - Td or Tdap) 10/16/2034 10/16/2024 [facility]-Obesity Intervention Completed 025, 05/24/2022, 04/19/2022, Additional history exists [facility]-Influenza Vaccine Completed 03/02/2025 , 03/22/2024, 03/05/2023, Additional history exists HPV Vaccines Aged Out [...] EDT) Case Report Sugical Pathology Consult Case: [id number] Authorizing Provider: Tatiana Myrick MD Collected: 02/25/2025 1423 Ordering Location: [facility] Lab Received: 02/25/2025 1424 Pathologist: Janell Bhatti MD Specimen: Esophagus, [id number] 02/25/2025 3:02 PM EDT [facility][1] Final Diagnosis ESOPHAGUS, DISTAL, BIOPSY ([id number]; 02/07/2025): - INVASIVE MODERATELY DIFFERENTIATED ADENOCARCINOMA (SEE COMMENT). 02/25/2025 3:02 PM EDT [facility][1] at 1502 EDT Comment Per pathology report ) 1) IHC for HER-2/yessica: negative (score of 0) 2) Immunohistochemical stains for MMR proteins: retained nuclear immunoreaction for all 4 proteins (MLH-1, MSH-2, MSH-6, and PMS-2). 3) PD-L1 combined positive score: <1 4) CLDN18 (43-14a): positive (>95% of tumor cells) 02/25/2025 3:02 PM EDT [facility][1] Clinical Information R13.10 - Dysphagia, unspecified [ICD-10-CM] 02/25/2025 3:02 PM EDT [facility][1] Gross Description A. [id number] Received along with a corresponding pathology report from [facility] Laboratory are 12 slides labeled outside case: [id number] collected on 02/07/2025. 02/25/2025 3:02 PM EDT [facility][1] Note: A resident was involved in the service. I attest I examined the relevant preparations for the specimens and confirmed the diagnosis or interpretation. 02/25/2025 3:02 PM EDT [facility][1] Tissue Esophageal structure / Unknown 02/25/2025 2:23 PM EDT 02/25/2025 2:23 PM EDT us Tatiana Myrick MD LAB PATHOLOGY ORDERABLES Final Result [facility][1] [address] [place] [address] * CT NEURO OUTSIDE IMAGES (02/20/2025 10:07 [...] Final from Last 3 Months Insurance MEDICARE [facility] Care Teams Logistics Supply Officer Relationship Specialty Start Date End Date Sánchez Torres MD [address] [facility] [address] [place] [address] PCP - General 02/15/22
--- OUTSIDE RECORDS SUMMARY | 2025-04-29 12:03 | XMS_ITS | Encounter Summary ---
Author Organization [facility] Address [address] [place] [address] Care Team Providers Care Instrumentation Engineering Technician Name Role Phone Sánchez Torres MD Primary Care Provider [phone] Reason for Referral * Imaging (Routine) - Pending Review Specialty Diagnoses / Procedures Referred By Contac t Referred To Contact Radiology Diagnoses Malignant neoplasm of lower third of esophagus Procedures PET/CT FDG Skull Base To Mid Thigh Jewel Ojeda, DO [address] [address] Phone: tel: fax: Referral ID Status Reason Start Date Expiration Date V isits Requested Visits Authorized [id number] Pending Review 04/16/2025 10/16/2026 2 2 * Imaging (Routine) - Pending Review Specialty Diagnoses / Procedures Referred By Paulette clements Referred To Contact Cardiology Diagnoses Malignant neoplasm of lower third of esophagus Dyspnea, unspecified type Procedures Echo, Adult Transthoracic Complete Jewel Ojeda, [address] [address] Phone: tel: fax: Referral ID Status Reason Start Date Expiration Date Visits Requested Visits Authorized [id number] Pending Review Perform Procedure 10/16/2026 1 1 Encounter Details Date Type Department Care Team (Late st Contact Info) Description 04/16/2025 Orders Only Pav [facility] Head, Neck & Respiratory [address] [facility], 2nd [place] [address] Elizabeth Guaman, RN [facility] None Malignant neoplasm of lower third of esophagus (Primary Dx); Dyspnea, unspecified type Social History Tobacco Use Types Packs/Day Years [...] Upcoming Encounters Date Type Department Care Team ([facility] st Contact Info) Description 05/23/2025 8:00 AM EST Appointment [facility] Pulmonary Function Testing 800 [place] [address] 05/23/2025 10:00 AM EST Appointment Medical Office Building Cardiac Diagnostic Testing Medical Office Building Echo Lab [address] [facility], [address] [place] [address] 05/23/2025 12:00 PM EST Appointment [facility] PET Scan [address] [place] [address] 05/23/2025 1:00 PM EST Appointment [facility] PET Scan [address] [place] [address] 05/23/2025 2:30 PM EST Office Visit Pav CC Head, Neck & Respiratory [address] [facility], 2nd [place] [address] Jewel Ojeda, DO [address] [facility] 1[address] [place] [address] Scheduled Orders Name Type Priority Associated Diagnoses Orde r Schedule Echo, Adult Transthoracic Complete Echocardiography Routine Malignant neoplasm of lower third of esophagus Dyspnea, unspecified type Expected: 05/23/2025 (Approximate), Expires: 10/18/2026 PET/CT FDG Skull Base To Mid Thigh Imaging Routine Malignant neoplasm of lower third of esophagus Expected: 05/23/2025 (Approximate), Expires: 10/18/2026 Pulmonary function testing PFT Routine Malignant neoplasm of lower third of esophagus Dyspnea, unspecified type Expected: 05/23/2025, Expires: 10/18/2026 documented as of this encounter Visit Diagnoses Diagnosis Malignant neoplasm of lower third of esophagus- Primary Dyspnea, unspecified type documented in this encounter Additional Health Concerns Assessment Noted Time A fall risk assessment has been complete d for the patient 02/28/2025 8:54 AM EDT A Body Mass Index follow-up plan has been documented for the patient 03/01/2025 5:05 PM EDT documented as of this encounter Care Teams Instrumentation Engineering Technician Relationship Specialty Start Date End Date Sánchez Torres MD [address] [place] [address] [address] [place] [address] PCP - General 02/15/22 documented as of this encounter
--- OUTSIDE RECORDS SUMMARY | 2025-04-29 12:03 | XMS_ITS | Encounter Summary ---
Author Organization [facility] Address [address] [id number] Care Team Providers Care Earth Science Technical Officer Name Role Phone Sánchez Torres MD Primary Care Provider [phone] Encounter Details Date Type Department Care Team (Late Contact Info) Description 01/23/2024 Orders Only External Location [address] [place] [address] Provider, External Social History Tobacco Use Types [...] Appointment [facility] Pulmonary Function Testing [address] [place] [address] 05/23/2025 10:00 AM EST Appointment Medical Office Building Cardiac Diagnostic Testing Medical Office Building Echo Lab [address] [facility], [address] [place] [address] 05/23/2025 12:00 PM EST Appointment [facility] PET Scan [address] [place] [address] 05/23/2025 1:00 PM EST Appointment [facility] PET Scan [address] [place] [address] 05/23/2025 2:30 PM EST Office Visit Pav CC Head, Neck & Respiratory 800 [facility], 2nd [place] [address] Jewel Ojeda D, DO [address] [address] documented as of this encounter Procedures Procedure [...] documented as of this encounter Care Teams Earth Science Technical Officer Relationship Specialty Start Date End Date Sánchez Torres MD [address] [place] [address] [address] [place] [address] PCP - General 02/15/22 documented as of this encounter
--- OUTSIDE RECORDS SUMMARY | 2025-04-29 12:03 | XMS_ITS | Encounter Summary ---
Author Organization [facility] Address [address] [id number] Care Team Providers Care Furnace Clerk Name Role Phone Sánchez Torres MD Primary Care Provider [phone] Encounter Details Date Type Department Care Team (Late Contact Info) Description 02/07/2025 Orders Only External Location [address] [place] [address] Provider, External Social History Tobacco Use Types [...] Appointment [facility] Pulmonary Function Testing [address] [place] [address] 05/23/2025 10:00 AM EST Appointment Medical Office Building Cardiac Diagnostic Testing Medical Office Building Echo Lab [address] [facility], [address] [place] [address] 05/23/2025 12:00 PM EST Appointment [facility] PET Scan [address] [place] [address] 05/23/2025 1:00 PM EST Appointment [facility] PET Scan [address] [place] [address] 05/23/2025 2:30 PM EST Office Visit Pav CC Head, Neck & Respiratory 800 [facility], 2nd [place] [address] Jewel Ojeda D, DO [address] [address] documented as of this encounter Procedures Procedure [...] documented as of this encounter Care Teams Furnace Clerk Relationship Specialty Start Date End Date Sánchez Torres MD [address] [place] [address] [address] [place] [address] PCP - General 02/15/22 documented as of this encounter
--- OUTSIDE RECORDS SUMMARY | 2025-04-29 12:03 | XMS_ITS | Encounter Summary ---
Author Organization [facility] Address [address] [id number] Care Team Providers Care Ornamental Bronze Worker Name Role Phone Sánchez Torres MD Primary Care Provider [phone] Encounter Details Date Type Department Care Team ([facility] Contact Info) Description 02/25/2025 Lab Requisition [facility] Lab [address] [place] [address] Tatiana Myrick MD [address] [facility] [address] [place] [address] Dysphagia, unspecified Social History Tobacco [...] Upcoming Encounters Date Type Department Care Team ([facility] Contact Info) Description 05/23/2025 8:00 AM EST Appointment [facility] Pulmonary Function Testing [address] [place] [address] 05/23/2025 10:00 AM EST Appointment Medical Office Building Cardiac Diagnostic Testing Medical Office Building Echo Lab [address] [facility], [address] [place] [address] 05/23/2025 12:00 PM EST Appointment [facility] PET Scan [address] [place] [address] 05/23/2025 1:00 PM EST Appointment [facility] PET Scan [address] [place] [address] 05/23/2025 2:30 PM EST Office Visit Pav CC Head, Neck & Respiratory 800 [facility], 2nd [place] [address] Jewel Ojeda, DO 800 [facility] [address] [place] [address] documented as of this encounter Procedures Procedure Name Priority Date/Time Associated Diagnosis Comments SURGICAL PATHOLOGY CONSULT Routine 02/25/2025 2:23 PM EDT Dysphagia, unspecified documented in this encounter Results * Surgical Pathology Consult (02/25/2025 2:23 PM EDT) Case Report Sugical Pathology Consult Case: [id number] Authorizing Provider: Tatiana Myrick MD Collected: 02/25/2025 [facility] Ordering Location: [facility] Lab Received: 02/25/2025 [facility] Pathologist: Janell Bhatti MD Specimen: Esophagus, [id number] 02/25/2025 3:02 PM EDT [facility] Final Diagnosis ESOPHAGUS, DISTAL, BIOPSY ([id number]; 02/07/2025): - INVASIVE MODERATELY DIFFERENTIATED ADENOCARCINOMA (SEE [...] [facility] Gross Description A. [id number] Received along with a corresponding pathology report from [facility] Laboratory are 12 slides labeled outside case: [id number] collected on 02/07/2025. 02/25/2025 3:02 PM EDT [...] Result [facility] [address] [place] [address] documented in this encounter Visit Diagnoses Diagnosis Dysphagia, unspecified documented in this encounter Additional Health Concerns Assessment Noted Time A fall risk assessment has been complete d for the patient 05/24/2022 10:42 AM EST documented as of this encounter Care Teams Ornamental Bronze Worker Relationship Specialty Start Date End Date Sánchez Torres MD [address] [place] [address] [address] [place] [address] PCP - General 02/15/22 documented as of this encounter
--- OUTSIDE RECORDS SUMMARY | 2025-04-29 12:03 | XMS_ITS | Encounter Summary ---
Author Organization [facility] Address [address] [id number] Care Team Providers Care Nylon Hot Wire Cutter Name Role Phone Sánchez Torres MD Primary Care Provider [phone] Encounter Details Date Type Department Care Team [...] 6. Suicidal Behavior (Lifetime) No 8:54 AM JESSICAT Ana María Lujan documented as of this encounter Plan of Treatment Upcoming Encounters Date Type Department Care Team (Late st Contact Info) Description 05/23/2025 8:00 AM EST Appointment [facility] Pulmonary Function Testing [address] [place] [address] 05/23/2025 10:00 AM EST Appointment Medical Office Building Cardiac Diagnostic Testing Medical Office Building Echo Lab [address] [facility], [address] [place] [address] 05/23/2025 12:00 PM EST Appointment [facility] PET Scan 800 [place] [address] 05/23/2025 1:00 PM EST Appointment [facility] PET Scan 800 [place] [address] 05/23/2025 2:30 PM EST Office Visit Pav CC Head, Neck & Respiratory 800 [facility], 2nd [place] [address] Jewel Ojeda D, DO 800 [facility] [address] [place] [address] documented as of this encounter Visit Diagnoses Not on filedocumented in this encounter Additional Health Concerns Assessment Noted Time A fall risk assessment has been complete d for the patient 02/28/2025 8:54 AM EDT A Body Mass Index follow-up plan has been documented for the patient 03/01/2025 5:05 PM EDT documented as of this encounter Care Teams Nylon Hot Wire Cutter Relationship Specialty Start Date End Date Sánchez Torres MD [address] [facility] [address] [place] [address] PCP - General 02/15/22 documented as of this encounter
--- OUTSIDE RECORDS SUMMARY | 2025-04-29 12:03 | XMS_ITS | Encounter Summary ---
Author Organization [facility] Address [address] [id number] Care Team Providers Care Launch Operator Name Role Phone Sánchez Torres MD Primary Care Provider [phone] Encounter Details Date Type Department Care Team (Late Contact Info) Description 11/20/2024 Orders Only External Location 800 [place] [address] Provider, External Social History Tobacco Use Types [...] Appointment [facility] Pulmonary Function Testing 800 [place] [address] 05/23/2025 10:00 AM EST Appointment Medical Office Building Cardiac Diagnostic Testing Medical Office Building Echo Lab [address] [facility], [address] [place] [address] 05/23/2025 12:00 PM EST Appointment [facility] PET Scan [address] [place] [address] 05/23/2025 1:00 PM EST Appointment [facility] PET Scan 800 [place] [address] 05/23/2025 2:30 PM EST Office Visit Pav CC Head, Neck & Respiratory 800 [facility], 2nd [place] [address] Jewel Ojeda D, DO [address] [address] documented as of this encounter Procedures Procedure [...] documented as of this encounter Care Teams Launch Operator Relationship Specialty Start Date End Date Sánchez Torres MD [address] [place] [address] [address] [place] [address] PCP - General 02/15/22 documented as of this encounter
[2025-04-29 12:06] LABS: Hematocrit 38.0 % (42.0-52.0); Hemoglobin 13.3 g/dL (14.1-18.0); Immature Granulocytes % 0.5 %; Mean Corpuscular HGB Conc 35.0 g/dL (31.8-35.4); Mean Corpuscular Hemoglobin 29.4 pg (27.0-31.2); Mean Corpuscular Volume 83.9 fl (80-94); Nucleated Red Blood Cells % 0 %; Platelet Count 154 K/mm3 (142-424); Red Blood Count 4.53 M/mm3 (4.60-6.20); Red Cell Distribution Width-SD 43.6 fL
[2025-04-29 12:08] VITALS: BP 124/71; PULSE 97; RESP 18; O2SAT 100
[2025-04-29] MEDS: 0.9 % SODIUM CHLORIDE 1000ML 1,000 ML 999 ML IV (12:08)
[2025-04-29 12:10] LABS: White Blood Count 1.9 K/mm3 (4.8-10.8)
[2025-04-29 12:27] LABS: Alanine Aminotransferase 40 U/L (12-78); Albumin Level 3.9 g/dl (3.5-5.0); Albumin/Globulin Ratio 1.2 (1.1-1.8); Alkaline Phosphatase 64 U/L (38-126); Anion Gap 13.4 mEq/L (5-15); Aspartate Amino Transferase 37 U/L (17-59); Bilirubin,Total 1.1 mg/dl (0.2-1.3); Blood Urea Nitrogen 18 mg/dl (9-20); Calcium 9.1 mg/dl (8.4-10.2); Carbon Dioxide 23 mmol/L (22.0-30.0); Chloride 100 mmol/L (98-107); Creatinine,Serum 0.80 mg/dl (0.66-1.25); Estimated Glomerular Filt Rate 93 ml/min (>60); GFR (African American) 113 ML/MIN (>60); Globulin 3.2 g/dL (1.3-3.2); Glucose 199 mg/dl (74-100); Potassium 4.4 mmoL/L (3.5-5.1); Sodium 132 mmol/L (136-145); Total Protein,Serum 7.1 g/dl (6.3-8.2)
[2025-04-29] MEDS: DEXAMETHASONE 4MG/ML 1ML VIAL 4 MG (12:29)
[2025-04-29 12:33] LABS: RBC Morphology Normal; Total Cells Counted 100
[2025-04-29] MEDS: APAP/HYDROCODONE 325MG/7.5MG TAB 1 TAB PO (13:00)
[2025-04-29 13:20] VITALS: BP 134/76; PULSE 89; RESP 18; O2SAT 100
== END 2025-04-29 23:59 | disposition home or self-care (01) ==
PROVIDERS: PCP Internal Medicine; Visit Provider Internal Medicine Medical Oncology
DX: C15.9 Malignant neoplasm of esophagus, unspecified (principal)
CPT/HCPCS: 80053; 85007; 85025; 85027; 96360; 96374; 96375; J1100; J7030